=== PATIENT | male | born 1970 | race Caucasian/White ===

== ENCOUNTER 2019-12-05 11:40 | Inpatient (IN) | payer BC ==
--- NOTE | 2019-12-05 12:23 | ED ---
General Adult HPI - General Chief complaint: Shortness of Breath Stated complaint: SOB Time Seen by Provider: 12/05/19 11:45 Source: patient, RN notes reviewed, old records reviewed Mode of arrival: ambulatory Limitations: no limitations - History of Present Illness Initial comments: This is a 49-year-old male who presents emergency department stating that about 2 weeks ago had a cold and ever since then he started difficulty breathing or difficulty breathing is gotten progressively worse per patient states it particularly flat his made it worse. Sitting up he feels better. Patient states also noticed some edema to his legs over the last 3 days. Patient denies any fever chills per patient denies cough currently. Patient denies any chest pain or pressure. Patient denies any palpitations. Even though his heart rates over 100. Patient denies any headache patient denies numbness weakness. Patient denies any history of heart disease. Patient states he does have a family history of heart disease. Patient denies diabetes high blood pressure or high cholesterol. Patient denies any smoking history. - Related Data Home Medications Medication Instructions Recorded Confirmed Fexofenadine HCl [Dottie Allergy] 180 mg PO DAILY PRN 12/05/19 12/05/19 Allergies Allergy/AdvReac Type Severity Reaction Status Date / Time No Known Allergies Allergy Verified 12/05/19 14:05 Review of Systems ROS Statement: Those systems with pertinent positive or pertinent negative responses have been documented in the HPI. ROS Other: All systems not noted in ROS Statement are negative. Past Medical History Past Medical History: No Reported History History of Any Multi-Drug Resistant Organisms: None Reported Past Surgical History: No Surgical Hx Reported Past Psychological History: No Psychological Hx Reported Smoking Status: Never smoker Past Alcohol Use History: None Reported Past Drug Use History: None Reported - Past Family History Father Family Medical History: Coronary Artery Disease (CAD), Hyperlipidemia Additional Family Medical History / Comment(s): Father had CABG 25 yrs ago Mother Family Medical History: Neurologic Disorder Additional Family Medical History / Comment(s): Mother of progressive neuropalsy General Exam - General Exam Comments Initial Comments: GENERAL: Patient is well-developed and well-nourished. Patient is nontoxic and well- hydrated and is in mild distress. ENT: Neck is soft and supple. No significant lymphadenopathy is noted. Oropharynx is clear. Moist mucous membranes. Neck has full range of motion without eliciting any pain. EYES: The sclera were anicteric and conjunctiva were pink and moist. Extraocular movements were intact and pupils were equal round and reactive to light. Eyelids were unremarkable. PULMONARY: Unlabored respirations. Good breath sounds bilaterally. No audible rales rhonchi or wheezing was noted. CARDIOVASCULAR: Patient is tachycardic at 110 beats a minute ABDOMEN: Soft and nontender with normal bowel sounds. SKIN: Skin is clear with no lesions or rashes and otherwise unremarkable. NEUROLOGIC: Patient is alert and oriented x3. Cranial nerves II through XII are grossly intact. Motor and sensory are also intact. Normal speech, volume and content. Symmetrical smile. MUSCULOSKELETAL: Normal extremities with adequate strength and full range of motion. 1+ bilaterally LYMPHATICS: No significant lymphadenopathy is noted PSYCHIATRIC: Normal psychiatric evaluation. Limitations: no limitations Course Vital Signs 12/05/19 12/05/19 12/05/19 11:44 12:03 12:56 Temperature 98.7 F Pulse Rate 116 H 108 H Respiratory 18 20 18 Rate Blood Pressure 181/113 169/124 O2 Sat by Pulse 98 94 L Oximetry 12/05/19 14:00 Temperature Pulse Rate 92 Respiratory 18 Rate Blood Pressure 132/93 O2 Sat by Pulse 96 Oximetry Medical Decision Making - Medical Decision Making EKG shows sinus tachycardia 114 bpm FL interval is 214 QRS is under QT intervals 324 QTC is 446. Patient's EKG shows no ST segment elevation or depression. I spoke with Dr. Kern the care taker and he was in agreement with the current treatment that we are undergoing in the emergency department. I spoke with Dr. grimm and he agreed to admit the patient. I admitted the patient wrote admitting orders. Chest x-ray shows pulmonary edema. Echocardiogram was in the emergency department and there was some wall dysfunction as well as a low ejection fraction however in official report was not yet given. Patient also had no pericardial effusion The d-dimer was elevated so a CT of the chest was ordered. Patient was started on heparin patient was also given labetalol and hydralazine in the emergency department as well as aspirin and Nitropaste and a nitroglycerin drip. - Lab Data Result diagrams: 12/05/19 12:27 12/05/19 12:27 Lab Results 12/05/19 12/05/19 12/05/19 Range/Units 12:27 12:27 12:27 WBC 13.4 H (3.8-10.6) k/uL RBC 5.70 (4.30-5.90) m/uL Hgb 16.9 (13.0-17.5) gm/dL Hct 51.1 (39.0-53.0) % MCV 89.7 (80.0-100.0) fL MCH 29.6 (25.0-35.0) pg MCHC 33.0 (31.0-37.0) g/dL RDW 14.2 (11.5-15.5) % Plt Count 306 (150-450) k/uL Neutrophils % 87 % Lymphocytes % 8 % Monocytes % 4 % Eosinophils % 0 % Basophils % 1 % Neutrophils # 11.6 H (1.3-7.7) k/uL Lymphocytes # 1.0 (1.0-4.8) k/uL Monocytes # 0.5 (0-1.0) k/uL Eosinophils # 0.0 (0-0.7) k/uL Basophils # 0.1 (0-0.2) k/uL PT 10.3 (9.0-12.0) sec INR 1.0 (<1.2) APTT 24.8 (22.0-30.0) sec D-Dimer 0.72 H (<0.60) mg/L FEU Sodium 138 (137-145) mmol/L Potassium 4.2 (3.5-5.1) mmol/L Chloride 105 (98-107) mmol/L Carbon Dioxide 19 L (22-30) mmol/L Anion Gap 14 mmol/L BUN 7 L (9-20) mg/dL Creatinine 0.62 L (0.66-1.25) mg/dL Est GFR (CKD-EPI)AfAm >90 (>60 ml/min/1.73 sqM) Est GFR (CKD-EPI)NonAf >90 (>60 ml/min/1.73 sqM) Glucose 325 H (74-99) mg/dL Lactic Ac Sepsis Rflx Plasma Lactic Acid Boubacar (0.7-2.0) mmol/L Calcium 9.5 (8.4-10.2) mg/dL Magnesium 1.7 (1.6-2.3) mg/dL Total Bilirubin 1.0 (0.2-1.3) mg/dL AST 23 (17-59) U/L ALT 18 (4-49) U/L Alkaline Phosphatase 119 (38-126) U/L Troponin I (0.000-0.034) ng/mL NT-Pro-B Natriuret Pep pg/mL Total Protein 7.5 (6.3-8.2) g/dL Albumin 4.2 (3.5-5.0) g/dL 12/05/19 12/05/19 12/05/19 Range/Units 12:27 12:27 12:27 WBC (3.8-10.6) k/uL RBC (4.30-5.90) m/uL Hgb (13.0-17.5) gm/dL Hct (39.0-53.0) % MCV (80.0-100.0) fL MCH (25.0-35.0) pg MCHC (31.0-37.0) g/dL RDW (11.5-15.5) % Plt Count (150-450) k/uL Neutrophils % % Lymphocytes % % Monocytes % % Eosinophils % % Basophils % % Neutrophils # (1.3-7.7) k/uL Lymphocytes # (1.0-4.8) k/uL Monocytes # (0-1.0) k/uL Eosinophils # (0-0.7) k/uL Basophils # (0-0.2) k/uL PT (9.0-12.0) sec INR (<1.2) APTT (22.0-30.0) sec D-Dimer (<0.60) mg/L FEU Sodium (137-145) mmol/L Potassium (3.5-5.1) mmol/L Chloride (98-107) mmol/L Carbon Dioxide (22-30) mmol/L Anion Gap mmol/L BUN (9-20) mg/dL Creatinine (0.66-1.25) mg/dL Est GFR (CKD-EPI)AfAm (>60 ml/min/1.73 sqM) Est GFR (CKD-EPI)NonAf (>60 ml/min/1.73 sqM) Glucose (74-99) mg/dL Lactic Ac Sepsis Rflx Plasma Lactic Acid Boubacar 3.1 H* (0.7-2.0) mmol/L Calcium (8.4-10.2) mg/dL Magnesium (1.6-2.3) mg/dL Total Bilirubin (0.2-1.3) mg/dL AST (17-59) U/L ALT (4-49) U/L Alkaline Phosphatase (38-126) U/L Troponin I 0.777 H* (0.000-0.034) ng/mL NT-Pro-B Natriuret Pep 2290 pg/mL Total Protein (6.3-8.2) g/dL Albumin (3.5-5.0) g/dL 12/05/19 Range/Units 13:06 WBC (3.8-10.6) k/uL RBC (4.30-5.90) m/uL Hgb (13.0-17.5) gm/dL Hct (39.0-53.0) % MCV (80.0-100.0) fL MCH (25.0-35.0) pg MCHC (31.0-37.0) g/dL RDW (11.5-15.5) % Plt Count (150-450) k/uL Neutrophils % % Lymphocytes % % Monocytes % % Eosinophils % % Basophils % % Neutrophils # (1.3-7.7) k/uL Lymphocytes # (1.0-4.8) k/uL Monocytes # (0-1.0) k/uL Eosinophils # (0-0.7) k/uL Basophils # (0-0.2) k/uL PT (9.0-12.0) sec INR (<1.2) APTT (22.0-30.0) sec D-Dimer (<0.60) mg/L FEU Sodium (137-145) mmol/L Potassium (3.5-5.1) mmol/L Chloride (98-107) mmol/L Carbon Dioxide (22-30) mmol/L Anion Gap mmol/L BUN (9-20) mg/dL Creatinine (0.66-1.25) mg/dL Est GFR (CKD-EPI)AfAm (>60 ml/min/1.73 sqM) Est GFR (CKD-EPI)NonAf (>60 ml/min/1.73 sqM) Glucose (74-99) mg/dL Lactic Ac Sepsis Rflx Y Plasma Lactic Acid Boubacar (0.7-2.0) mmol/L Calcium (8.4-10.2) mg/dL Magnesium (1.6-2.3) mg/dL Total Bilirubin (0.2-1.3) mg/dL AST (17-59) U/L ALT (4-49) U/L Alkaline Phosphatase (38-126) U/L Troponin I (0.000-0.034) ng/mL NT-Pro-B Natriuret Pep pg/mL Total Protein (6.3-8.2) g/dL Albumin (3.5-5.0) g/dL Critical Care Time Critical Care Time: Yes Total Critical Care Time: 35 Disposition Clinical Impression: Non-STEMI (non-ST elevated myocardial infarction), Hypertensive urgency, Pulmonary edema, Hyperglycemia, Mass of soft tissue of abdomen Disposition: ADMITTED IP TO THIS [facility] Time of Disposition: 14:10
[2019-12-05 12:44] LABS: Basophils # (A) 0.1 k/uL (0-0.2); Basophils % (A) 1 %; Eosinophils % (A) 0 %; HCT 51.1 % (39.0-53.0); HGB 16.9 gm/dL (13.0-17.5); Lymphocytes % (A) 8 %; MCH 29.6 pg (25.0-35.0); MCV 89.7 fL (80.0-100.0); Mean Platelet Volume 9.2; Monocytes # (A) 0.5 k/uL (0-1.0); Monocytes % (A) 4 %; Neutrophils # (A) 11.6 k/uL (1.3-7.7); Neutrophils % (A) 87 %; Platelet Count 306 k/uL (150-450); RDW 14.2 % (11.5-15.5); WBC 13.4 k/uL (3.8-10.6)
--- NOTE | 2019-12-05 12:44 | XR ---
EXAMINATION TYPE: XR chest 2V DATE OF EXAM: 12/05/2019 COMPARISON: NONE HISTORY: Difficulty breathing TECHNIQUE: Frontal and lateral views of the chest are obtained. FINDINGS: Interstitium is increased. Patchy nodular perihilar airspace disease is present bilaterall y. No evident pneumothorax or sizable effusion. The heart is borderline enlarged. There are overlying cardiac leads. IMPRESSION: Correlate for congestive heart failure, follow-up is recommended to exclude underlying m ass. Ammonia not excluded.
[2019-12-05] MEDS ORDERED: FUROSEMIDE 10 MG/ML 4 ML VIAL IV STA (12:46)
[2019-12-05] MEDS ORDERED: LABETALOL 5 MG/ML VIAL MDV IVP STA (12:46)
[2019-12-05] MEDS ORDERED: NITROGLYCERIN OINT 1 INCH/GM PACKET TOPICAL STA (12:47)
[2019-12-05 12:53] LABS: ALT 18 U/L (4-49); AST 23 U/L (17-59); African American GFR (CKD) >90 (>60 ml/min/1.73 sqM); Albumin 4.2 g/dL (3.5-5.0); Alkaline Phosphatase 119 U/L (38-126); Anion Gap 14 mmol/L; Blood Urea Nitrogen 7 mg/dL (9-20); Calcium 9.5 mg/dL (8.4-10.2); Carbon Dioxide 19 mmol/L (22-30); Chloride 105 mmol/L (98-107); Glucose 325 mg/dL (74-99); Magnesium 1.7 mg/dL (1.6-2.3); Non-African American GFR(CKD) >90 (>60 ml/min/1.73 sqM); Potassium 4.2 mmol/L (3.5-5.1); Sodium 138 mmol/L (137-145); Total Protein 7.5 g/dL (6.3-8.2)
[2019-12-05 13:30] LABS: Partial Thromboplastin Time 24.8 sec (22.0-30.0); Prothrombin Time 10.3 sec (9.0-12.0)
[2019-12-05] MEDS ORDERED: HEPARIN SODIUM,PORCINE 5,000 UNIT/ML 1 ML VIAL IV ONE (13:35)
[2019-12-05] MEDS ORDERED: hydrALAZINE HCL 20 MG/ML 1 ML VIAL IVP STA (13:39)
[2019-12-05 13:56] LABS: D-Dimer 0.72 mg/L FEU (<0.60)
[2019-12-05] MEDS: HEPARIN SOD,PORK IN 0.45% NACL 25,000 UNIT in 0.45% NACL 1 250ML.BAG IV SCH (13:57)
[2019-12-05] MEDS ORDERED: NITROGLYCERIN-D5W PMX 50 MG in DEXTROSE/WATER 1 250ML.BAG IV ONE (14:07)
[2019-12-05] MEDS ORDERED: NITROGLYCERIN SL TABS 0.4 MG TAB SUBLINGUAL PRN (14:11)
[2019-12-05 14:44] LABS: Glucose,Whole Blood 312 mg/dL (75-99)
--- NOTE | 2019-12-05 14:46 | CT ---
EXAMINATION TYPE: CT chest angio for PE DATE OF EXAM: 12/05/2019 COMPARISON: None HISTORY: Shortness of breath. CT DLP: 665.4 mGycm CONTRAST: CT chest with contrast and 3D reconstruction with MIP imaging is performed with IV Contrast, patient injected with 100 mL of Isovue 300. Contrast-enhanced CT of the chest was performed through the course of the pulmonary arteries with miriam g and mediastinal window settings submitted. 3D reconstruction with MIP imaging was also performed. PULMONARY ARTERIES: The pulmonary arteries and their major tributaries are patent. I do not see carlos dence for sizable filling defect to suggest pulmonary embolic process. LUNGS: There is evidence of cardiomegaly with pulmonary venous congestion. Bilateral pleural effusion s noted right greater than left. Scattered areas of perihilar infiltrate noted. The findings may refl ect pulmonary edema with congestive failure. Infiltrates of other etiology not excluded. Correlate cl inically. MEDIASTINUM: Thoracic aorta is of normal caliber,however, evaluation is limited given timing of the contrast bolus. If there is concern for thoracic aortic pathology consider ROXIE. Correlate clinicall y . The heart is not enlarged. No evidence for mediastinal mass. No mediastinal lymph nodes greater than 1cm. HILAR STRUCTURES: No evidence for mass. No hilar lymph nodes greater than 1 cm. UPPER ABDOMEN: Suspect soft tissue mass left upper quadrant measuring 7.8 x 5.9 cm. Contrast-enhanced CT of the abdomen and pelvis is advised. Decreased attenuation within the spleen at its periphery co uld reflect an area of the infarct. Underlying lesion is not excluded. IMPRESSION: 1. No evidence for Pulmonary embolism at this time. 2. Findings which may reflect congestive failure with pulmonary edema. Underlying pneumonia is not ex cluded. Correlate clinically. 3. Suspect soft tissue mass left upper quadrant measuring 7.8 x 5.9 cm. Contrast-enhanced CT of the a bdomen and pelvis is advised. Decreased attenuation within the spleen at its periphery could reflect an area of the infarct. Underlying lesion is not excluded.
--- NOTE | 2019-12-05 16:57 | P.HPIM ---
History of Present Illness H&P Date: 12/05/19 49-year-old male with no significant past medical history, has never seen a PCP presents to the ED for shortness of breath. Patient reports 2 weeks ago having flulike symptoms characterized by rhinorrhea, nasal congestion, dry cough and myalgias. He was tested for coronavirus at that time and states he was negative. He reports shortness of breath that has been ongoing for the past 2 days. Shortness of breath is worsened with exertion. He also reports orthopnea over the last 2 days, sleeps on one pillow at night. He reports lower extremity swelling as well. These constellation of symptoms prompted patient to come to the ED. He denies any headache, nausea or vomiting, fever or chills, chest pain, palpitations, changes in urination or bowel habits. No changes in appetite or weight. He denies any dizziness, numbness/weakness/tingling of the extremities. In the ED, he was in hypertensive urgency with BP of 181/113 with pulse of 116. CBC showed WBC count of 13.4. D-dimer was elevated at 0.72. CMP showed bicarb of 19, BUN 7, creatinine 0.62, glucose 325. Lactic acid was eleva jessy at 3.1. Troponin was 0.777, 0.789, EKG showing sinus tachycardia with first-degree AV block and T-wave inversions. BNP was 2290, chest x-ray showing congestive heart failure. CTA chest showed no PE, congestive heart failure with pulmonary edema, soft tissue mass left upper quadrant 7.8 x 5.9 cm, recommending CT contrast-enhanced of the abdomen and pelvis. Patient is admitted for hypertensive urgency, non-ST elevation MD and CHF exacerbation with cardiology in consultation. Review of Systems Pertinent positives and negatives as discussed in HPI, a complete review of systems was performed and all other systems are negative. Past Medical History Past Medical History: No Reported History Additional Past Medical History / Comment(s): Sinus infections/allergies History of Any Multi-Drug Resistant Organisms: None Reported Past Surgical History: No Surgical Hx Reported Past Anesthesia/Blood Transfusion Reactions: Unable to Obtain Additional Past Anesthesia/Blood Transfusion Reaction / Comment(s): Pt has never had anesthesia Past Psychological History: No Psychological Hx Reported Smoking Status: Never smoker Past Alcohol Use History: None Reported Past Drug Use History: None Reported - Past Family History Father Family Medical History: Coronary Artery Disease (CAD), Hyperlipidemia Additional Family Medical History / Comment(s): Father had CABG 25 yrs ago Mother Family Medical History: Neurologic Disorder Additional Family Medical History / Comment(s): Mother of progressive neuropalsy Medications and Allergies Home Medications Medication Instructions Recorded Confirmed Type Fexofenadine HCl [Dottie Allergy] 180 mg PO DAILY PRN 12/05/19 12/05/19 History Allergies Allergy/AdvReac Type Severity Reaction Status Date / Time No Known Allergies Allergy Verified 12/05/19 14:05 Physical Exam Vitals: Vital Signs Temp Pulse Resp BP Pulse Ox 12/05/19 15:00 95 18 135/97 96 12/05/19 14:00 92 18 132/93 96 12/05/19 12:56 108 H 18 169/124 94 L 12/05/19 12:03 20 12/05/19 11:44 98.7 F 116 H 18 181/113 98 Intake and Output 12/05/19 12/05/19 12/05/19 06:59 14:59 22:59 Other: Weight 101.605 kg 101.605 kg General: [non toxic], [no distress], [appears at stated age] Derm: [warm], [dry] Head: [atraumatic], [normocephalic], [symmetric] Eyes: [EOMI], [no lid lag], [anicteric sclera] Mouth: [no lip lesion], [mucus membranes moist] Cardiovascular: [S1S2 reg], [tachycardic], [positive posterior tibial pulse bilateral], Lungs: [Decreased breath sounds bilateral], [no rhonchi, no rales] , [no accessory muscle use] Abdominal: [soft], [ nontender to palpation], [no guarding], [no appreciable organomegaly] Ext: [no gross muscle atrophy], [2+ pitting lower extremity bilateral edema], [no contractures] Neuro: [ CN II-XI grossly intact], [no focal neuro deficits] Psych: [Alert], [oriented], [appropriate affect] Results CBC & Chem 7: 12/05/19 12:27 12/05/19 12:27 Labs: Abnormal Lab Results - Last 24 Hours (Table) 12/05/19 12/05/19 12/05/19 Range/Units 12:27 12:27 12:27 WBC 13.4 H (3.8-10.6) k/uL Neutrophils # 11.6 H (1.3-7.7) k/uL D-Dimer 0.72 H (<0.60) mg/L FEU Carbon Dioxide 19 L (22-30) mmol/L BUN 7 L (9-20) mg/dL Creatinine 0.62 L (0.66-1.25) mg/dL Glucose 325 H (74-99) mg/dL POC Glucose (mg/dL) (75-99) mg/dL Plasma Lactic Acid Boubacar (0.7-2.0) mmol/L Troponin I (0.000-0.034) ng/mL 12/05/19 12/05/19 12/05/19 Range/Units 12:27 12:27 14:38 WBC (3.8-10.6) k/uL Neutrophils # (1.3-7.7) k/uL D-Dimer (<0.60) mg/L FEU Carbon Dioxide (22-30) mmol/L BUN (9-20) mg/dL Creatinine (0.66-1.25) mg/dL Glucose (74-99) mg/dL POC Glucose (mg/dL) 312 H (75-99) mg/dL Plasma Lactic Acid Boubacar 3.1 H* (0.7-2.0) mmol/L Troponin I 0.777 H* (0.000-0.034) ng/mL 12/05/19 Range/Units 15:31 WBC (3.8-10.6) k/uL Neutrophils # (1.3-7.7) k/uL D-Dimer (<0.60) mg/L FEU Carbon Dioxide (22-30) mmol/L BUN (9-20) mg/dL Creatinine (0.66-1.25) mg/dL Glucose (74-99) mg/dL POC Glucose (mg/dL) (75-99) mg/dL Plasma Lactic Acid Boubacar (0.7-2.0) mmol/L Troponin I 0.789 H* (0.000-0.034) ng/mL Thrombosis Risk Factor Assmnt - Choose All That Apply Any of the Below Risk Factors Present?: Yes Each Factor Represents 1 point: Age 41-60 years, Obesity (BMI >25) Each Risk Factor Represents 2 Points: Arthroscopic surgery Other congenital or acquired thrombophilia - If yes, enter type in comment: No Thrombosis Risk Factor Assessment Total Risk Factor Score: 4 Thrombosis Risk Factor Assessment Level: Moderate Risk Assessment and Plan Assessment: Non-ST elevation MD Hypertensive urgency Systolic CHF exacerbation Lactic acidosis Hyperglycemia Left upper quadrant mass Elevated d-dimer Patient is troponins elevated at 0.777, 0.789 with EKG showing sinus tachycardia with first-degree AV block and T-wave inversions. Elevated troponins possibly related to ACS versus viral cardiomyopathy. Plans: Trend troponin/EKG to rule out ACS. Started on heparin drip from the ED. Telemetry monitoring. Start aspirin, Lipitor and metoprolol. Follow-up echocardiogram. Follow-up cardiology consultation. BP 135/97, 181/113 on admission. Given hydralazine IV, labetalol IV and nitroglycerin drip in the ED. Plans: Start Coreg. Start lisinopril. Monitor vitals, adjust medications if necessary. CTA chest showing pulmonary edema. Prelim echo read shows depressed EF. Plans: Start Lasix 40 mg IV twice a day. Strict intake and output. Daily weights. Cardiac diet. Waiting on official echo read. Follow cardiology consultation. Lactic acid 3.1. Plans: Encourage hydration by mouth. Repeat until negative. Blood glucose 325. Plans: Insulin sliding scale. Regular Accu-Cheks. Hypoglycemic precautions. Follow A1c. As seen on CTA chest. Plans: Will need CT abdomen and pelvis with contrast. CT chest ruled out PE. Plans: Continue to monitor. DVT prophylaxis: [Heparin drip] Discussed with: [Patient and father] Anticipated discharge: [2-3 days] Anticipated discharge place: [Home] A total of [45] minutes was spent on the care of this complex patient more than 50% of the time was spent in counseling and care coordination. Patient has no PCP. He names his father decision maker if he cant make decisions for himself. Patient elected to be full code.
[2019-12-05 17:11] LABS: Glucose,Whole Blood 281 mg/dL (75-99)
[2019-12-05] MEDS: carvediloL 6.25 MG TAB PO SCH (19:03)
[2019-12-05] MEDS: INSULIN ASPART (NovoLOG) 100 UNIT/ML VIAL SQ SCH ×2 (19:04→21:10)
[2019-12-05 20:43] LABS: Glucose,Whole Blood 225 mg/dL (75-99)
[2019-12-05] MEDS ORDERED: FUROSEMIDE 10 MG/ML 2 ML VIAL IV SCH (21:00)
[2019-12-05] MEDS: ATORVASTATIN 40 MG TAB PO SCH (21:10)
[2019-12-05] MEDS: FUROSEMIDE 10 MG/ML 4 ML VIAL IV SCH (21:10)
[2019-12-06 02:06] LABS: Cholesterol 223 mg/dL (<200); HDL Cholesterol 32 mg/dL (40-60); LDL Cholesterol,Calculated 163 mg/dL (0-99); Triglycerides 138 mg/dL (<150)
[2019-12-06] MEDS ORDERED: HEPARIN SODIUM,PORCINE 5,000 UNIT/ML 1 ML VIAL IV PRN (02:36)
[2019-12-06 06:17] LABS: Glucose,Whole Blood 147 mg/dL (75-99)
[2019-12-06] MEDS: INSULIN ASPART (NovoLOG) 100 UNIT/ML VIAL SQ SCH ×4 (06:29→21:40)
[2019-12-06] MEDS: carvediloL 6.25 MG TAB PO SCH ×2 (06:29→17:46)
[2019-12-06] MEDS ORDERED: ASPIRIN 325 MG TAB PO SCH (09:00)
[2019-12-06] MEDS ORDERED: SODIUM CHLORIDE 0.9% 1,000 ML in EMPTY BAG 1 BAG IV ONE (09:49)
[2019-12-06] MEDS ORDERED: ALPRAZolam 0.25 MG TAB PO PRN (09:49)
[2019-12-06] MEDS ORDERED: NITROGLYCERIN SL TABS 0.4 MG TAB SUBLINGUAL PRN (09:49)
[2019-12-06] MEDS ORDERED: ALPRAZolam 0.5 MG TAB PO PRN (09:49)
[2019-12-06] MEDS: ASPIRIN 81 MG PO SCH ×2 (10:02→10:24)
[2019-12-06] MEDS: ATORVASTATIN 40 MG TAB PO SCH ×2 (10:03→21:40)
--- NOTE | 2019-12-06 10:15 | ECHOF ---
Referral Reason:new onset pulmunary edema MEASUREMENTS -------- HEIGHT: 172.7 cm WEIGHT: 101.6 kg BP: IVSd: 1.6 cm (0.6 - 1.1) LVIDd: 4.2 cm (3.9 - 5.3) LVPWd: 1.5 cm (0.6 - 1.1) IVSs: 2.0 cm LVIDs: 4.0 cm LVPWs: 1.8 cm LAESV Index (A-L): 16.82 ml/m Ao Diam: 3.3 cm (2.0 - 3.7) AV Cusp: 1.7 cm (1.5 - 2.6) LA Diam: 3.7 cm (2.7 - 3.8) MV EXCURSION: 15.965 mm (> 18.000) MV EF SLOPE: 99 mm/s (70 - 150) EPSS: 2.2 cm MV E Gonzales: 1.01 m/s MV DecT: 149 ms MV A Gonzales: 0.17 m/s MV E/A Ratio: 5.95 RAP: 5.00 mmHg RVSP: 10.17 mmHg FINDINGS -------- This was a technically difficult study with suboptimal views. The left ventricular size is normal. There is moderate concentric left ventricular hypertrophy. O verall left ventricular systolic function is moderate-severely impaired with, an EF between 30 - 35 % . Normal LAP Grade 1 Diastolic Dysfunction. Basal inferoseptal LV wall motion is hypokinetic. Mid to basal inferiorlateral is hypokinetic The right ventricle is normal in size. The left atrial size is normal. The right atrial size is normal. Lumason used The aortic valve is trileaflet and appears structurally normal. The mitral valve is normal. There is trace mitral regurgitation. The tricuspid valve appears structurally normal. Trace tricuspid regurgitation present. Right willi tricular systolic pressure is normal at < 35 mmHg. There is no pulmonic regurgitation present. The aortic root size is normal. Normal inferior vena cava with normal inspiratory collapse consistent with estimated right atrial pre ssure of 5 mmHg. There is no pericardial effusion. CONCLUSIONS -------- 1. The left ventricular size is normal. 2. There is moderate concentric left ventricular hypertrophy. 3. Overall left ventricular systolic function is moderate-severely impaired with, an EF between 30 - 35 %. 4. Normal LAP Grade 1 Diastolic Dysfunction. 5. Basal inferoseptal LV wall motion is hypokinetic. 6. Mid to basal inferiorlateral is hypokinetic 7. There is trace mitral regurgitation. 8. Trace tricuspid regurgitation present. 9. There is no pericardial effusion. ACCOUNT PLANNER: Antonieta Shook RDCS
[2019-12-06] MEDS: lisinopriL 10 MG TAB PO SCH (10:24)
[2019-12-06] MEDS: FUROSEMIDE 10 MG/ML 4 ML VIAL IV SCH ×2 (10:25→21:40)
[2019-12-06 10:33] LABS: African American GFR (CKD) >90 (>60 ml/min/1.73 sqM); Anion Gap 10 mmol/L; Blood Urea Nitrogen 9 mg/dL (9-20); Calcium 8.8 mg/dL (8.4-10.2); Carbon Dioxide 22 mmol/L (22-30); Chloride 107 mmol/L (98-107); Glucose 185 mg/dL (74-99); Non-African American GFR(CKD) >90 (>60 ml/min/1.73 sqM); Potassium 3.9 mmol/L (3.5-5.1); Sodium 139 mmol/L (137-145)
[2019-12-06 11:39] LABS: Glucose,Whole Blood 244 mg/dL (75-99)
--- NOTE | 2019-12-06 11:57 | P.CRDCN ---
History of Present Illness Consult date: 12/06/19 History of present illness: CHIEF COMPLAINT: elevated troponin HISTORY OF PRESENT ILLNESS: This is a 49-year old male with no known past medical history. 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 We have been asked to see the patient in consultation for NSTEMI. Patient examined this morning at the bedside. Patient states he was having flulike symptoms approximately 2 weeks ago. He was tested for coronavirus which was negative. He states over the past few days he began having shortness of breath. He reports the SOB is worse at night when he is laying flat. He denied chest pain or pressure. No fever or chills. No fever or chills. No nausea, vomiting, or diarrhea. Patient states he went to urgent care who took a chest xray and recommended the patient come to the ER for further evaluation. Patient states his father had a CABG x 2 in his 40s. Patient denies history of smoking. He reports social alcohol use. Patients blood pressure was elevated in the ER at 181/113. DIAGNOSTICS: EKG reveals sinus tachycardia. Chest xray correlate for congestive heart failure. Pneumonia not excluded. Chest CTA: no evidence of pulmonary nose and. Findings reflective of congestive heart failure with pulmonary edema. Underlying pneumonia was not excluded. Suspect soft tissue mass left upper quadrant measuring 7.8 x 5.9 cm. Laboratory data: WBC 13.4. Hemoglobin 16.9. Platelet count 306. d-dimer 0.72. sodium 138. Potassium 4.2. BUN 7. Creatinine 0.62. Glucose 325. Lactic acid 3.1. LDL 163. BNP 2290. Troponin 0.777. 0.789. 0.706. Current home cardiac medications include none REVIEW OF SYSTEMS: At the time of my exam: CONSTITUTIONAL: Denies fever or chills. HEENT: Denies blurred vision, vision changes, or eye pain. Denies hemoptysis CARDIOVASCULAR: Denies chest pain, orthopnea, PND or palpitations RESPIRATORY: No shortness of breath. GASTROINTESTINAL: Denies abdominal pain. Denies nausea or vomiting. HEMATOLOGIC: Denies bleeding disorders. GENITOURINARY: Denies any blood in urine. SKIN: Denies pruitis. Denies rash. PHYSICAL EXAM: VITAL SIGNS: Reviewed. GENERAL: Well-developed in no acute distress. HEENT: Head is normocephalic. Pupils are equal, round. Sclerae anicteric. Mucous membranes of the mouth are moist. Neck supple. No JVD or thyromegaly LUNGS: Respirations even and unlabored. Lungs diminished. HEART: Regular rate and rhythm. S1 and S2 heard. ABDOMEN: Soft. Nondistended. Nontender. EXTREMITIES: Normal range of motion. No clubbing or cyanosis. Peripheral pulses intact. Trace bilateral lower extremity edema NEUROLOGIC: Awake and alert. Oriented x 3. ASSESSMENT: NSTEMI Acute heart failure, type unknown, echo pending, BNP 2290 Hypertension Hyperlipidemia Hyperglycemia, possible diabetes mellitus, hemoglobin A1c pending Family history of premature coronary artery disease Obesity: BMI 34.1 PLAN: Continue aspirin, lipitor, coreg, and lisinopril Continue IV heparin Await hemoglobin A1C Await results of 2D echo Continue IV lasix. Daily weights. Accurate I&O. Patient to undergo cardiac cath tomorrow with Dr. Kern Nurse practitioner note has been reviewed by physician. Signing provider agrees with the documented findings, assessment, and plan of care. Past Medical History Past Medical History: No Reported History Additional Past Medical History / Comment(s): Sinus infections/allergies History of Any Multi-Drug Resistant Organisms: None Reported Past Surgical History: No Surgical Hx Reported Past Anesthesia/Blood Transfusion Reactions: Unable to Obtain Additional Past Anesthesia/Blood Transfusion Reaction / Comment(s): Pt has never had anesthesia Past Psychological History: No Psychological Hx Reported Smoking Status: Never smoker Past Alcohol Use History: None Reported Past Drug Use History: None Reported - Past Family History Father Family Medical History: Coronary Artery Disease (CAD), Hyperlipidemia Additional Family Medical History / Comment(s): Father had CABG 25 yrs ago Mother Family Medical History: Neurologic Disorder Additional Family Medical History / Comment(s): Mother of progressive neuropalsy Medications and Allergies Home Medications Medication Instructions Recorded Confirmed Type Fexofenadine HCl [Dottie Allergy] 180 mg PO DAILY PRN 12/05/19 12/05/19 History Allergies Allergy/AdvReac Type Severity Reaction Status Date / Time No Known Allergies Allergy Verified 12/05/19 14:05 Physical Exam Vitals: Vital Signs Temp Pulse Pulse Resp BP BP Pulse Ox 12/06/19 04:00 98.1 F 86 18 117/64 93 L 12/06/19 00:41 97.9 F 82 16 120/87 98 12/05/19 20:43 98.0 F 103 H 16 142/91 93 L 12/05/19 16:42 98.7 F 95 18 135/97 96 12/05/19 16:00 97.8 F 105 H 16 157/107 94 L 12/05/19 15:00 95 18 135/97 96 12/05/19 14:00 92 18 132/93 96 12/05/19 12:56 108 H 18 169/124 94 L 12/05/19 12:03 20 12/05/19 11:44 98.7 F 116 H 18 181/113 98 Intake and Output 12/05/19 12/06/19 12/06/19 22:59 06:59 14:59 Intake Total 360 129.333 Output Total 100 600 Balance 260 -470.667 Intake: Intake, IV Titration 129.333 Amount Heparin Sod,Pork in 0.45% 129.333 NaCl 25,000 unit In 0.45 % NaCl 1 250ml.bag @ 9. 842 UNITS/KG/HR 10 mls/hr IV .Q24H [facility] Rx#: [id number] Oral 360 Output: Urine 100 600 Other: # Voids 1 Weight 101.605 kg Results 12/05/19 12:27 12/06/19 08:06 Cardiac Enzymes 12/05/19 12/05/19 12/05/19 Range/Units 12:27 12:27 15:31 AST 23 (17-59) U/L Troponin I 0.777 H* 0.789 H* (0.000-0.034) ng/mL 12/05/19 Range/Units 17:47 AST (17-59) U/L Troponin I 0.706 H* (0.000-0.034) ng/mL Coagulation 12/05/19 12/06/19 12/06/19 Range/Units 12:27 00:22 08:06 PT 10.3 (9.0-12.0) sec APTT 24.8 28.6 27.5 (22.0-30.0) sec Lipids 12/06/19 Range/Units 00:22 Triglycerides 138 (<150) mg/dL Cholesterol 223 H (<200) mg/dL HDL Cholesterol 32 L (40-60) mg/dL CBC 12/05/19 Range/Units 12:27 WBC 13.4 H (3.8-10.6) k/uL RBC 5.70 (4.30-5.90) m/uL Hgb 16.9 (13.0-17.5) gm/dL Hct 51.1 (39.0-53.0) % Plt Count 306 (150-450) k/uL Comprehensive Metabolic Panel 12/05/19 Range/Units 12:27 Sodium 138 (137-145) mmol/L Potassium 4.2 (3.5-5.1) mmol/L Chloride 105 (98-107) mmol/L Carbon Dioxide 19 L (22-30) mmol/L BUN 7 L (9-20) mg/dL Creatinine 0.62 L (0.66-1.25) mg/dL Glucose 325 H (74-99) mg/dL Calcium 9.5 (8.4-10.2) mg/dL AST 23 (17-59) U/L ALT 18 (4-49) U/L Alkaline Phosphatase 119 (38-126) U/L Total Protein 7.5 (6.3-8.2) g/dL Albumin 4.2 (3.5-5.0) g/dL Current Medications Generic Name Dose Route Start Last Admin Trade Name Freq PRN Reason Stop Dose Admin Aspirin 81 mg 12/06/19 09:00 Aspirin 81 Mg PO DAILY HERNANDEZ Atorvastatin Calcium 40 mg 12/05/19 21:00 12/05/19 21:10 Atorvastatin 40 Mg Tab PO 40 mg HS HERNANDEZ Administration Carvedilol 6.25 mg 12/05/19 17:30 12/06/19 06:29 Carvedilol 6.25 Mg Tab PO 6.25 mg BID-W/MEALS HERNANDEZ Administration Furosemide 40 mg 12/05/19 21:00 12/05/19 21:10 Furosemide 10 Mg/Ml 4 Ml Vial IV 40 mg Q12HR HERNANDEZ Administration Heparin Sodium (Porcine) 0 unit 12/06/19 02:36 Heparin Sodium,Porcine 5,000 Unit/Ml 1 Ml Vial IV PER PROTOCOL PRN Low PTT Protocol Heparin Sodium/Sodium Chloride 250 mls @ 10 mls/hr 12/05/19 13:45 12/06/19 02:53 25,000 unit/ Sodium Chloride IV 12.79 units/kg/hr .Q24H HERNANDEZ 13 mls/hr Titration Protocol 9.842 UNITS/KG/HR Insulin Aspart 0 unit 12/05/19 17:30 12/06/19 06:29 Insulin Aspart (Novolog) 100 Unit/Ml Vial SQ 1 unit ACHS [facility] Administration Protocol Lisinopril 10 mg 12/06/19 09:00 Lisinopril 10 Mg Tab PO DAILY HERNANDEZ Nitroglycerin 0.4 mg 12/05/19 14:11 Nitroglycerin Sl Tabs 0.4 Mg Tab SUBLINGUAL Q5M PRN Chest Pain Intake and Output 12/05/19 12/06/19 12/06/19 22:59 06:59 14:59 Intake Total 360 129.333 Output Total 100 600 Balance 260 -470.667 Intake: Intake, IV Titration 129.333 Amount Heparin Sod,Pork in 0.45% 129.333 NaCl 25,000 unit In 0.45 % NaCl 1 250ml.bag @ 9. 842 UNITS/KG/HR 10 mls/hr IV .Q24H [facility] Rx#: [id number] Oral 360 Output: Urine 100 600 Other: # Voids 1 Weight 101.605 kg 12/05/19 12:27 12/05/19 12:27
--- NOTE | 2019-12-06 12:58 | P.GSCN ---
History of Present Illness Consult date: 12/06/19 Reason for Consult: Possible splenic infarct Requesting physician: Sammy Swenson History of present illness: 49-year-old male with no significant past medical history, has never seen a PCP presents to the ED for shortness of breath. Patient reports 2 weeks ago having flulike symptoms characterized by rhinorrhea, nasal congestion, dry cough and myalgias. He was tested for coronavirus at that time and states he was negative. He reports shortness of breath that has been ongoing for the past 2 days. Shortness of breath is worsened with exertion. He also reports orthopnea over the last 2 days, sleeps on one pillow at night. He reports lower extremity swelling as well. These constellation of symptoms prompted patient to come to the ED. He denies any headache, nausea or vomiting, fever or chills, chest pain, palpitations, changes in urination or bowel habits. No changes in appetite or weight. He denies any dizziness, numbness/weakness/tingling of the extremities. In the ED, he was in hypertensive urgency with BP of 181/113 with pulse of 116. CBC showed WBC count of 13.4. D-dimer was elevated at 0.72. CMP showed bicarb of 19, BUN 7, creatinine 0.62, glucose 325. Lactic acid was elevated at 3.1. Troponin was 0.777, 0.789, EKG showing sinus tachycardia with first-degree AV block and T-wave inversions. BNP was 2290, chest x-ray showing congestive heart failure. CTA chest showed no PE, congestive heart failure with pulmonary edema, soft tissue mass left upper quadrant 7.8 x 5.9 cm, with decreased attenuation within the spleen in its periphery artery could reflect an area of the infarct. Underlying lesion is not excluded recommending CT contrast-enhanced of the abdomen and pelvis. Patient is admitted for hypertensive urgency, non-ST elevation [place] and CHF exacerbation with cardiology in consultation. Echocardiogram showed an EF between 30-35%. The patient is scheduled for a cardiac catheterization tomorrow. He is currently on a heparin drip. R Review of Systems A 14 point review of systems was completed all pertinent positives and negatives as stated in the HPI. Past Medical History Past Medical History: No Reported History Additional Past Medical History / Comment(s): Sinus infections/allergies History of Any Multi-Drug Resistant Organisms: None Reported Past Surgical History: No Surgical Hx Reported Past Anesthesia/Blood Transfusion Reactions: Unable to Obtain Additional Past Anesthesia/Blood Transfusion Reaction / Comm: Pt has never had a nesthesia Past Psychological History: No Psychological Hx Reported Smoking Status: Never smoker Past Alcohol Use History: None Reported Past Drug Use History: None Reported - Past Family History Father Family Medical History: Coronary Artery Disease (CAD), Hyperlipidemia Additional Family Medical History / Comment(s): Father had CABG 25 yrs ago Mother Family Medical History: Neurologic Disorder Additional Family Medical History / Comment(s): Mother of progressive neuropalsy Medications and Allergies Home Medications Medication Instructions Recorded Confirmed Type Fexofenadine HCl [Dottie Allergy] 180 mg PO DAILY PRN 12/05/19 12/05/19 History Allergies Allergy/AdvReac Type Severity Reaction Status Date / Time No Known Allergies Allergy Verified 12/05/19 14:05 Surgical - Exam Vital Signs Temp Pulse Resp BP Pulse Ox 98.7 F 116 H 18 181/113 98 12/05/19 11:44 12/05/19 11:44 12/05/19 11:44 12/05/19 11:44 12/05/19 11:44 General appearance: The patient is alert, oriented, in no acute distress. HET: Head is normocephalic and atraumatic. Pupils are equal and reactive. Neck: Supple without lymphadenopathy. Trachea midline. No carotid bruit appreciated bilaterally. Heart: S1 S2. Regular rate and rhythm. Lungs: Diminished, even and unlabored. Abdomen: Soft, nontender, nondistended with bowel sounds. No palpable organomegaly Extremities: Normal skin color and turgor. Minimal bilateral lower extremity edema. Palpable +2 radial and DP pulses bilaterally. Neurological: No focal deficits. Strength and sensation are grossly intact. Results CTA chest showed no PE, congestive heart failure with pulmonary edema, soft tissue mass left upper quadrant 7.8 x 5.9 cm, with decreased attenuation within the spleen in its periphery artery could reflect an area of the infarct. Underlying lesion is not excluded recommending CT contrast-enhanced of the abdomen and pelvis. Chest x-ray correlate for congestive heart failure. Pneumonia not excluded. Echocardiogram showed there is left ventricular size is normal, there is moderate concentric left ventricular hypertrophy, overall left ventricular systolic function is moderate-severely impaired with an EF between 30-35%, normal LEEP grade 1 diastolic dysfunction, mitral regurgitation, trace tricuspid regurgitation present, no evidence of pericardial effusion. - Labs 12/05/19 12:27 12/06/19 08:06 Abnormal Lab Results - Last 24 Hours (Table) 12/05/19 12/05/19 12/05/19 Range/Units 12:27 12:27 12:27 WBC 13.4 H (3.8-10.6) k/uL Neutrophils # 11.6 H (1.3-7.7) k/uL D-Dimer 0.72 H (<0.60) mg/L FEU Carbon Dioxide 19 L (22-30) mmol/L BUN 7 L (9-20) mg/dL Creatinine 0.62 L (0.66-1.25) mg/dL Glucose 325 H (74-99) mg/dL POC Glucose (mg/dL) (75-99) mg/dL Plasma Lactic Acid [place] (0.7-2.0) mmol/L Troponin I (0.000-0.034) ng/mL Cholesterol (<200) mg/dL LDL Cholesterol, Calc (0-99) mg/dL HDL Cholesterol (40-60) mg/dL 12/05/19 12/05/19 12/05/19 Range/Units 12:27 12:27 14:38 WBC (3.8-10.6) k/uL Neutrophils # (1.3-7.7) k/uL D-Dimer (<0.60) mg/L FEU Carbon Dioxide (22-30) mmol/L BUN (9-20) mg/dL Creatinine (0.66-1.25) mg/dL Glucose (74-99) mg/dL POC Glucose (mg/dL) 312 H (75-99) mg/dL Plasma Lactic Acid [place] 3.1 H* (0.7-2.0) mmol/L Troponin I 0.777 H* (0.000-0.034) ng/mL Cholesterol (<200) mg/dL LDL Cholesterol, Calc (0-99) mg/dL HDL Cholesterol (40-60) mg/dL 12/05/19 12/05/19 12/05/19 Range/Units 15:31 17:10 17:47 WBC (3.8-10.6) k/uL Neutrophils # (1.3-7.7) k/uL D-Dimer (<0.60) mg/L FEU Carbon Dioxide (22-30) mmol/L BUN (9-20) mg/dL Creatinine (0.66-1.25) mg/dL Glucose (74-99) mg/dL POC Glucose (mg/dL) 281 H (75-99) mg/dL Plasma Lactic Acid [place] (0.7-2.0) mmol/L Troponin I 0.789 H* 0.706 H* (0.000-0.034) ng/mL Cholesterol (<200) mg/dL LDL Cholesterol, Calc (0-99) mg/dL HDL Cholesterol (40-60) mg/dL 12/05/19 12/06/19 12/06/19 Range/Units 20:42 00:22 06:16 WBC (3.8-10.6) k/uL Neutrophils # (1.3-7.7) k/uL D-Dimer (<0.60) mg/L FEU Carbon Dioxide (22-30) mmol/L BUN (9-20) mg/dL Creatinine (0.66-1.25) mg/dL Glucose (74-99) mg/dL POC Glucose (mg/dL) 225 H 147 H (75-99) mg/dL Plasma Lactic Acid [place] (0.7-2.0) mmol/L Troponin I (0.000-0.034) ng/mL Cholesterol 223 H (<200) mg/dL LDL Cholesterol, Calc 163 H (0-99) mg/dL HDL Cholesterol 32 L (40-60) mg/dL 12/06/19 12/06/19 Range/Units 08:06 11:37 WBC (3.8-10.6) k/uL Neutrophils # (1.3-7.7) k/uL D-Dimer (<0.60) mg/L FEU Carbon Dioxide (22-30) mmol/L BUN (9-20) mg/dL Creatinine 0.59 L (0.66-1.25) mg/dL Glucose 185 H (74-99) mg/dL POC Glucose (mg/dL) 244 H (75-99) mg/dL Plasma Lactic Acid [place] (0.7-2.0) mmol/L Troponin I (0.000-0.034) ng/mL Cholesterol (<200) mg/dL LDL Cholesterol, Calc (0-99) mg/dL HDL Cholesterol (40-60) mg/dL Diabetes panel 12/05/19 12/06/19 12/06/19 Range/Units 12:27 00:22 08:06 Sodium 138 139 (137-145) mmol/L Potassium 4.2 3.9 (3.5-5.1) mmol/L Chloride 105 107 (98-107) mmol/L Carbon Dioxide 19 L 22 (22-30) mmol/L BUN 7 L 9 (9-20) mg/dL Creatinine 0.62 L 0.59 L (0.66-1.25) mg/dL Glucose 325 H 185 H (74-99) mg/dL Calcium 9.5 8.8 (8.4-10.2) mg/dL AST 23 (17-59) U/L ALT 18 (4-49) U/L Alkaline Phosphatase 119 (38-126) U/L Total Protein 7.5 (6.3-8.2) g/dL Albumin 4.2 (3.5-5.0) g/dL Triglycerides 138 (<150) mg/dL HDL Cholesterol 32 L (40-60) mg/dL Calcium panel 12/05/19 12/06/19 Range/Units 12:27 08:06 Calcium 9.5 8.8 (8.4-10.2) mg/dL Albumin 4.2 (3.5-5.0) g/dL Pituitary panel 12/05/19 12/06/19 Range/Units 12:27 08:06 Sodium 138 139 (137-145) mmol/L Potassium 4.2 3.9 (3.5-5.1) mmol/L Chloride 105 107 (98-107) mmol/L Carbon Dioxide 19 L 22 (22-30) mmol/L BUN 7 L 9 (9-20) mg/dL Creatinine 0.62 L 0.59 L (0.66-1.25) mg/dL Glucose 325 H 185 H (74-99) mg/dL Calcium 9.5 8.8 (8.4-10.2) mg/dL Adrenal panel 12/05/19 12/06/19 Range/Units 12:27 08:06 Sodium 138 139 (137-145) mmol/L Potassium 4.2 3.9 (3.5-5.1) mmol/L Chloride 105 107 (98-107) mmol/L Carbon Dioxide 19 L 22 (22-30) mmol/L BUN 7 L 9 (9-20) mg/dL Creatinine 0.62 L 0.59 L (0.66-1.25) mg/dL Glucose 325 H 185 H (74-99) mg/dL Calcium 9.5 8.8 (8.4-10.2) mg/dL Total Bilirubin 1.0 (0.2-1.3) mg/dL AST 23 (17-59) U/L ALT 18 (4-49) U/L Alkaline Phosphatase 119 (38-126) U/L Total Protein 7.5 (6.3-8.2) g/dL Albumin 4.2 (3.5-5.0) g/dL Assessment and Plan Assessment: 1. Possible splenic infarct as seen on CT angiogram of chest 2. Non-ST elevation [place] 3. Hypertensive urgency 4. Systolic CHF exacerbation 5. Soft tissue mass left upper quadrant as seen on CT angiogram 6. Elevated d-dimer Plan: The patient and CT angiogram findings were discussed with Dr. Lopez. At this time would recommend cardiology to continue full workup. Agree with anticoag ulation. Can consider MRA of the abdomen and pelvis for further evaluation of the left upper quadrant mass. There is no indication for any acute vascular surgical intervention at this time. Will follow with you closely. Further recommendations to follow. Thank you for this kind referral and the opportunity to participate in the care of your patient. This consultation was discussed with Dr. Lopez. The impression and plan of care have been directed as dictated.
[2019-12-06 14:10] LABS: Hemoglobin A1C 10.8 % (4.0-6.0)
--- NOTE | 2019-12-06 14:29 | P.PN ---
Subjective Progress Note Date: 12/06/19 Patient was seen and examined. No acute events overnight. Patient reports improvement in his shortness of breath since admission. No more orthopnea. Lower extremity swelling improving. He denies any chest pain, shortness of breath or palpitations. No nausea or vomiting. No fever or chills. Objective - Vital Signs Vital signs: Vital Signs Temp 98.0 F 12/06/19 09:35 Pulse 87 12/06/19 09:35 Resp 18 12/06/19 09:35 BP 144/104 12/06/19 09:35 Pulse Ox 94 L 12/06/19 09:35 Intake & Output 12/05/19 12/06/19 12/06/19 18:59 06:59 18:59 Intake Total 360 129.333 98.8 Output Total 700 Balance 360 -570.667 98.8 Weight 101.605 kg Intake: Intake, IV Titration 129.333 98.8 Amount Heparin Sod,Pork in 0.45% 129.333 98.8 NaCl 25,000 unit In 0.45 % NaCl 1 250ml.bag @ 9. 842 UNITS/KG/HR 10 mls/hr IV .Q24H [facility] Rx#: [id number] Oral 360 Output: Urine 700 Other: # Voids 1 - Exam General: [non toxic], [no distress], [appears at stated age] Derm: [warm], [dry] Head: [atraumatic], [normocephalic], [symmetric] Eyes: [EOMI], [no lid lag], [anicteric sclera] Mouth: [no lip lesion], [mucus membranes moist] Cardiovascular: [S1S2 reg], [no murmur], [positive posterior tibial pulse bilateral], Lungs: [Decreased breath sounds bilateral], [no rhonchi, no rales] , [no accessory muscle use] Abdominal: [soft], [ nontender to palpation], [no guarding], [no appreciable organomegaly] Ext: [no gross muscle atrophy], [1+ pitting lower extremity bilateral edema], [no contractures] Neuro: [no focal neuro deficits] Psych: [Alert], [oriented], [appropriate affect] - Labs CBC & Chem 7: 12/05/19 12:27 12/06/19 08:06 Labs: Abnormal Lab Results - Last 24 Hours (Table) 12/05/19 12/05/19 12/05/19 Range/Units 14:38 15:31 17:10 Creatinine (0.66-1.25) mg/dL Glucose (74-99) mg/dL POC Glucose (mg/dL) 312 H 281 H (75-99) mg/dL Hemoglobin A1c (4.0-6.0) % Troponin I 0.789 H* (0.000-0.034) ng/mL Cholesterol (<200) mg/dL LDL Cholesterol, Calc (0-99) mg/dL HDL Cholesterol (40-60) mg/dL 12/05/19 12/05/19 12/06/19 Range/Units 17:47 20:42 00:22 Creatinine (0.66-1.25) mg/dL Glucose (74-99) mg/dL POC Glucose (mg/dL) 225 H (75-99) mg/dL Hemoglobin A1c 10.8 H (4.0-6.0) % Troponin I 0.706 H* (0.000-0.034) ng/mL Cholesterol (<200) mg/dL LDL Cholesterol, Calc (0-99) mg/dL HDL Cholesterol (40-60) mg/dL 12/06/19 12/06/19 12/06/19 Range/Units 00:22 06:16 08:06 Creatinine 0.59 L (0.66-1.25) mg/dL Glucose 185 H (74-99) mg/dL POC Glucose (mg/dL) 147 H (75-99) mg/dL Hemoglobin A1c (4.0-6.0) % Troponin I (0.000-0.034) ng/mL Cholesterol 223 H (<200) mg/dL LDL Cholesterol, Calc 163 H (0-99) mg/dL HDL Cholesterol 32 L (40-60) mg/dL 12/06/19 Range/Units 11:37 Creatinine (0.66-1.25) mg/dL Glucose (74-99) mg/dL POC Glucose (mg/dL) 244 H (75-99) mg/dL Hemoglobin A1c (4.0-6.0) % Troponin I (0.000-0.034) ng/mL Cholesterol (<200) mg/dL LDL Cholesterol, Calc (0-99) mg/dL HDL Cholesterol (40-60) mg/dL Assessment and Plan Assessment: Non-ST elevation [place] Hypertensive urgency, improving Systolic CHF exacerbation, improving Hyperglycemia with new diagnosis of DM Dyslipidemia Left upper quadrant mass Elevated d-dimer Patient is troponins elevated at 0.777, 0.789, 0.706 with EKG showing sinus tachycardia with first-degree AV block and T-wave inversions. Elevated troponins possibly related to ACS versus viral cardiomyopathy. Plans: Continue on heparin drip. Telemetry monitoring. Continue aspirin, Lipitor and metoprolol. Follow-up echocardiogram. Follow-up cardiology consultation, plans for cardiac cath tomorrow. BP 144/104, 181/113 on admission. Given hydralazine IV, labetalol IV and nitroglycerin drip in the ED. Plans: Continue Coreg. Continue lisinopril. Monitor vitals, adjust medications if necessary. CTA chest showing pulmonary edema. Prelim echo read shows depressed EF. Plans: Continue Lasix 40 mg IV twice a day. Strict intake and output. Daily weights. Cardiac diet. Waiting on official echo read. Follow cardiology consultation. Lactic acid 3.1. Plans: Encourage hydration by mouth. Repeat until negative. Blood glucose 244. A1c 10.8. Plans: Insulin sliding scale. Regular Accu-Cheks. Hypoglycemic precautions. Follow Dietitian and elementary educator. Lipid panel shows total cholesterol 223, LDL 163, HDL 32. Plans: Continue Lipitor. As seen on CTA chest. Plans: Obtain MRA abdomen with contrast. Follow Vascular surgery recommendations. CT chest ruled out PE. Plans: Continue to monitor. DVT prophylaxis: [Heparin drip] Discussed with: [Patient and father] Anticipated discharge: [2-3 days] Anticipated discharge place: [Home] A total of [45] minutes was spent on the care of this complex patient more than 50% of the time was spent in counseling and care coordination. Patient has no PCP. He names his father decision maker if he cant make decisions for himself. Patient elected to be full code.
[2019-12-06] MEDS: HEPARIN SOD,PORK IN 0.45% NACL 25,000 UNIT in 0.45% NACL 1 250ML.BAG IV SCH (15:16)
[2019-12-06 16:36] LABS: Glucose,Whole Blood 201 mg/dL (75-99)
[2019-12-06 20:17] LABS: Glucose,Whole Blood 145 mg/dL (75-99)
[2019-12-07] MEDS: ASPIRIN 325 MG TAB PO ONE ×2 (06:16→06:37)
[2019-12-07] MEDS: carvediloL 6.25 MG TAB PO SCH ×2 (06:16→17:11)
[2019-12-07] MEDS: ATORVASTATIN 80 MG TAB PO ONE ×2 (06:16→06:37)
[2019-12-07 06:20] LABS: Glucose,Whole Blood 187 mg/dL (75-99)
[2019-12-07] MEDS: HEPARIN SOD,PORK IN 0.45% NACL 25,000 UNIT in 0.45% NACL 1 250ML.BAG IV SCH (06:37)
[2019-12-07] MEDS: INSULIN ASPART (NovoLOG) 100 UNIT/ML VIAL SQ SCH ×4 (06:46→23:11)
[2019-12-07 07:45] LABS: Basophils # (A) 0.1 k/uL (0-0.2); Basophils % (A) 1 %; Eosinophils # (A) 0.3 k/uL (0-0.7); Eosinophils % (A) 3 %; HGB 14.4 gm/dL (13.0-17.5); Hypochromasia Slight; Lymphocytes # (A) 2.4 k/uL (1.0-4.8); Lymphocytes % (A) 26 %; MCH 29.7 pg (25.0-35.0); MCHC 32.1 g/dL (31.0-37.0); MCV 92.7 fL (80.0-100.0); Mean Platelet Volume 10.7; Monocytes # (A) 0.5 k/uL (0-1.0); Monocytes % (A) 5 %; Neutrophils % (A) 64 %; Platelet Count 252 k/uL (150-450); RBC 4.85 m/uL (4.30-5.90); RDW 14.8 % (11.5-15.5); WBC 9.4 k/uL (3.8-10.6)
[2019-12-07 07:46] LABS: African American GFR (CKD) >90 (>60 ml/min/1.73 sqM); Anion Gap 7 mmol/L; Blood Urea Nitrogen 14 mg/dL (9-20); Calcium 8.5 mg/dL (8.4-10.2); Carbon Dioxide 23 mmol/L (22-30); Chloride 108 mmol/L (98-107); Glucose 176 mg/dL (74-99); Non-African American GFR(CKD) >90 (>60 ml/min/1.73 sqM); Potassium 4.1 mmol/L (3.5-5.1); Sodium 138 mmol/L (137-145)
[2019-12-07] MEDS: lisinopriL 10 MG TAB PO SCH (09:00)
[2019-12-07] MEDS: FUROSEMIDE 10 MG/ML 4 ML VIAL IV SCH ×2 (09:00→21:15)
[2019-12-07] MEDS: ASPIRIN 81 MG PO SCH (09:00)
--- NOTE | 2019-12-07 11:12 | P.PN ---
Subjective Progress Note Date: 12/07/19 Principal diagnosis: Possible Splenic infarct 49-year-old male with no significant past medical history, has never seen a PCP presents to the ED for shortness of breath. Patient reports 2 weeks ago having flulike symptoms characterized by rhinorrhea, nasal congestion, dry cough and myalgias. He was tested for coronavirus at that time and states he was negative. He reports shortness of breath that has been ongoing for the past 2 days. Shortness of breath is worsened with exertion. He also reports orthopnea over the last 2 days, sleeps on one pillow at night. He reports lower extremity swelling as well. These constellation of symptoms prompted patient to come to the ED. He denies any headache, nausea or vomiting, fever or chills, chest pain, palpitations, changes in urination or bowel habits. No changes in appetite or weight. He denies any dizziness, numbness/weakness/tingling of the extremities. In the ED, he was in hypertensive urgency with BP of 181/113 with pulse of 116. Blood pressures have stabilized. The patient denies any current chest pain, shortness of breath, abdominal pain, or back pain. He had no acute changes through the night, afebrile through the night. He is scheduled for a cardiac cath today. Objective - Vital Signs Vital signs: Vital Signs Temp 98.1 F 12/07/19 04:00 Pulse 87 12/07/19 04:00 Resp 18 12/07/19 04:00 BP 120/66 12/07/19 04:00 Pulse Ox 94 L 12/07/19 04:00 Intake & Output 12/06/19 12/07/19 12/07/19 18:59 06:59 18:59 Intake Total 120.667 249.227 Output Total 400 Balance 120.667 -150.773 Weight 98.1 kg Intake: Intake, IV Titration 120.667 249.227 Amount Heparin Sod,Pork in 0.45% 120.667 249.227 NaCl 25,000 unit In 0.45 % NaCl 1 250ml.bag @ 9. 842 UNITS/KG/HR 10 mls/hr IV .Q24H HERNANDEZ Rx#: [id number] Output: Urine 400 Other: # Voids 1 1 - Exam General appearance: The patient is alert, oriented, in no acute distress. HET: Head is normocephalic and atraumatic. Pupils are equal and reactive. Oropharynx is clear without lesions. Neck: Supple without lymphadenopathy. Trachea midline. Heart: S1 S2. Regular rate and rhythm. Lungs: Diminished, even, unlabored. Abdomen: Soft, nontender, nondistended with bowel sounds. No peritoneal signs. No palpable organomegaly or masses. Extremities: Normal skin color and turgor. No cyanosis, rash, ulceration, clubbing, or edema. Radial and pedal pulses are 2/4 bilaterally. Neurological: No focal deficits. Strength and sensation are grossly intact. - Labs CBC & Chem 7: 12/07/19 03:45 12/07/19 03:45 Labs: Abnormal Lab Results - Last 24 Hours (Table) 12/06/19 12/06/19 12/06/19 Range/Units 00:22 08:06 11:37 APTT (22.0-30.0) sec Chloride (98-107) mmol/L Creatinine 0.59 L (0.66-1.25) mg/dL Glucose 185 H (74-99) mg/dL POC Glucose (mg/dL) 244 H (75-99) mg/dL Hemoglobin A1c 10.8 H (4.0-6.0) % 12/06/19 12/06/19 12/06/19 Range/Units 16:34 18:16 20:16 APTT 35.9 H (22.0-30.0) sec Chloride (98-107) mmol/L Creatinine (0.66-1.25) mg/dL Glucose (74-99) mg/dL POC Glucose (mg/dL) 201 H 145 H (75-99) mg/dL Hemoglobin A1c (4.0-6.0) % 12/07/19 12/07/19 12/07/19 Range/Units 03:45 03:45 06:19 APTT 38.1 H (22.0-30.0) sec Chloride 108 H (98-107) mmol/L Creatinine (0.66-1.25) mg/dL Glucose 176 H (74-99) mg/dL POC Glucose (mg/dL) 187 H (75-99) mg/dL Hemoglobin A1c (4.0-6.0) % Assessment and Plan Assessment: 1. Possible splenic infarct as seen on CT angiogram of chest 2. Non-ST elevation [place] 3. Hypertensive urgency 4. Systolic CHF exacerbation 5. Soft tissue mass left upper quadrant as seen on CT angiogram 6. Elevated d-dimer Plan: Dr. Johnston reviewed the CT angiogram. At this time would recommend cardiology to continue full workup. Agree with anticoagulation. MRI and MRA of the abdomen and pelvis ordered. There is no indication for any acute vascular surgical intervention at this time. Will follow with you closely. Further saman mmendations to follow. The impression and plan of care has been dictated as directed. Dr. Johnston I performed a history and examination of this patient, discussed the same with the dictator. I agree with the dictator's note ,documented as a scribe. Any additional findings or plans will be noted.
[2019-12-07 11:47] LABS: Glucose,Whole Blood 169 mg/dL (75-99)
[2019-12-07] MEDS ORDERED: LIDOCAINE 1% INJ 10MG/ML (20 ML MDV) ONE (14:13)
[2019-12-07] MEDS ORDERED: VERAPAMIL 2.5 MG/ML 2 ML AMP ONE (14:13)
[2019-12-07] MEDS ORDERED: IV FLUID CONTINUATION 1,000 ML IV ONE (14:15)
[2019-12-07] MEDS ORDERED: fentaNYL (PF) 50 MCG/ML 2 ML AMP ONE (14:39)
[2019-12-07] MEDS ORDERED: fentaNYL (PF) 50 MCG/ML 2 ML AMP IV ONE (14:44)
[2019-12-07] MEDS ORDERED: MIDAZOLAM 2 MG/2 ML VIAL IV ONE (14:44)
[2019-12-07] MEDS ORDERED: LIDOCAINE 1% INJ 10MG/ML (20 ML MDV) SQ ONE (14:44)
[2019-12-07] MEDS ORDERED: HEPARIN SODIUM 1,000 UN/ML (10ML VL) ONE (14:46)
[2019-12-07] MEDS: VERAPAMIL SYRINGE (5 MG/10 ML) INTRAARTER ONE ×2 (14:48→15:20)
[2019-12-07] MEDS: HEPARIN SODIUM 1,000 UN/ML (10ML VL) IV ONE ×2 (14:50→15:07)
[2019-12-07] MEDS ORDERED: IOPAMIDOL-370 125ML BTL INJ ONE (15:15)
[2019-12-07] MEDS ORDERED: IOPAMIDOL-370 100ML BTL INJ ONE (15:20)
[2019-12-07] MEDS ORDERED: RX INFO: IV CONTRAST WAS GIVEN 1 EACH MISC MISCELLANE PRN (15:27)
--- NOTE | 2019-12-07 15:28 | MR ---
MRI abdomen without and with contrast HISTORY: Left upper quadrant mass Multiplanar multisequence and postcontrast images obtained through the abdomen following [address] IV Correlation to CT 12/05/2019 There is artifact which may limit the exam. Bilateral pleural effusions and associated compressive atelectasis present. Low dense focus seen with in the spleen on CT shows some T2 bright signal and T1 bright signal on MRI. Lesion measures approxim ately 4.2 cm in AP dimension. There is some suggestion of progressive stippled enhancement. Small sof t tissue foci immediately anterior to the spleen may represent splenosis. The previous identified soft tissue mass in the left upper quadrant likely represented bowel loops, t he lesion does not persist on MRI. Adrenal glands, kidneys, pancreas, liver, gallbladder are within normal limits. There is no ascites o r retroperitoneal adenopathy. IMPRESSION: Bilateral pleural effusions and associated atelectasis. No evident mass present in the le ft upper quadrant correlate with CT findings. There is evidence of splenosis. Abnormality within the spleen could be related to hemangioma, nuclear medicine tagged red blood cell study would be confirma tory. Consider remote trauma.
--- NOTE | 2019-12-07 16:02 | P.CARDCATH ---
Date of Procedure: 12/07/19 Description of Procedure: PROCEDURES PERFORMED: Left heart catheterization bilateral coronary angiography INDICATION: Non-STEMI HISTORY: Patient is a pleasant 49-year-old male with history of hyperlipidemia who presents with shortness breath. Patient admits to new onset of lower extremity edema and dyspnea on exertion over the last preceding few days. He was found to have new onset diabetes mellitus and on non-STEMI with mildly elevated troponins at approximately 0.7. Additionally he was found to have cardiomyopathy with ejection fraction 30-35% with inferior and inferolateral hypokinesis. He denies any chest pain or pressure and his only symptoms have been dyspnea on exertion. He was therefore scheduled for heart catheterization. CONSENT:I have discussed the risks, benefits and alternative therapies for the above-mentioned procedure and for both sedation/analgesia as well as necessary b lood product administration, if indicated, as they pertain to this patient. The patient has indicated understanding and acceptance of the risks and procedures discussed. PROCEDURE: After the risks, benefits and alternatives of the above mentioned procedure explained in detail with the patient, informed consent was obtained. Patient was taken to the catheterization lab and prepped and draped in usual fashion. 1% lidocaine was used to anesthetize the right radial artery. A 6- Uzbek sheath was placed in the right radial artery using modified Seldinger technique. Left coronary angiography was performed with a 5-Uzbek JL 3.5 catheter and right coronary angiography was performed with a 5-Uzbek JR5 catheter in various views. The 5-Uzbek JR 5 catheter was inserted into the left ventricle and pressure measurements were obtained. The proximal LAD was intermediate and therefore the decision was made to perform iFR to further assess. Heparin was given. A CLS 3.5 guide was used to engage the left main. A 0.014 iFR pressure guidewire was introduced in the left main and normalized. The guidewire was then advanced 1-2 cm distal to the proximal LAD lesion and iFR reading was obtained at 0.85. The decision was made to then end the procedure. The right radial sheath was removed and a TR band was placed with hemostasis achieved. The patient tolerated the procedure well. Patient was transported back to the post catheterization holding area in stable condition. Conscious Sedation: Patient was monitored under the direct supervision of vision of myself for conscious sedation using 2 mg Versed and 50 mcg fentanyl for a total duration of 40 minutes HEMODYNAMICS: Aortic: 112/72 Left ventricle: 108/8, LVEDP 25mmHg SELECTIVE CORONARY ARTERIOGRAPHY: LEFT MAIN: The left main is a large caliber vessel which trifurcates into the LAD, a moderate caliber ramus and circumflex. There is no significant stenosis. LEFT ANTERIOR DESCENDING CORONARY ARTERY: LAD is a large caliber vessel which wraps around to the apex. There is tortuosity of the proximal LAD with a 50-60% tubular stenosis. iFR of the proximal LAD was 0.85. There is mild to moderate disease of the mid and distal LAD up to 30-40%. There are [id number] collaterals to the PLV and distal PDA. RAMUS INTERMEDIUS: There is a moderate caliber ramus, almost appearing to be a high diagonal 1 branch which has a mid 70% stenosis. LEFT CIRCUMFLEX CORONARY ARTERY: Left circumflex is a moderate caliber vessel with subtotal 100% occlusion in THAIS 2 flow. RIGHT CORONARY ARTERY: The right coronary artery is a large caliber vessel which gives off a PDA and PLV branch and is the dominant vessel. There is a mid RCA 90% stenosis. The PLV appears to have a 100% stenosis at its origin with a small tapered nub. The origin PDA has a 90% stenosis followed by tandem 70% and 80% stenosis with THAIS 1 flow. FINAL IMPRESSION: 1. Multi vessel coronary artery disease as described above including 50-60% proximal LAD (iFR 0.85), 70% mid ramus, 100% circumflex, 90% RCA, 100% PLV and tandem 90 and 80% PDA stenoses. 2. Ischemic cardiomyopathy ejection fraction 30-35% by echo 3. Elevated left-sided pressures 4. Non-STEMI PLAN: 1. Aggressive risk factor modification per most recent ACC/AHA guidelines. 2. Given patient is a diabetic with multivessel coronary artery disease and iFR of LAD being positive, we will have cardiothoracic surgery evaluate patient for possible bypass. If patient is not a good bypass candidate, we'll consider multivessel PCI.
[2019-12-07 16:33] LABS: Glucose,Whole Blood 143 mg/dL (75-99)
--- NOTE | 2019-12-07 16:41 | P.PN ---
Subjective Progress Note Date: 12/07/19 Patient was seen and examined. No acute events overnight. Patient was seen after cardiac cath. Multivessel disease requiring cardiothoracic evaluation. Patient states that he feels overwhelmed. Lower extremity swelling has improved. He denies any chest pain, shortness of breath or palpitations. No nausea or vomiting. No fever or chills. Objective - Vital Signs Vital signs: Vital Signs Temp 98.1 F 12/07/19 12:00 Pulse 83 12/07/19 12:00 Resp 17 12/07/19 12:00 BP 134/101 12/07/19 12:00 Pulse Ox 97 12/07/19 12:00 Intake & Output 12/06/19 12/07/19 12/07/19 18:59 06:59 18:59 Intake Total 120.667 249.227 Output Total 400 Balance 120.667 -150.773 Weight 98.1 kg Intake: Intake, IV Titration 120.667 249.227 Amount Heparin Sod,Pork in 0.45% 120.667 249.227 NaCl 25,000 unit In 0.45 % NaCl 1 250ml.bag @ 9. 842 UNITS/KG/HR 10 mls/hr IV .Q24H HERNANDEZ Rx#: [id number] Output: Urine 400 Other: # Voids 1 1 - Exam General: [non toxic], [no distress], [appears at stated age] Derm: [warm], [dry] Head: [atraumatic], [normocephalic], [symmetric] Eyes: [EOMI], [no lid lag], [anicteric sclera] Mouth: [no lip lesion], [mucus membranes moist] Cardiovascular: [S1S2 reg], [no murmur], [positive posterior tibial pulse bilateral], Lungs: [Decreased breath sounds bilateral], [no rhonchi, no rales] , [no accessory muscle use] Abdominal: [soft], [ nontender to palpation], [no guarding], [no appreciable organomegaly] Ext: [no gross muscle atrophy], [no edema], [no contractures] Neuro: [no focal neuro deficits] Psych: [Alert], [oriented], [appropriate affect] - Labs CBC & Chem 7: 12/07/19 03:45 10/07/20 03:45 Labs: Abnormal Lab Results - Last 24 Hours (Table) 12/06/19 12/06/19 12/06/19 Range/Units 00:22 16:34 18:16 APTT 35.9 H (22.0-30.0) sec Chloride (98-107) mmol/L Glucose (74-99) mg/dL POC Glucose (mg/dL) 201 H (75-99) mg/dL Hemoglobin A1c 10.8 H (4.0-6.0) % 12/06/19 12/07/19 12/07/19 Range/Units 20:16 03:45 03:45 APTT 38.1 H (22.0-30.0) sec Chloride 108 H (98-107) mmol/L Glucose 176 H (74-99) mg/dL POC Glucose (mg/dL) 145 H (75-99) mg/dL Hemoglobin A1c (4.0-6.0) % 12/07/19 12/07/19 Range/Units 06:19 11:45 APTT (22.0-30.0) sec Chloride (98-107) mmol/L Glucose (74-99) mg/dL POC Glucose (mg/dL) 187 H 169 H (75-99) mg/dL Hemoglobin A1c (4.0-6.0) % Assessment and Plan Assessment: Non-ST elevation [place] Hypertensive urgency, improving Systolic CHF exacerbation, improving Hyperglycemia with new diagnosis of DM Dyslipidemia Left upper quadrant mass Elevated d-dimer Patient is troponins elevated at 0.777, 0.789, 0.706 with EKG showing sinus tachycardia with first-degree AV block and T-wave inversions. Elevated troponins possibly related to ACS versus viral cardiomyopathy. Echocardiogram shows EF 30-35% grade 1 diastolic dysfunction with hypokinetic wall motion. Cardiac cath shows multivessel disease. Plans: Continue on heparin drip. Telemetry monitoring. Continue aspirin, Lipitor and metoprolol. Follow-up cardiology consultation. Follow CT surgery consult. BP 134/101, 181/113 on admission. Given hydralazine IV, labetalol IV and nitroglycerin drip in the ED. Plans: Continue Coreg. Continue lisinopril. Monitor vitals, adjust medications if necessary. CTA chest showing pulmonary edema. Prelim echo read shows depressed EF. Echocardiogram as above. Plans: Continue Lasix 40 mg IV twice a day. Strict intake and output. Daily weights. Cardiac diet. Continue HIRA inhibitor. Continue beta david. Follow cardiology consultation. Blood glucose 169. A1c 10.8. Plans: Insulin sliding scale. Regular Accu-Cheks. Hypoglycemic precautions. Follow Dietitian and pantry goods maker. Lipid panel shows total cholesterol 223, LDL 163, HDL 32. Plans: Continue Lipitor. As seen on CTA chest. Plans: Obtain MRI and MRA abdomen with contrast. Follow Vascular surgery recommendations. CT chest ruled out PE. Plans: Continue to monitor. DVT prophylaxis: [Heparin drip] Discussed with: [Patient and father] Anticipated discharge: [2-3 days] Anticipated discharge place: [Home] A total of [45] minutes was spent on the care of this complex patient more than 50% of the time was spent in counseling and care coordination. Patient has no PCP. He names his father decision maker if he cant make decisions for himself. Patient elected to be full code.
[2019-12-07 18:27] LABS: INR 1.1 (<1.2); Partial Thromboplastin Time 50.9 sec (22.0-30.0); Prothrombin Time 11.2 sec (9.0-12.0)
[2019-12-07 18:39] LABS: ALT 15 U/L (4-49); AST 24 U/L (17-59); African American GFR (CKD) >90 (>60 ml/min/1.73 sqM); Albumin 3.6 g/dL (3.5-5.0); Alkaline Phosphatase 91 U/L (38-126); Anion Gap 8 mmol/L; Blood Urea Nitrogen 11 mg/dL (9-20); Calcium 8.9 mg/dL (8.4-10.2); Carbon Dioxide 22 mmol/L (22-30); Chloride 110 mmol/L (98-107); Glucose 191 mg/dL (74-99); Magnesium 1.7 mg/dL (1.6-2.3); Non-African American GFR(CKD) >90 (>60 ml/min/1.73 sqM); Potassium 3.8 mmol/L (3.5-5.1); Sodium 140 mmol/L (137-145); Total Protein 6.6 g/dL (6.3-8.2)
[2019-12-07 20:24] LABS: Glucose,Whole Blood 245 mg/dL (75-99)
[2019-12-07 21:14] LABS: Appearance,Urine Clear (Clear); Bilirubin,Urine Negative (Negative); Blood,Urine Negative (Negative); Color,Urine Yellow; Glucose,Urine (UA) Trace (Negative); Ketones,Urine 2+ (Negative); Leukocyte Esterase,Urine Negative (Negative); Mucus,Urine Rare /hpf; Nitrite,Urine Negative (Negative); PH, Urine 6.5 (5.0-8.0); Protein,Urine 1+ (Negative); RBC,Urine 2 /hpf (0-5); WBC,Urine 1 /hpf (0-5)
[2019-12-07 21:15] LABS: Specific Gravity,Urine >1.050 (1.001-1.035)
[2019-12-07 23:03] LABS: Glucose,Whole Blood 222 mg/dL (75-99)
[2019-12-07] MEDS: MUPIROCIN 2% OINT 22 GM TUBE NASAL SCH (23:13)
--- NOTE | 2019-12-08 02:24 | US ---
EXAMINATION TYPE: US carotid duplex BILAT DATE OF EXAM: 12/08/2019 COMPARISON: NONE CLINICAL HISTORY: Pre-Op Cardiac Surgery. Pre op cardiac surgery. Hypertension, hyperlipidemia, diabe clara. EXAM MEASUREMENTS: RIGHT: Peak Systolic Velocity (PSV) cm/sec ----- Right CCA: 71.0 ----- Right ICA: 77.6 ----- Right ECA: 68.3 ICA/CCA ratio: 1.1 RIGHT: End Diastole cm/sec ----- Right CCA: 20.4 ----- Right ICA: 16.0 ----- Right ECA: 13.3 LEFT: Peak Systolic Velocity (PSV) cm/sec ----- Left CCA: 70.1 ----- Left ICA: 69.9 ----- Left ECA: 79.8 ICA/CCA ratio: 1.0 LEFT: End Diastole cm/sec ----- Left CCA: 17.2 ----- Left ICA: 16.0 ----- Left ECA: 11.7 VERTEBRALS (direction of flow): Right Vertebral: Antegrade Left Vertebral: Antegrade Rhythm: Normal Intimal thickening bilaterally. Minimal plaque seen right carotid bifurcation. No elevated velocities at this time. IMPRESSION: There is antegrade flow in the vertebral arteries. The images and measurements suggest less than 20% stenosis in both internal carotid arteries. Criteria for Assigning % of Stenosis / Diameter reduction (Estimation based on the indirect measurements of the internal carotid artery velocities (ICA PSV). 1. Normal (no stenosis)=ICA PSV < 125 cm/s: ratio < 2.0: ICA EDV<40 cm/s. 2. Less than 50% stenosis=ICA PSV < 125 cm/s: ratio < 2.0: ICA EDV<40 cm/s. 3. 50 to 69% stenosis=ICA PSV of 125 to 230 cm/s: ration 2.0 ? 4.0: ICA EDV 40-100 cm/s. 4. Greater than 70% stenosis to near occlusion= ICA PSV > 230 cm/s: ratio > 4.0: ICA EDV > 100 cm/s. 5. Near occlusion= ICA PSV velocities may be low or undetectable: variable ratio and ICA EDV. 6. Total occlusion=unable to detect flow.
[2019-12-08 05:24] LABS: Hepatitis A Antibody IgM Non-Reactive (Non-Reactive); Hepatitis B Core IgM Non-Reactive (Non-Reactive); Hepatitis B Surface Antigen Non-Reactive (Non-Reactive); Hepatitis C IgG Antibody Non-Reactive (Non-Reactive)
[2019-12-08 06:16] LABS: Glucose,Whole Blood 172 mg/dL (75-99)
--- NOTE | 2019-12-08 06:44 | MR ---
EXAMINATION TYPE: MR angio abdomen wo/w con DATE OF EXAM: 12/07/2019 COMPARISON: Same day MR abdomen images HISTORY: LUQ mass, evaluate splenic vasculature CONTRAST: Standard multiplanar, multisequence MRI departmental protocol utilizing 10 mL intravenous Gadavist ga dolinium contrast. 2-D and 3-D reconstructed images created on a independent workstation and reviewe d. FINDINGS: Aorta: The aorta is visualized through the bifurcation shows patent celiac artery, SMA, and bilateral single renal arteries without significant stenosis. Smaller branch vessels including splenic artery not well identified on this study as MRA imaging has Limited [id number]. There appears to be tortu liang but nonenlarged splenic artery originating from the celiac trunk. No obvious stenosis. Patent dr bowers splenic vein noted. Other:Tiny bilateral pleural effusions. There is overall geographic heterogeneity in the spleen corre sponding to areas of diminished perfusion. No suspicious bowel dilatation. Visualized osseous structu res are intact. The liver, gallbladder, both adrenal glands, both kidneys, and pancreas are felt with in normal limits. IMPRESSION: As above.
[2019-12-08] MEDS: INSULIN ASPART (NovoLOG) 100 UNIT/ML VIAL SQ SCH ×3 (07:04→17:54)
[2019-12-08] MEDS: carvediloL 6.25 MG TAB PO SCH (07:04)
[2019-12-08] MEDS: ASPIRIN 81 MG PO SCH (09:24)
[2019-12-08] MEDS: lisinopriL 10 MG TAB PO SCH (09:24)
[2019-12-08] MEDS: FUROSEMIDE 10 MG/ML 4 ML VIAL IV SCH (09:24)
[2019-12-08] MEDS: MUPIROCIN 2% OINT 22 GM TUBE NASAL SCH (09:27)
[2019-12-08 09:31] VITALS: RESP 17
--- NOTE | 2019-12-08 11:02 | P.GSCN ---
History of Present Illness Consult date: 12/08/19 Reason for Consult: Multivessel coronary artery disease Requesting physician: Flaco Kern History of present illness: This is a 49-year-old active gentleman who does not follow on an outpatient basis with any primary care physicians. Prior to his admission here he had no significant previous medical history, surgical history, social history, and was on no medications although he does have a family history of premature coronary artery disease with his father having had CABG in his 40s. He presented to [facility] emergency room with complaints of shortness of breath over the previous 2 weeks. Apparently he had what he described as a cold or possible flu a couple of weeks ago, there was concern for Covid, however his Covid test was negative. His shortness of breath continued to get progressively worse and he was unable to lie flat. He also noticed lower extremity edema. He denies any chest pain, fevers, chills, cough, or palpitations. He presented to urgent care where chest x-ray was completed and he was recommended to report to the emergency room. Chest x-ray in the emergency room demonstrated heart failure. EKG demonstrated sinus tach with heart rate 114. CTA of the chest was completed without evidence of pulmonary embolism, findings of congestive heart failure, as well as a soft tissue mass in the left upper quadrant measuring 7.8 x 5.9 cm. WBC 13.4, creatinine 0.2, lactic acid 3.1, BNP 2290, troponin 0.777. He was afebrile and oxygenating well on room air, however he was noted to be hypertensive with blood pressure 181/113 with a mean pressure 135. Transthoracic echocardiogram was completed demonstrating moderate to severely impaired left ventricular systolic function with ejection fraction 30-35%, grade 1 diastolic dysfunction, hypokinetic LV wall motion, trace mitral regurgitation and trace tricuspid regurgitation without pulmonary hypertension. He was adm itted for evaluation and treatment with consultation placed for cardiology. Of note, due to the suspected soft tissue mass found on CTA vascular surgery was consulted, abdominal MRI was completed reporting no mass present in the left upper quadrant, evidence of splenosis, abnormality within the spleen which could be related to hemangioma. Abdominal MRA was also completed demonstrating tiny bilateral pleural effusions, overall geographic heterogeneity in the spleen corresponding to areas of diminished perfusion. Per vascular report there is no indication for acute vascular surgical intervention. The patient was seen by cardiology and was recommended to undergo heart catheterization which was completed yesterday and which demonstrated proximal LAD stenosis 50-60%, iFR 0.85, mid ramus stenosis 70%, circumflex stenosis 100%, RCA stenosis 90%, PLV 100% stenosis, and 2 lesions in the PDA, one 90% and one 80%. Due to these findings consultation is placed to Dr. Hylton from cardiothoracic surgery for surgical revascularization recommendations. Review of Systems Review of systems was completed and was negative except as noted - Cardiovascular Reports as per HPI, Reports orthopnea - Respiratory Reports as per HPI, Reports dyspnea Past Medical History Past Medical History: Coronary Artery Disease (CAD), Heart Failure, Diabetes Mellitus, Hyperlipidemia, Hypertension, Myocardial Infarction ([place]) Additional Past Medical History / Comment(s): Sinus infections/allergies History of Any Multi-Drug Resistant Organisms: None Reported Past Surgical History: Heart Catheterization Past Anesthesia/Blood Transfusion Reactions: Unable to Obtain Additional Past Anesthesia/Blood Transfusion Reaction / Comm: Pt has never had anesthesia Past Psychological History: No Psychological Hx Reported Smoking Status: Never smoker Past Alcohol Use History: None Reported Past Drug Use History: None Reported - Past Family History Father Family Medical History: Coronary Artery Disease (CAD), Hyperlipidemia Additional Family Medical History / Comment(s): Father had CABG in his 40s Mother Family Medical History: Neurologic Disorder Additional Family Medical History / Comment(s): Mother of progressive neuropalsy Medications and Allergies Home Medications Medication Instructions Recorded Confirmed Type Fexofenadine HCl [Dottie Allergy] 180 mg PO DAILY PRN 12/05/19 12/05/19 History Allergies Allergy/AdvReac Type Severity Reaction Status Date / Time No Known Allergies Allergy Verified 12/05/19 14:05 Surgical - Exam Vital Signs Temp Pulse Resp BP Pulse Ox 98.7 F 116 H 18 181/113 98 12/05/19 11:44 12/05/19 11:44 12/05/19 11:44 12/05/19 11:44 12/05/19 11:44 - General well developed, well nourished, no distress, no pain, obese - Eyes PERRL, normal ocular movement - ENT normal pinna, normal nares, normal mucosa, no hearing loss - Neck no masses, no bruits, trachea midline - Respiratory Lungs sounds diminished bilaterally in the bases. Respirations even, nonlabored. Currently on room air with oxygen saturation 93%. No chest wall deformities. No clubbing or cyanosis present. - Cardiovascular S1, S2 present. Regular rate and rhythm, sinus rhythm on telemetry. Palpable peripheral pulses bilaterally. 1-2+ bilateral lower extremity edema present. No calf pain or tenderness noted. - Abdomen Abdomen: soft, non tender, bowel sounds - Genitourinary Deferred - Rectum Deferred - Integumentary no rash, no growths, no abnormal pigmentation - Neurologic normal coordination, normal sensation - Musculoskeletal normal gait, normal posture - Psychiatric oriented to time, oriented to person, oriented to place, speech is normal, memory intact Results - Labs 12/07/19 03:45 12/07/19 17:58 Abnormal Lab Results - Last 24 Hours (Table) 12/07/19 12/07/19 12/07/19 Range/Units 11:45 16:33 17:58 APTT 50.9 H (22.0-30.0) sec Chloride (98-107) mmol/L Creatinine (0.66-1.25) mg/dL Glucose (74-99) mg/dL POC Glucose (mg/dL) 169 H 143 H (75-99) mg/dL Ur Specific [place] (1.001-1.035) Urine Protein (Negative) Urine Glucose (UA) (Negative) Urine Ketones (Negative) Urine Mucus (None) /hpf 12/07/19 12/07/19 12/07/19 Range/Units 17:58 19:46 20:23 APTT (22.0-30.0) sec Chloride 110 H (98-107) mmol/L Creatinine 0.55 L (0.66-1.25) mg/dL Glucose 191 H (74-99) mg/dL POC Glucose (mg/dL) 245 H (75-99) mg/dL Ur Specific [place] >1.050 H (1.001-1.035) Urine Protein 1+ H (Negative) Urine Glucose (UA) Trace H (Negative) Urine Ketones 2+ H (Negative) Urine Mucus Rare H (None) /hpf 12/07/19 12/07/19 12/08/19 Range/Units 22:21 23:02 06:14 APTT 46.6 H (22.0-30.0) sec Chloride (98-107) mmol/L Creatinine (0.66-1.25) mg/dL Glucose (74-99) mg/dL POC Glucose (mg/dL) 222 H 172 H (75-99) mg/dL Ur Specific [place] (1.001-1.035) Urine Protein (Negative) Urine Glucose (UA) (Negative) Urine Ketones (Negative) Urine Mucus (None) /hpf Microbiology - Last 24 Hours (Table) 12/07/19 17:50 Nasal Screen MRSA/MSSA - Preliminary Nasal Swab Diabetes panel 12/07/19 Range/Units 17:58 Sodium 140 (137-145) mmol/L Potassium 3.8 (3.5-5.1) mmol/L Chloride 110 H (98-107) mmol/L Carbon Dioxide 22 (22-30) mmol/L BUN 11 (9-20) mg/dL Creatinine 0.55 L (0.66-1.25) mg/dL Glucose 191 H (74-99) mg/dL Calcium 8.9 (8.4-10.2) mg/dL AST 24 (17-59) U/L ALT 15 (4-49) U/L Alkaline Phosphatase 91 (38-126) U/L Total Protein 6.6 (6.3-8.2) g/dL Albumin 3.6 (3.5-5.0) g/dL Thyroid panel 12/07/19 Range/Units 17:58 TSH 1.620 (0.465-4.680) mIU/L Calcium panel 12/07/19 Range/Units 17:58 Calcium 8.9 (8.4-10.2) mg/dL Albumin 3.6 (3.5-5.0) g/dL Pituitary panel 12/07/19 Range/Units 17:58 Sodium 140 (137-145) mmol/L Potassium 3.8 (3.5-5.1) mmol/L Chloride 110 H (98-107) mmol/L Carbon Dioxide 22 (22-30) mmol/L BUN 11 (9-20) mg/dL Creatinine 0.55 L (0.66-1.25) mg/dL Glucose 191 H (74-99) mg/dL Calcium 8.9 (8.4-10.2) mg/dL TSH 1.620 (0.465-4.680) mIU/L Adrenal panel 12/07/19 Range/Units 17:58 Sodium 140 (137-145) mmol/L Potassium 3.8 (3.5-5.1) mmol/L Chloride 110 H (98-107) mmol/L Carbon Dioxide 22 (22-30) mmol/L BUN 11 (9-20) mg/dL Creatinine 0.55 L (0.66-1.25) mg/dL Glucose 191 H (74-99) mg/dL Calcium 8.9 (8.4-10.2) mg/dL Total Bilirubin 1.0 (0.2-1.3) mg/dL AST 24 (17-59) U/L ALT 15 (4-49) U/L Alkaline Phosphatase 91 (38-126) U/L Total Protein 6.6 (6.3-8.2) g/dL Albumin 3.6 (3.5-5.0) g/dL - Imaging Chest x-ray: report reviewed, image reviewed CT scan - chest: report reviewed, image reviewed EKG: image reviewed Additional studies: Heart catheterization films were reviewed with Dr. Hylton Assessment and Plan Assessment: 1. Multivessel coronary artery disease, non-STEMI this admission 2. Acute systolic heart failure, EF 30-35% 3. Hypertension 4. Hyperlipidemia, cholesterol 223, LDL 163 5. Type 2 diabetes mellitus, hemoglobin A1c 10.8% 6. Morbid obesity 7. Severe restrictive lung disease with preoperative FEV1 45% of predicted 8. Family history of premature coronary artery disease Plan: The patient was seen and examined at the bedside. Chart/diagnostics were reviewed with Dr. Hylton who will see the patient in consultation today. The usual perioperative course of coronary artery bypass surgery was discussed in detail with the patient, all risks and benefits were reviewed, calculated STS risk score was discussed with the patient, and all questions were answered. Preoperative testing has been completed. We'll complete 5 m walk test. Recommend maximizing medical therapy with continued aspirin, statin, beta david, heart failure management. Increase activity, ambulate as tolerated. Medical management of other comorbidities per primary care service. More recommendations to follow once Dr. Hylton has seen the patient. Thank you Dr. Kern for this consult, we look forward to working with you in the care of your patient Time with Patient: Greater than 30
[2019-12-08 11:05] VITALS: BMI 32.5
[2019-12-08 11:41] VITALS: PULSE 76
[2019-12-08 12:07] LABS: Glucose,Whole Blood 247 mg/dL (75-99)
--- NOTE | 2019-12-08 12:26 | P.PN ---
Subjective Progress Note Date: 12/08/19 Principal diagnosis: Possible Splenic infarct The patient was seen and examined at the bedside. He denies any current chest pain or shortness of breath. He denies any abdominal pain or back pain. He underwent an MRI of the abdomen with and without contrast which showed bilateral pleural effusions and associated atelectasis. No evident mass present in the left upper quadrant correlate with CT findings. There is evidence of splenosis. Abnormality within the spleen could be related to hemangioma, nuclear medicine tag red blood cell study would be confirmatory. Consider remote trauma. There was also an MR angiogram of the abdomen completed which showed torturous but non-enlarged splenic artery originating from the celiac trunk. No obvious stenosis. Patent draining splenic vein noted. there was an overall geographic heterogeneity in the spleen corresponding to areas of diminished perfusion. No suspicious bowel dilation. Visualized osseous structures are intact. The liver gallbladder both adrenal glands both kidneys and pancreas are felt within normal limits. The patient denies any current chest pain, shortness of breath, abdominal pain, or back pain. He had no acute changes through the night, afebrile through the night. The patient was seen by cardiology and was recommended to undergo heart catheterization which was completed yesterday and which demonstrated proximal LAD stenosis 50-60%, iFR 0.85, mid ramus stenosis 70%, circumflex stenosis 100%, RCA stenosis 90%, PLV 100% stenosis, and 2 lesions in the PDA, one 90% and one 80%. Due to these findings consultation is placed to Dr. Hylton from cardiothoracic surgery for surgical revascularization recommendations. Objective - Vital Signs Vital signs: Vital Signs Temp 98.1 F 12/08/19 04:00 Pulse 78 12/08/19 04:00 Resp 18 12/08/19 04:00 BP 117/70 12/08/19 04:00 Pulse Ox 93 L 12/08/19 04:00 Intake & Output 12/07/19 12/08/19 12/08/19 18:59 06:59 18:59 Intake Total 490.401 Balance 490.401 Weight 98.1 kg 97.2 kg Intake: IV 100 Intake, IV Titration 168.401 Amount Heparin Sod,Pork in 0.45% 168.401 NaCl 25,000 unit In 0.45 % NaCl 1 250ml.bag @ 9. 842 UNITS/KG/HR 10 mls/hr IV .Q24H [facility] Rx#: [id number] Oral 222 Other: # Voids 3 - Exam General appearance: The patient is alert, oriented, in no acute distress. HET: Head is normocephalic and atraumatic. Pupils are equal and reactive. Oropharynx is clear without lesions. Neck: Supple without lymphadenopathy. Trachea midline. Heart: S1 S2. Regular rate and rhythm. Lungs: Diminished, even, unlabored. Abdomen: Soft, nontender, nondistended with bowel sounds. No peritoneal signs. No palpable organomegaly or masses. Extremities: Normal skin color and turgor. No cyanosis, rash, ulceration, clubbing, or edema. Radial and pedal pulses are 2/4 bilaterally. Neurological: No focal deficits. Strength and sensation are grossly intact. - Labs CBC & Chem 7: 12/07/19 03:45 12/07/19 17:58 Labs: Abnormal Lab Results - Last 24 Hours (Table) 12/07/19 12/07/19 12/07/19 Range/Units 11:45 16:33 17:58 APTT 50.9 H (22.0-30.0) sec Chloride (98-107) mmol/L Creatinine (0.66-1.25) mg/dL Glucose (74-99) mg/dL POC Glucose (mg/dL) 169 H 143 H (75-99) mg/dL Ur Specific [place] (1.001-1.035) Urine Protein (Negative) Urine Glucose (UA) (Negative) Urine Ketones (Negative) Urine Mucus (None) /hpf 12/07/19 12/07/19 12/07/19 Range/Units 17:58 19:46 20:23 APTT (22.0-30.0) sec Chloride 110 H (98-107) mmol/L Creatinine 0.55 L (0.66-1.25) mg/dL Glucose 191 H (74-99) mg/dL POC Glucose (mg/dL) 245 H (75-99) mg/dL Ur Specific [place] >1.050 H (1.001-1.035) Urine Protein 1+ H (Negative) Urine Glucose (UA) Trace H (Negative) Urine Ketones 2+ H (Negative) Urine Mucus Rare H (None) /hpf 12/07/19 12/07/19 12/08/19 Range/Units 22:21 23:02 06:14 APTT 46.6 H (22.0-30.0) sec Chloride (98-107) mmol/L Creatinine (0.66-1.25) mg/dL Glucose (74-99) mg/dL POC Glucose (mg/dL) 222 H 172 H (75-99) mg/dL Ur Specific [place] (1.001-1.035) Urine Protein (Negative) Urine Glucose (UA) (Negative) Urine Ketones (Negative) Urine Mucus (None) /hpf Microbiology - Last 24 Hours (Table) 12/07/19 17:50 Nasal Screen MRSA/MSSA - Preliminary Nasal Swab Assessment and Plan Assessment: 1. Possible splenic infarct as seen on CT angiogram of chest, MRI/MRA of abdomen completed showing possible remote trauma or hemangioma 2. Non-ST elevation VT, multivessel coronary artery disease 3. Hypertensive urgency 4. Systolic CHF exacerbation 5. Soft tissue mass left upper quadrant as seen on CT angiogram not seen on MRI of abdomen 6. Severe restrictive lung disease Plan: Dr. Johnston reviewed MRI/MRA of abdomen and discussed with the patient. There is no indication for any vascular surgical intervention at this time. Continue with recommendations from cardiology and cardiothoracic surgery. We will sign off at this time. Patient does not need outpatient follow up with our service. The impression and plan of care has been dictated as directed. Dr. Johnston I performed a history and examination of this patient, discussed the same with the dictator. I agree with the dictator's note ,documented as a scribe. Any additional findings or plans will be noted.
--- NOTE | 2019-12-08 14:51 | P.PN ---
<Danita Lino Liam - Last Filed: 12/08/19 14:47> Subjective Progress Note Date: 12/08/19 CHIEF COMPLAINT: elevated troponin HISTORY OF PRESENT ILLNESS: Patient underwent cardiac catheterization yesterday revealing multivessel coronary artery disease including 50-60% proximal LAD (iFR 0.85), 70% mid ramus, 100% circumflex, 90% RCA, 100% PLV and tandem 90 and 80% PDA stenoses. Patient examined this morning at the bedside. He denies chest pain. Shortness of breath is improving. Vital signs are stable. Echocardiogram revealed ejection fraction 30-35%. PHYSICAL EXAM: VITAL SIGNS: Reviewed. GENERAL: Well-developed in no acute distress. HEENT: Head is normocephalic. Pupils are equal, round. Sclerae anicteric. Mucous membranes of the mouth are moist. Neck supple. No JVD or thyromegaly LUNGS: Respirations even and unlabored. Lungs diminished. HEART: Regular rate and rhythm. S1 and S2 heard. ABDOMEN: Soft. Nondistended. Nontender. EXTREMITIES: Normal range of motion. No clubbing or cyanosis. Peripheral pulses intact. Trace bilateral lower extremity edema NEUROLOGIC: Awake and alert. Oriented x 3. ASSESSMENT: NSTEMI Triple vessel coronary artery disease Ischemic cardiomyopathy, EF 30-35% Acute heart failure, systolic, BNP 2290 Hypertension Hyperlipidemia Diabetes mellitus, type II, Hemoglobin A1c 10.8% Family history of premature coronary artery disease Obesity: BMI 34.1 PLAN: Continue current cardiac medications Await evaluation by cardiothoracic surgery for possible bypass Nurse practitioner note has been reviewed by physician. Signing provider agrees with the documented findings, assessment, and plan of care. Objective - Vital Signs Vital signs: Vital Signs Temp 98.3 F 12/08/19 11:36 Pulse 76 12/08/19 11:36 Resp 17 12/08/19 11:41 BP 132/97 12/08/19 11:36 Pulse Ox 96 12/08/19 11:36 Intake & Output 12/07/19 12/08/19 12/08/19 18:59 06:59 18:59 Intake Total 490.401 461 Balance 490.401 461 Weight 98.1 kg 97.2 kg 97.2 kg Intake: IV 100 Intake, IV Titration 168.401 Amount Heparin Sod,Pork in 0.45% 168.401 NaCl 25,000 unit In 0.45 % NaCl 1 250ml.bag @ 9. 842 UNITS/KG/HR 10 mls/hr IV .Q24H [facility] Rx#: [id number] Oral 222 461 Other: # Voids 3 1 - Labs CBC & Chem 7: 12/07/19 03:45 12/07/19 17:58 Labs: Abnormal Lab Results - Last 24 Hours (Table) 12/07/19 12/07/19 12/07/19 Range/Units 16:33 17:58 17:58 APTT 50.9 H (22.0-30.0) sec Chloride 110 H (98-107) mmol/L Creatinine 0.55 L (0.66-1.25) mg/dL Glucose 191 H (74-99) mg/dL POC Glucose (mg/dL) 143 H (75-99) mg/dL Ur Specific [place] (1.001-1.035) Urine Protein (Negative) Urine Glucose (UA) (Negative) Urine Ketones (Negative) Urine Mucus (None) /hpf 12/07/19 12/07/19 12/07/19 Range/Units 19:46 20:23 22:21 APTT 46.6 H (22.0-30.0) sec Chloride (98-107) mmol/L Creatinine (0.66-1.25) mg/dL Glucose (74-99) mg/dL POC Glucose (mg/dL) 245 H (75-99) mg/dL Ur Specific [place] >1.050 H (1.001-1.035) Urine Protein 1+ H (Negative) Urine Glucose (UA) Trace H (Negative) Urine Ketones 2+ H (Negative) Urine Mucus Rare H (None) /hpf 12/07/19 12/08/19 12/08/19 Range/Units 23:02 06:14 12:04 APTT (22.0-30.0) sec Chloride (98-107) mmol/L Creatinine (0.66-1.25) mg/dL Glucose (74-99) mg/dL POC Glucose (mg/dL) 222 H 172 H 247 H (75-99) mg/dL Ur Specific [place] (1.001-1.035) Urine Protein (Negative) Urine Glucose (UA) (Negative) Urine Ketones (Negative) Urine Mucus (None) /hpf Microbiology - Last 24 Hours (Table) 12/07/19 17:50 Nasal Screen MRSA/MSSA - Preliminary Nasal Swab <Flaco Kern - Last Filed: 12/08/19 16:13> Objective - Vital Signs Vital signs: Vital Signs Temp 97.8 F 12/08/19 16:00 Pulse 76 12/08/19 16:00 Resp 17 12/08/19 16:00 BP 136/93 12/08/19 16:00 Pulse Ox 98 12/08/19 16:00 Intake & Output 12/07/19 12/08/19 12/08/19 18:59 06:59 18:59 Intake Total 490.401 461 Balance 490.401 461 Weight 98.1 kg 97.2 kg 97.2 kg Intake: IV 100 Intake, IV Titration 168.401 Amount Heparin Sod,Pork in 0.45% 168.401 NaCl 25,000 unit In 0.45 % NaCl 1 250ml.bag @ 9. 842 UNITS/KG/HR 10 mls/hr IV .Q24H [facility] Rx#: [id number] Oral 222 [id number] Other: # Voids 3 1 - Labs CBC & Chem 7: 12/07/19 03:45 12/07/19 17:58 Labs: Abnormal Lab Results - Last 24 Hours (Table) 12/07/19 12/07/19 12/07/19 Range/Units 16:33 17:58 17:58 APTT 50.9 H (22.0-30.0) sec Chloride 110 H (98-107) mmol/L Creatinine 0.55 L (0.66-1.25) mg/dL Glucose 191 H (74-99) mg/dL POC Glucose (mg/dL) 143 H (75-99) mg/dL Ur Specific [place] (1.001-1.035) Urine Protein (Negative) Urine Glucose (UA) (Negative) Urine Ketones (Negative) Urine Mucus (None) /hpf 12/07/19 12/07/19 12/07/19 Range/Units 19:46 20:23 22:21 APTT 46.6 H (22.0-30.0) sec Chloride (98-107) mmol/L Creatinine (0.66-1.25) mg/dL Glucose (74-99) mg/dL POC Glucose (mg/dL) 245 H (75-99) mg/dL Ur Specific [place] >1.050 H (1.001-1.035) Urine Protein 1+ H (Negative) Urine Glucose (UA) Trace H (Negative) Urine Ketones 2+ H (Negative) Urine Mucus Rare H (None) /hpf 12/07/19 12/08/19 12/08/19 Range/Units 23:02 06:14 12:04 APTT (22.0-30.0) sec Chloride (98-107) mmol/L Creatinine (0.66-1.25) mg/dL Glucose (74-99) mg/dL POC Glucose (mg/dL) 222 H 172 H 247 H (75-99) mg/dL Ur Specific [place] (1.001-1.035) Urine Protein (Negative) Urine Glucose (UA) (Negative) Urine Ketones (Negative) Urine Mucus (None) /hpf Microbiology - Last 24 Hours (Table) 12/07/19 17:50 Nasal Screen MRSA/MSSA - Preliminary Nasal Swab
[2019-12-08 16:11] VITALS: BP 136/93; TEMP 97.8
[2019-12-08] MEDS: HEPARIN SOD,PORK IN 0.45% NACL 25,000 UNIT in 0.45% NACL 1 250ML.BAG IV SCH (16:21)
--- NOTE | 2019-12-08 16:48 | P.DS ---
Providers Date of admission: 12/05/19 14:11 Expected date of discharge: 12/08/19 Attending physician: Sammy Swenson MD Consults: 12/05/19 14:11 Consult Physician Urgent Consulting Provider: [facility] Consult Reason/Comments: N STEMI Do you want consulting provider notified?: Already Contacted 12/06/19 10:12 Consult Physician Stat Consulting Provider: Cecilia Johnston Consult Reason/Comments: possible splenic infarct Do you want consulting provider notified?: Yes 12/07/19 15:26 Consult Physician Routine Consulting Provider: Ad Hwang Consult Reason/Comments: re: CABG Do you want consulting provider notified?: Already Contacted Primary care physician: Stated None Hospital Course: 49-year-old male with no significant past medical history, has never seen a PCP presents to the ED for shortness of breath. Patient reports 2 weeks ago having flulike symptoms characterized by rhinorrhea, nasal congestion, dry cough and myalgias. He was tested for coronavirus at that time and states he was negative. He reports shortness of breath that has been ongoing for the past 2 days. Shortness of breath is worsened with exertion. He also reports orthopnea over the last 2 days, sleeps on one pillow at night. He reports lower extremity swelling as well. These constellation of symptoms prompted patient to come to the ED. He denies any headache, nausea or vomiting, fever or chills, chest pain, palpitations, changes in urination or bowel habits. No changes in appetite or weight. He denies any dizziness, numbness/weakness/tingling of the extremities. In the ED, he was in hypertensive urgency with BP of 181/113 with pulse of 116. CBC showed WBC count of 13.4. D-dimer was elevated at 0.72. CMP showed bicarb of 19, BUN 7, creatinine 0.62, glucose 325. Lactic acid was elevated at 3.1. Troponin was 0.777, 0.789, EKG showing sinus tachycardia with first-degree AV block and T-wave inversions. BNP was 2290, chest x-ray showing congestive heart failure. CTA chest showed no PE, congestive heart failure with pulmonary edema, soft tissue mass left upper quadrant 7.8 x 5.9 cm, recommending CT contrast-enhanced of the abdomen and pelvis. Patient is admitted for hypertensive urgency, non-ST elevation NM and CHF exacerbation with cardiology in consultation. Troponins were elevated at 0.777, 0.789, 0.706 with EKG showing sinus ta chycardia with first-degree AV block and T-wave inversions. He was started on ASA, Lipitor and Plavix. Echocardiogram shows EF 30-35% grade 1 diastolic dysfunction with hypokinetic wall motion. Cardiology was consulted and recommended cardiac cath. Cardiac cath showed 50-60% proximal LAD (iFR 0.85), 70% mid ramus, 100% circumflex, 90% RCA, 100% PLV and tandem 90 and 80% PDA stenoses. Cardiothoracic surgery was consulted and recommended optimization of his blood sugars prior to CABG which could be arranged in the outpatient setting. Patient was started on Coreg and lisinopril for better management of his blood pressure. He was also diuresed with Lasix IV for pulmonary edema that was seen on CTA chest. His breathing and lower extremity swelling considerably improved during his hospitalization. Patient had an A1c of 10.8 which is managed with insulin sliding scale in house. He was discharged on Levemir and NovoLog for better optimization of his blood sugars (Levemir 10 units QHS and Novolog 3 units TID with meals). Lipid panel that showed total cholesterol 223, LDL 163 and HDL of 32 for which she was started on Lipitor. There was question of left upper quadrant mass seen on CTA of the chest. Vascular surgery was consulted and recommended MRI and MRA of the abdomen with contrast. MRI showed no evident mass present in the left upper quadrant, splenosis. Patient was seen and examined. No acute events overnight. Patient denies any chest pain, shortness breath or palpitations. No nausea or vomiting. No fever or chills. General: [non toxic], [no distress], [appears at stated age] Derm: [warm], [dry] Head: [atraumatic], [normocephalic], [symmetric] Eyes: [EOMI], [no lid lag], [anicteric sclera] Mouth: [no lip lesion], [mucus membranes moist] Cardiovascular: [S1S2 reg], [no murmur], [positive posterior tibial pulse bilateral], Lungs: [Decreased breath sounds bilateral], [no rhonchi, no rales] , [no accessory muscle use] Abdominal: [soft], [ nontender to palpation], [no guarding], [no appreciable organomegaly] Ext: [no gross muscle atrophy], [1+ pitting lower extremity edema], [no contractures] Neuro: [no focal neuro deficits] Psych: [Alert], [oriented], [appropriate affect] Non-ST elevation NM Hypertensive urgency, improving Systolic CHF exacerbation, improving Hyperglycemia with new diagnosis of DM Dyslipidemia Left upper quadrant mass Elevated d-dimer Patient is troponins elevated at 0.777, 0.789, 0.706 with EKG showing sinus tachycardia with first-degree AV block and T-wave inversions. Elevated troponins possibly related to ACS versus viral cardiomyopathy. Echocardiogram shows EF 30-35% grade 1 diastolic dysfunction with hypokinetic wall motion. Cardiac cath shows multivessel disease. Plans: Continue aspirin, Lipitor, Plavix and metoprolol. FU CT Sx on 12/15 and Cardiology within 1 week. PCP appointment on 12/08. BP 136/93, 181/113 on admission. Given hydralazine IV, labetalol IV and nitroglycerin drip in the ED. Plans: Continue Coreg. Continue lisinopril. Monitor vitals, adjust medications if necessary. CTA chest showing pulmonary edema. Prelim echo read shows depressed EF. Echocardiogram as above. Plans: Continue Lasix 40 mg PO BID. Strict intake and output. Daily weights. Cardiac diet. Continue HIRA inhibitor. Continue beta david. Follow cardiology consultation. Blood glucose 169. A1c 10.8. Plans: Levemir 10 units QHS and Novolog 3 units TID with meals until follow up with PCP. Regular Accu-Cheks. Hypoglycemic precautions. Follow Dietitian and ict educator. Lipid panel shows total cholesterol 223, LDL 163, HDL 32. Plans: Continue Lipitor. As seen on CTA chest. MRI and MRA does show splenosis with no obvious mass. Plans: Follow PCP for further workup. CT chest ruled out PE. Plans: Continue to monitor. DVT prophylaxis: [Heparin drip] Discussed with: [Patient and father] Anticipated discharge: [2-3 days] Anticipated discharge place: [Home] A total of [45] minutes was spent on the care of this complex patient more than 50% of the time was spent in counseling and care coordination. Patient has no PCP. He names his father decision maker if he cant make decisions for himself. Patient elected to be full code. This complex DC took about 45 minutes to complete. Pertinent Studies: chest x-ray, chest CTA, MRI abdomen, MRA abdomen, echocardiogram Procedures: cardiac cath Patient Condition at Discharge: Stable Plan - Discharge Summary Discharge Rx Participant: No New Discharge Prescriptions: New Alcohol Antiseptic Pads [Alcohol Swabs] 1 each TP AC-TID #120 med..pad Aspirin 81 mg PO DAILY #30 chew [place], Insulin Disposable [Bd Ultra-Fine Pen Needle 4mm 32g] 1 needle SQ DIRECTED #120 needle carvediloL [Coreg] 6.25 mg PO BID-W/MEALS #60 tab Lancets 1 each MC AC-TID #120 each Furosemide [Lasix] 40 mg PO BID #60 tablet Insulin Detemir [Levemir Flextouch] 10 units SQ HS #3 pen Atorvastatin [Lipitor] 40 mg PO HS #30 tab Nitroglycerin Sl Tabs [Nitrostat] 0.4 mg SUBLINGUAL Q5M PRN #30 tab PRN Reason: Chest Pain Insulin Aspart [NovoLOG Flexpen] 3 units SQ AC-TID #3 pen Blood Sugar Diagnostic [Test Strips] 1 each MC AC-TID #120 strip lisinopriL [Zestril] 10 mg PO DAILY #30 tab Clopidogrel [Plavix] 75 mg PO DAILY #30 tablet Discontinued Fexofenadine HCl [Dottie Allergy] 180 mg PO DAILY PRN PRN Reason: seasonal allergies Discharge Medication List Alcohol Antiseptic Pads [Alcohol Swabs] 1 each TP AC-TID #120 med..pad 12/08/19 [Rx] Aspirin 81 mg PO DAILY #30 chew 12/08/19 [Rx] Atorvastatin [Lipitor] 40 mg PO HS #30 tab 12/08/19 [Rx] Blood Sugar Diagnostic [Test Strips] 1 each MC AC-TID #120 strip 12/08/19 [Rx] Clopidogrel [Plavix] 75 mg PO DAILY #30 tablet 12/08/19 [Rx] Furosemide [Lasix] 40 mg PO BID #60 tablet 12/08/19 [Rx] Insulin Aspart [NovoLOG Flexpen] 3 units SQ AC-TID #3 pen 12/08/19 [Rx] Insulin Detemir [Levemir Flextouch] 10 units SQ HS #3 pen 12/08/19 [Rx] Lancets 1 each MC AC-TID #120 each 12/08/19 [Rx] [place], Insulin Disposable [Bd Ultra-Fine Pen Needle 4mm 32g] 1 needle SQ DIRECTED #120 needle 12/08/19 [Rx] Nitroglycerin Sl Tabs [Nitrostat] 0.4 mg SUBLINGUAL Q5M PRN #30 tab 12/08/19 [Rx] carvediloL [Coreg] 6.25 mg PO BID-W/MEALS #60 tab 12/08/19 [Rx] lisinopriL [Zestril] 10 mg PO DAILY #30 tab 12/08/19 [Rx] Follow up Appointment(s)/Referral(s): Brandon Hylton MD [STAFF PHYSICIAN] - 12/16/19 10:00 am Flaco Kern DO [STAFF PHYSICIAN] - 1 Week (Office will call you with an appointment. ) [facility], [NON-STAFF] - Samir Ryan MD [STAFF PHYSICIAN] - 12/09/19 2:30 pm (Please bring insurance card and photo ID with to appointment. ) Activity/Diet/Wound Care/Special Instructions: diet: Diabetic, cardiac Follow-up PCP within 2 days of discharge. Follow-up with cardiology within 1 week of discharge. Follow-up with cardiothoracic surgery within 1 week of discharge. take Medications as advised. Please do not exert your self. call ED or call 911 for worsening chest pain, shortness breath, palpitations or dizziness. Discharge Disposition: HOME SELF-CARE
[2019-12-08] MEDS ORDERED: INSULIN ASPART (NovoLOG) 100 UNIT/ML VIAL SQ SCH ×2 (17:30)
[2019-12-08] MEDS ORDERED: INSULIN DETEMIR (LEVEMIR) 100 UNIT/ML SYR SQ SCH ×2 (21:00)
== END 2019-12-08 19:08 | disposition home or self-care (01) | DRG 280 ==
LOC: EC 11:40 → 3SCARD 14:11
PROVIDERS: ADMIT Family Medicine; ATTEND Family Medicine
PROC: B2111ZZ Fluoroscopy of Multiple Coronary Arteries using Low Osmolar Contrast (ICD-10-PCS; principal; 2019-12-07 13:30)
PROC: 4A023N7 Measurement of Cardiac Sampling and Pressure, Left Heart, Percutaneous Approach (ICD-10-PCS; principal; 2019-12-07 13:30)
DX: I21.4 Non-ST elevation (NSTEMI) myocardial infarction (principal); I50.23 Acute on chronic systolic (congestive) heart failure; E87.2 Acidosis; J98.11 Atelectasis; I25.5 Ischemic cardiomyopathy; I16.0 Hypertensive urgency; I11.0 Hypertensive heart disease with heart failure; I25.10 Atherosclerotic heart disease of native coronary artery without angina pectoris; I44.0 Atrioventricular block, first degree; R19.02 Left upper quadrant abdominal swelling, mass and lump; Z20.828 Contact with and (suspected) exposure to other viral communicable diseases; E78.5 Hyperlipidemia, unspecified; E66.01 Morbid (severe) obesity due to excess calories; E11.65 Type 2 diabetes mellitus with hyperglycemia; Z82.49 Family history of ischemic heart disease and other diseases of the circulatory system; Z83.438 Family history of other disorder of lipoprotein metabolism and other lipidemia; Z81.8 Family history of other mental and behavioral disorders; Z68.34 Body mass index [BMI] 34.0-34.9, adult; Z79.4 Long term (current) use of insulin; Z79.899 Other long term (current) drug therapy
CPT/HCPCS: 36415; 71046; 71275; 74183; 74185; 80048; 80053; 80061; 80074; 81001; 83036; 83605; 83735; 83880; 84443; 84484; 85025; 85379; 85610; 85730; 87070; 92978; 93005; 93306; 93458; 93880; 93922; 93970; 94150; 96365; 96366; 96375; 99291

== ENCOUNTER → 2019-12-29 | Outpatient (CLI) | payer BC ==
[2019-12-29 12:55] LABS: HCT 48.4 % (39.0-53.0); MCH 30.3 pg (25.0-35.0); MCV 91.9 fL (80.0-100.0); Mean Platelet Volume 10.2; Platelet Count 231 k/uL (150-450); RBC 5.27 m/uL (4.30-5.90); RDW 13.5 % (11.5-15.5); WBC 9.6 k/uL (3.8-10.6)
[2019-12-29 12:59] LABS: INR 1.1 (<1.2); Partial Thromboplastin Time 25.8 sec (22.0-30.0); Prothrombin Time 10.9 sec (9.0-12.0)
[2019-12-29 13:00] LABS: ALT 26 U/L (4-49); AST 27 U/L (17-59); African American GFR (CKD) >90 (>60 ml/min/1.73 sqM); Albumin 4.4 g/dL (3.5-5.0); Alkaline Phosphatase 84 U/L (38-126); Anion Gap 10 mmol/L; Blood Urea Nitrogen 15 mg/dL (9-20); Calcium 9.7 mg/dL (8.4-10.2); Carbon Dioxide 26 mmol/L (22-30); Chloride 105 mmol/L (98-107); Glucose 157 mg/dL (74-99); Non-African American GFR(CKD) >90 (>60 ml/min/1.73 sqM); Potassium 4.3 mmol/L (3.5-5.1); Sodium 141 mmol/L (137-145); Total Bilirubin 0.9 mg/dL (0.2-1.3); Total Protein 7.6 g/dL (6.3-8.2)
--- NOTE | 2020-01-04 13:23 | P.ARTDOP ---
Arterial Doppler Bilateral radial artery studies: Date of study: 12/29/2019 Reasons for study: Preop CABG Doppler assessment shows no right to left or segmental pressure gradient. Digital plethysmography with radial artery compression shows no significant pressure change. Imaging reveals the right radial to be 2.4 x 2.5 proximally, 2.8 x 2.5 mm mid, and 2.7 x 2.6 mm distally. The left is 2.9 x 2.6 mm proximally, 2.5 x 2.3 mm mid, and 2.7 x 2.4 mm distally. Usable bilateral radial arteries by criterion.
== END | disposition home or self-care (01) ==
LOC: LABPAT 09:02
PROVIDERS: ATTEND Surgery
DX: I25.10 Atherosclerotic heart disease of native coronary artery without angina pectoris (principal); Z79.01 Long term (current) use of anticoagulants; Z79.899 Other long term (current) drug therapy
CPT/HCPCS: 80053; 85027; 85610; 85730; 93930; 93922; 36415; U0003; C9803

== ENCOUNTER 2020-01-04 05:49 | Inpatient (IN) | payer BC ==
[~2020-01-04 05:49] MED LIST: ALBUMIN HUMAN 25% 50 ML IV ONE; ALBUMIN HUMAN 5% 500 ML IVPB ONE; ASPIRIN 325 MG TAB PO ONE; CALCIUM CHLORIDE 100 MG/ML 10 ML SYRINGE IV ONE; CHLORHEXIDINE GLUCONATE 15 ML CUP MUCOUS MEM ONE; CLEVIDIPINE BUTYRATE 25 MG in EMPTY BAG 1 BAG IV ONE; DEXTROSE 5% IN WATER 1,000 ML with POTASSIUM CHLORIDE 110 MEQ, MAGNESIUM SULFATE 16 MEQ... IV ONE; DEXTROSE 5% IN WATER 1,000 ML with POTASSIUM CHLORIDE 25 MEQ, SODIUM CHLORIDE 2.5MEQ/ML... IRRIGATION ONE; DILTIAZEM 125 MG in SODIUM CHLORIDE 0.9% 100 ML IV ONE; HEPARIN SODIUM 1,000 UN/ML (10ML VL) IV ONE; HEPARIN SODIUM,PORCINE 5,000 UNIT in SODIUM CHLORIDE 0.9% 500 ML 500 ML IV ONE; INSULIN REGULAR 100 UNIT in SODIUM CHLORIDE 0.9% 100 ML IV ONE; MAGNESIUM SULFATE MG 500 MG/ML IV ONE; MANNITOL 25% 12.5 GM/50 ML VIAL IV ONE; NITROGLYCERIN-D5W PMX 25 MG/250 ML BTL IV ONE; NITROGLYCERIN-D5W PMX 50 MG in DEXTROSE/WATER 1 250ML.BAG IV ONE; NOREPINEPHRINE 4 MG in SODIUM CHLORIDE 0.9% 250 ML IV ONE; PAPAVERINE 360 MG in SODIUM CHLORIDE 0.9% 90 ML IV ONE; PHENYLEPHRINE 10 MG/ML VIAL IV ONE; PHENYLEPHRINE 40 MG in SODIUM CHLORIDE 0.9% 250 ML IV ONE; PROTAMINE SULFATE 10 MG/ML 25 ML VIAL IV ONE; PROTAMINE SULFATE 250 MG in EMPTY BAG 1 BAG IV ONE; SODIUM BICARB 8.4% 50 ML SYR (1 MEQ/ML) IV ONE; SODIUM CHLORIDE 0.9% 1,000 ML IV ONE; TRANEXAMIC ACID 2,000 MG in SODIUM CHLORIDE 0.9% 80 ML IV ONE; ceFAZolin 1,000 MG in SODIUM CHLORIDE 0.9% IRRIGATIO 1,000 ML IRRIGATION ONE; ceFAZolin 2,000 MG in SODIUM CHLORIDE 0.9% 30 ML IVPB ONE; propofoL 1,000 MG/100 ML VIAL IV ONE
[2020-01-04] MEDS: ATORVASTATIN 10 MG TAB PO ONE ×2 (06:25→16:40)
[2020-01-04] MEDS: METOPROLOL TARTRATE 12.5 MG TAB PO ONE ×2 (06:25→16:40)
[2020-01-04] MEDS: LACTATED RINGERS 1,000 ML IV ONE ×2 (06:38→07:00)
[2020-01-04 06:42] LABS: Glucose,Whole Blood 140 mg/dL (75-99)
[2020-01-04] MEDS ORDERED: MEROPENEM 1 GM VIAL IVPB ONE (07:40)
[2020-01-04] MEDS ORDERED: VANCOMYCIN IV PER PHARMACY 1 EACH MISC MISCELLANE STA (08:09)
[2020-01-04] MEDS ORDERED: VANCOMYCIN 1,500 MG in SODIUM CHLORIDE 0.9% 250 ML IVPB STA (08:14)
[2020-01-04 09:04] LABS: ABG Glucose Whole Blood 168 mg/dL (75-99); ABG HCO3 22 mmol/L (21-25); ABG Ionized Calcium 4.8 mg/dL (4.5-5.3); ABG Lactic Acid Whole Blood 0.7 mmol/L (0.5-1.6); ABG PCO2 34 mmHg (35-45); ABG PH 7.42 (7.35-7.45); ABG PO2 116 mmHg (83-108); ABG Potassium Whole Blood 3.5 mmol/L (3.4-4.5); ABG Sodium Whole Blood 143 mmol/L (135-146); ABG TCO2 23 mmol/L (19-24); Allen Test Performed? Yes
[2020-01-04 09:06] LABS: ABG Base Excess -1.6 mmol/L; ABG Glucose Whole Blood 165 mg/dL (75-99); ABG HCO3 22 mmol/L (21-25); ABG Hematocrit 42 % (34.0-46.0); ABG Ionized Calcium 4.7 mg/dL (4.5-5.3); ABG Lactic Acid Whole Blood 0.8 mmol/L (0.5-1.6); ABG PCO2 34 mmHg (35-45); ABG PH 7.42 (7.35-7.45); ABG PO2 122 mmHg (83-108); ABG Potassium Whole Blood 3.5 mmol/L (3.4-4.5); ABG Sodium Whole Blood 142 mmol/L (135-146); ABG TCO2 23 mmol/L (19-24)
[2020-01-04 11:14] LABS: ABG Base Excess -2.7 mmol/L; ABG Glucose Whole Blood 180 mg/dL (75-99); ABG HCO3 22 mmol/L (21-25); ABG Hematocrit 40 % (34.0-46.0); ABG Ionized Calcium 4.7 mg/dL (4.5-5.3); ABG Lactic Acid Whole Blood 0.8 mmol/L (0.5-1.6); ABG PCO2 35 mmHg (35-45); ABG PO2 262 mmHg (83-108); ABG Potassium Whole Blood 3.7 mmol/L (3.4-4.5); ABG Sodium Whole Blood 142 mmol/L (135-146); ABG TCO2 23 mmol/L (19-24)
[2020-01-04 11:55] LABS: ABG Base Excess -2.9 mmol/L; ABG Glucose Whole Blood 172 mg/dL (75-99); ABG HCO3 22 mmol/L (21-25); ABG Hematocrit 39 % (34.0-46.0); ABG Ionized Calcium 4.6 mg/dL (4.5-5.3); ABG Lactic Acid Whole Blood 0.8 mmol/L (0.5-1.6); ABG Oxygen Saturation 99.6 % (94-97); ABG PCO2 36 mmHg (35-45); ABG PH 7.39 (7.35-7.45); ABG PO2 178 mmHg (83-108); ABG Potassium Whole Blood 3.6 mmol/L (3.4-4.5); ABG Sodium Whole Blood 142 mmol/L (135-146); ABG TCO2 23 mmol/L (19-24)
[2020-01-04 12:15] LABS: ABG Base Excess -0.3 mmol/L; ABG Glucose Whole Blood 153 mg/dL (75-99); ABG HCO3 24 mmol/L (21-25); ABG Hematocrit 32 % (34.0-46.0); ABG Ionized Calcium 4.1 mg/dL (4.5-5.3); ABG Lactic Acid Whole Blood 0.8 mmol/L (0.5-1.6); ABG PCO2 39 mmHg (35-45); ABG PH 7.41 (7.35-7.45); ABG PO2 337 mmHg (83-108); ABG Potassium Whole Blood 3.4 mmol/L (3.4-4.5); ABG Sodium Whole Blood 140 mmol/L (135-146); ABG TCO2 26 mmol/L (19-24)
[2020-01-04] MEDS ORDERED: fentaNYL (PF) 50 MCG/ML 50 ML VIAL ONE (12:22)
[2020-01-04] MEDS ORDERED: NITROGLYCERIN-D5W PMX 50 MG/250 ML BOTTLE IV ONE (12:22)
[2020-01-04] MEDS ORDERED: HEPARIN SODIUM,PORCINE 10,000 UNIT/ML 1 ML VIAL ONE (12:22)
[2020-01-04] MEDS ORDERED: fentaNYL (PF) 50 MCG/ML 2 ML AMP ONE (12:22)
[2020-01-04] MEDS ORDERED: SODIUM CHLORIDE 0.9% 250 ML BAG ONE (12:22)
[2020-01-04] MEDS ORDERED: MAGNESIUM SULFATE 4 MEQ/ML 10ML VIAL ONE (12:22)
[2020-01-04] MEDS ORDERED: SODIUM CHLORIDE 0.9% IRRIG 1,000 ML BTL IRRIGATION ONE (12:22)
[2020-01-04] MEDS ORDERED: LIDOCAINE 1% INJ 10MG/ML (20 ML MDV) ONE (12:22)
[2020-01-04] MEDS ORDERED: PROPOFOL 10 MG/ML 20 ML VIAL IV ONE (12:22)
[2020-01-04] MEDS ORDERED: ALBUMIN HUMAN 5% (25gm) 500 ML VIAL IVPB ONE (12:22)
[2020-01-04] MEDS ORDERED: TRANEXAMIC ACID 1,000 MG/10 ML VIAL ONE (12:22)
[2020-01-04] MEDS ORDERED: MIDAZOLAM 2 MG/2 ML VIAL ONE (12:22)
[2020-01-04] MEDS ORDERED: ELECTROLYTE-R (PH 7.4) 1,000 ML IV.SOLN IV ONE (12:22)
[2020-01-04] MEDS ORDERED: VECURONIUM 10 MG VIAL IV ONE (12:22)
[2020-01-04 12:54] LABS: ABG Base Excess -0.5 mmol/L; ABG Glucose Whole Blood 241 mg/dL (75-99); ABG HCO3 25 mmol/L (21-25); ABG Hematocrit 31 % (34.0-46.0); ABG Ionized Calcium 4.3 mg/dL (4.5-5.3); ABG Lactic Acid Whole Blood 0.8 mmol/L (0.5-1.6); ABG PCO2 43 mmHg (35-45); ABG PH 7.38 (7.35-7.45); ABG PO2 397 mmHg (83-108); ABG Potassium Whole Blood 4.4 mmol/L (3.4-4.5); ABG Sodium Whole Blood 139 mmol/L (135-146); ABG TCO2 26 mmol/L (19-24)
[2020-01-04 13:27] LABS: ABG Base Excess -0.8 mmol/L; ABG Glucose Whole Blood 245 mg/dL (75-99); ABG HCO3 25 mmol/L (21-25); ABG Hematocrit 31 % (34.0-46.0); ABG Ionized Calcium 4.4 mg/dL (4.5-5.3); ABG Lactic Acid Whole Blood 0.9 mmol/L (0.5-1.6); ABG PCO2 43 mmHg (35-45); ABG PH 7.37 (7.35-7.45); ABG PO2 406 mmHg (83-108); ABG Potassium Whole Blood 4.2 mmol/L (3.4-4.5); ABG Sodium Whole Blood 139 mmol/L (135-146); ABG TCO2 26 mmol/L (19-24)
[2020-01-04 13:59] LABS: ABG Glucose Whole Blood 231 mg/dL (75-99); ABG HCO3 25 mmol/L (21-25); ABG Hematocrit 31 % (34.0-46.0); ABG Ionized Calcium 4.5 mg/dL (4.5-5.3); ABG Lactic Acid Whole Blood 1.2 mmol/L (0.5-1.6); ABG Oxygen Saturation 99.9 % (94-97); ABG PCO2 45 mmHg (35-45); ABG PH 7.35 (7.35-7.45); ABG PO2 315 mmHg (83-108); ABG Potassium Whole Blood 4.1 mmol/L (3.4-4.5); ABG Sodium Whole Blood 140 mmol/L (135-146); ABG TCO2 26 mmol/L (19-24)
[2020-01-04 14:16] LABS: ABG Base Excess -1.8 mmol/L; ABG Hematocrit 42 % (34.0-46.0); ABG Oxygen Saturation 99.9 % (94-97)
[2020-01-04 14:23] LABS: ABG Base Excess -1.9 mmol/L; ABG Glucose Whole Blood 214 mg/dL (75-99); ABG HCO3 24 mmol/L (21-25); ABG Hematocrit 30 % (34.0-46.0); ABG Ionized Calcium 4.5 mg/dL (4.5-5.3); ABG Lactic Acid Whole Blood 1.6 mmol/L (0.5-1.6); ABG Oxygen Saturation 99.9 % (94-97); ABG PCO2 47 mmHg (35-45); ABG PH 7.32 (7.35-7.45); ABG PO2 347 mmHg (83-108); ABG Potassium Whole Blood 4.1 mmol/L (3.4-4.5); ABG Sodium Whole Blood 141 mmol/L (135-146); ABG TCO2 26 mmol/L (19-24)
[2020-01-04 15:07] LABS: ABG Base Excess -2.6 mmol/L; ABG Glucose Whole Blood 170 mg/dL (75-99); ABG HCO3 24 mmol/L (21-25); ABG Hematocrit 32 % (34.0-46.0); ABG Oxygen Saturation 94.7 % (94-97); ABG PCO2 47 mmHg (35-45); ABG PH 7.31 (7.35-7.45); ABG PO2 76 mmHg (83-108); ABG Potassium Whole Blood 3.4 mmol/L (3.4-4.5); ABG Sodium Whole Blood 142 mmol/L (135-146); ABG TCO2 25 mmol/L (19-24)
[2020-01-04 15:13] LABS: ABG Lactic Acid Whole Blood 2.1 mmol/L (0.5-1.6)
[2020-01-04] MEDS ORDERED: ALBUMIN HUMAN 5% 250 ML IVPB ONE (15:49)
[2020-01-04] MEDS ORDERED: IPRATROPIUM-ALBUTEROL 3 ML NEB INHALATION PRN (15:51)
[2020-01-04] MEDS ORDERED: DEXTROSE 5% IN WATER 100 ML with AMIODARONE 150 MG IV PRN (15:51)
[2020-01-04] MEDS ORDERED: hydrALAZINE HCL 20 MG/ML 1 ML VIAL IVP PRN (15:51)
[2020-01-04] MEDS ORDERED: Magnesium Replacement Protocol 1 EACH MISC MISCELLANE PRN (15:51)
[2020-01-04] MEDS ORDERED: Potassium Replacement Protocol 1 EACH MISC MISCELLANE PRN (15:51)
[2020-01-04] MEDS ORDERED: KETOROLAC 15 MG/ML 1 ML VIAL IVP PRN (15:51)
[2020-01-04] MEDS ORDERED: AMIODARONE 360 MG in DEXTROSE 5% IN WATER 200 ML IV PRN ×2 (15:51)
[2020-01-04] MEDS ORDERED: AMIODARONE 300 MG in DEXTROSE 5% IN WATER 250 ML IV PRN ×2 (15:51)
[2020-01-04] MEDS ORDERED: BENZOCAINE/MENTHOL LOZENG 1 EACH LOZENGE MUCOUS MEM PRN (15:51)
[2020-01-04] MEDS ORDERED: Phosphorus Replacement Protoco 1 EACH MISC MISCELLANE PRN (15:51)
[2020-01-04] MEDS ORDERED: MILRINONE-D5W PMX 20 MG in DEXTROSE/WATER 1 100ML.BAG IV SCH ×2 (16:00→21:30)
[2020-01-04] MEDS ORDERED: NOREPINEPHRINE 4 MG in SODIUM CHLORIDE 0.9% 250 ML IV SCH (16:00)
[2020-01-04] MEDS: CLEVIDIPINE BUTYRATE 25 MG in EMPTY BAG 1 BAG IV SCH ×2 (16:00→18:19)
[2020-01-04 16:17] LABS: Glucose,Whole Blood 126 mg/dL (75-99)
[2020-01-04] MEDS: MORPHINE SULFATE 2 MG/ML SYRINGE IVP PRN ×2 (16:21→17:40)
--- NOTE | 2020-01-04 16:23 | OP ---
OPERATIVE REPORT DATE OF THE SURGERY: 01/04/2020 SURGEON: Dr. Brandon Hylton. ACCOUNTS PAYABLE COORDINATOR: Anoop Mi and Maurisio Infante. PREOPERATIVE DIAGNOSIS: Triple-vessel coronary artery disease with a totally occluded obtuse marginal artery and right coronary artery with evidence of an old posterolateral myocardial infarction, moderate left ventricular dysfunction with ejection fraction estimated at 30%, poorly controlled diabetes, hypertension, strong family history of coronary artery disease. POSTOPERATIVE DIAGNOSIS: Triple-vessel coronary artery disease with a totally occluded obtuse marginal artery and right coronary artery with evidence of an old posterolateral myocardial infarction, moderate left ventricular dysfunction with ejection fraction estimated at 30%, poorly controlled diabetes, hypertension, strong family history of coronary artery disease. PROCEDURE: 1. Triple coronary artery bypass grafting using the left internal mammary artery to the left anterior descending artery, left radial artery from the aorta to the ramus intermedius artery, reverse saphenous vein graft from the aorta to the posterior descending artery. 2. Exclusion of the left atrial appendage using a 35 mm AtriClip. 3. Intraoperative transesophageal echocardiogram and epiaortic scanning. 4. Endoscopic harvesting of the left radial artery. 5. Endoscopic harvesting of left greater saphenous vein. 6. Intraoperative graft flow measurements using the Medi-Stim system. INDICATION FOR SURGERY: Patient is a 49-year-old gentleman with the above comorbidities, was admitted several weeks ago with a non STEMI and found to have diffuse severe coronary artery disease. Ejection fraction was estimated at 30%. He was diagnosed at that point with diabetes, which was unknown, untreated and poorly controlled. We elected to temporize around 3 weeks and at this point, brought him back for elective coronary artery bypass grafting with plans to bypass his LAD and lateral branch of his ramus intermedius artery and to look at the totally occluded obtuse marginal artery and right coronary artery system, hoping to find targets at that level. The increased STS risk was discussed with him. He understood it and agreed to proceed. DESCRIPTION OF THE PROCEDURE: Patient in supine position, the right internal jugular [place]-Mik catheter and a right radial arterial line were placed. Cardiac index was 3 and P pressure was 50/25. Subsequently, he was brought to the operating room where general endotracheal anesthesia was induced uneventfully. That brought his PA pressure down. Johnston catheter was inserted. The chest, abdomen and both lower extremity as well as the left upper extremity were prepped and draped using ChloraPrep. Ioban was used to cover the skin. The patient received 2 g of cefazolin intravenously. He also received an additional 1 g of vancomycin intravenously in view of positive nasal culture for MSSA and the fact that he has a poorly controlled insulin-dependent diabetic. Transesophageal echocardiogram confirmed the preoperative finding of moderate left ventricular dysfunction and no significant mitral valve regurgitation. Midline sternotomy was performed and bone seal was used. The left hemisternum was elevated and the left internal mammary artery was harvested in a somewhat skeletonized fashion. The left pleura was intentionally opened in this process and was drained with a 19-[place]izen [place] Gee drain. The right pleura remained grossly intact. The patient was given 5000 units of heparin. The mammary was clipped distally and transected had an excellent pulsatile flow in it and was around 2 mm in diameter. In the same setting, the left radial artery was harvested endoscopically after initially exposing it at the wrist and performing a clamping trial that revealed preserved signal in the left index O2 plethysmography probe. The forearm incision was closed over a drain. The radial artery was prepared by incising the fascia all along its volar aspect and clipping its branches. It had around 3 mm in diameter and of good quality. Also in the same setting, the left greater saphenous vein was harvested endoscopically from groin to above ankle levels. The branches were tied. The leg incisions were closed in layers. The vein was prepared and appeared to be of reasonable quality around 4 mm in diameter. Mediastinal fat was transected between 2 ties and epiaortic scanning revealed some concentric intimal thickening but no protruding atheroma in the ascending aorta. Pericardium was opened in an inverted T-fashion and a pericardial cradle was created. Findings included short soft aorta, diffuse calcific coronary artery disease and above the lateral wall, thin-walled with old fibrotic myocardial infarction changes. After systemic heparinization, after placement of respective pledgeted pursestring, aortic cannulation with a 21-[place] soft flow cannula and venous cannulation with a 3- stage 29-[place] cannula via the right atrial appendage was performed. Antegrade as well as retrograde cardioplegia catheter were placed. Cardiopulmonary bypass was initiated with the heart empty and beating we looked at the target. The LAD was diffusely diseased. It was intramyocardial in its mid aspect. We uncovered it in its mid aspect and again picked an area where it had a soft anterior wall. Looking at the ramus or high diagonal artery lateral branching, which was the site for bypass were identified in 1 spot as it was also intra myocardial. Looking at the lateral wall, it was fibrotic and that obtuse marginal artery that is totally occluded was essentially non visible and not worse by bypassing a respective. Looking at the inferior wall, the posterior descending artery was a diffusely diseased vessel. However, we picked one area that had a blue soft anterior wall spot for potential bypass. Aorta was clamped and during aortic clamping, myocardial protection was achieved. An initial dose of 800 mL of antegrade cold blood cardioplegia followed by 500 mL of retrograde cold blood cardioplegia. All subsequent doses were given retrograde as well as some antegrade after having reconstructed the proximal anastomosis of the posterior descending artery vein graft to the aortic root. The first distal anastomosis was between a segment of vein and a 1.5 mm diffusely diseased posterior descending artery in its mid aspect. I was able to pass a probe distally but not proximally after the arteriotomy. The anastomosis was completed using Prolene 7-0 in continuous fashion. The second distal anastomosis was between the left radial artery and the lateral branching of the ramus intermedius artery which was around 1 point cm in diameter, intra myocardial using Prolene 7-0 in continuous fashion. The third and last distal anastomosis were to the left internal mammary artery and the mid aspect of the left anterior descending artery which was opened was around 1.75 mm in diameter with a posterior plaque using Prolene 7-0 in continuous fashion. We made a deep groove in the left pleura pericardial fat to accommodate the mammary artery medial to the lung and away from the posterior sternal table. Satisfied with the distal anastomosis, rewarming was started as we punched out two buttons of the proximal aorta and performed the 2 proximal anastomosis of the vein graft and radial artery separately using running Prolene. The patient was given lidocaine and magnesium and de-airing maneuvers were followed before unclamping the aorta. He regained a sinus bradycardic rhythm. For that, two monopolar atrial pacing wires were affixed to the respective pursing of the right atrium and one bipolar ventricular pacing wire was driven via the inferior aspect of the right ventricle. For around 10 minutes, atrial pacing at 70 was started. Looking at the ROXIE, there was quite a bit of air in the ventricle and used an 18-gauge in the apex to decompress the air from the apex. That was not bleeding and it did not require any stitch. Preliminary graft flow measurements revealed patent grafts. With that, and after a period of reperfusion, we were able to wean off cardioplegia bypass initially with no inotropic support, then we decided to initiate a low-dose Primacor for better contractility. Cardiac index was 3. ROXIE showed improved left ventricular contraction. Graft flow measurements at this point with a 4 mm approach showed a flow of 18 mL/minute and the vein graft to the posterior descending artery with a pulsatility index of 4.1, diastolic filling of 59%, showing a good functioning graft. The flow into the radial artery to the ramus was 41 mL/minute, pulsatility index of 3, diastolic filling of 50%, showing a well-functioning graft. The flow into the BELTRAN to the LAD was 46 mL/minute, pulsatility index of 2.4, diastolic filling of 51% showing a good patent graft. With that, all pump suckers were stopped and a full dose protamine was given. Decannulation followed. Pericardial fat was approximated over the heart and the graft and the right ventricle. After ensuring adequate hemostasis, hemodynamic and after correct sponge, instrument, and needle count, the sternum was closed using 5 [id number] pineal cable after interposing fibular between the sternal edges. Thorough irrigation of cefazolin followed. The rest of the closure proceeded in layers. Skin glue was applied. Patient did not receive any blood bank product but received 570 mL of Cell Saver blood. He was transferred to the ICU in stable condition with excellent hemodynamics on low- dose Primacor and Levophed and normal EKG, atrial paced at 80. MMODL / IJN: [id number] /
--- NOTE | 2020-01-04 16:27 | XR ---
EXAMINATION TYPE: XR chest 1V portable DATE OF EXAM: 01/04/2020 COMPARISON: Prior chest x-ray dated 12/05/2019 HISTORY: Postop cardiac surgery TECHNIQUE: Single frontal view of the chest is obtained. FINDINGS: Patient is post median sternotomy and atrial appendage clipping placement. Right jugular c entral venous catheter is showing the distal tip coiled within the left pulmonary artery. Endotrachea l tube and NG tube are overlying appropriate positions, the side port of the NG tube however is withi n the distal thoracic esophagus. Left-sided chest tube is in place, there is subcutaneous emphysema. No sizable pneumothorax. No sizable effusion. Perihilar increased density, patchy basilar density is noted. Heart size is prominent. Median sternal drains are present. Patient is rotated. IMPRESSION: Pulmonary artery catheter as described. NG tube side-port within the thoracic esophagus. There may be a component of volume overload, basilar atelectasis.
[2020-01-04] MEDS ORDERED: DEXMEDETOMIDINE/0.9% NACL(PMX) 400 MCG in EMPTY BAG 1 BAG IV SCH (16:30)
[2020-01-04 16:41] LABS: ABG Base Excess -1.9 mmol/L; ABG HCO3 24 mmol/L (21-25); ABG PCO2 47 mmHg (35-45); ABG PH 7.32 (7.35-7.45); ABG PO2 178 mmHg (83-108); ABG TCO2 26 mmol/L (19-24)
--- NOTE | 2020-01-04 16:41 | XR ---
EXAMINATION TYPE: XR chest 1V portable DATE OF EXAM: 01/04/2020 COMPARISON: Prior chest x-ray 01/04/2020 and earlier time HISTORY: Status post [place]-Mik catheter repositioning TECHNIQUE: Single frontal view of the chest is obtained. FINDINGS: There is been interval repositioning of the [place]-Mik catheter which is now showing the di stal tip coursing in a caudal direction. No other significant interval change. IMPRESSION: Interval [place]-Mik catheter repositioning
[2020-01-04 16:43] LABS: Allen Test Performed? no
[2020-01-04 16:43] LABS: Basophils # (A) 0.1 k/uL (0-0.2); Basophils % (A) 1 %; Eosinophils # (A) 0.1 k/uL (0-0.7); Eosinophils % (A) 1 %; HCT 31.3 % (39.0-53.0); Lymphocytes # (A) 1.4 k/uL (1.0-4.8); Lymphocytes % (A) 12 %; MCHC 33.5 g/dL (31.0-37.0); MCV 92.3 fL (80.0-100.0); Mean Platelet Volume 10.3; Monocytes # (A) 0.2 k/uL (0-1.0); Monocytes % (A) 2 %; Neutrophils # (A) 9.6 k/uL (1.3-7.7); Neutrophils % (A) 84 %; Platelet Count 120 k/uL (150-450); RBC 3.39 m/uL (4.30-5.90); RDW 13.9 % (11.5-15.5); WBC 11.4 k/uL (3.8-10.6)
[2020-01-04 16:46] LABS: Glucose,Whole Blood 116 mg/dL (75-99)
[2020-01-04] MEDS: INSULIN REGULAR 100 UNIT in SODIUM CHLORIDE 0.9% 100 ML IV SCH (16:46)
[2020-01-04] MEDS: SODIUM CHLORIDE 0.9% 1,000 ML IV SCH (16:48)
[2020-01-04 16:52] LABS: INR 1.2 (<1.2); Prothrombin Time 11.9 sec (9.0-12.0)
[2020-01-04 16:56] LABS: Ionized Calcium 5.2 mg/dL (4.5-5.3)
[2020-01-04] MEDS ORDERED: NITROGLYCERIN-D5W PMX 50 MG in DEXTROSE/WATER 1 250ML.BAG IV SCH (17:00)
[2020-01-04 17:04] LABS: ALT 13 U/L (4-49); AST 55 U/L (17-59); African American GFR (CKD) >90 (>60 ml/min/1.73 sqM); Albumin 2.7 g/dL (3.5-5.0); Alkaline Phosphatase 48 U/L (38-126); Anion Gap 5 mmol/L; Blood Urea Nitrogen 15 mg/dL (9-20); Calcium 8.2 mg/dL (8.4-10.2); Carbon Dioxide 23 mmol/L (22-30); Chloride 112 mmol/L (98-107); Glucose 120 mg/dL (74-99); Magnesium 2.5 mg/dL (1.6-2.3); Non-African American GFR(CKD) >90 (>60 ml/min/1.73 sqM); Potassium 3.5 mmol/L (3.5-5.1); Sodium 140 mmol/L (137-145); Total Bilirubin 0.8 mg/dL (0.2-1.3); Total Protein 4.7 g/dL (6.3-8.2)
--- NOTE | 2020-01-04 17:20 | P.CNPUL ---
History of Present Illness Consult date: 01/04/20 Requesting physician: Brandon Hylton (Hematocrit) Reason for consult: other Chief complaint: Status post CABG. Patient has triple-vessel coronary artery disease. History of present illness: This is a 49-year-old white male recently diagnosed with triple-vessel coronary artery disease, patient underwent today elective triple coronary bypass grafting using BELTRAN to LAD, left radial artery to the ramus intermedius artery and reversed saphenous vein graft from the aorta to the posterior descending artery. Postoperatively, patient was on mechanical ventilation, and I was asked to see him on consultation. Ventilator settings were noted, patient was switched from IMV mode to assist control mode, rate was increased to 14 instead of 12, his tidal volume remains the same, PEEP remained the same at 8. Follow-up ABG is pending. Chest x-ray was reviewed and there was evidence of in proper placement of the [place]-Mik catheter, and this was pulled out and follow-up chest x-ray showed adequate placement in the left proximal pulmonary artery. Waveform was appropriate. And the [place]-Mik was wedging fine after adjustment. Review of Systems ROS unobtainable: due to endotracheal tube Past Medical History Past Medical History: Coronary Artery Disease (CAD), Heart Failure, Diabetes Mellitus, Hyperlipidemia, Hypertension, Myocardial Infarction ([place]) Additional Past Medical History / Comment(s): Sinus infections/allergies, recent admission for SOB which is now resolved Last Myocardial Infarction Date:: unknown History of Any Multi-Drug Resistant Organisms: None Reported Past Surgical History: Heart Catheterization Past Anesthesia/Blood Transfusion Reactions: Unable to Obtain Additional Past Anesthesia/Blood Transfusion Reaction / Comment(s): Pt has never had anesthesia, no family problems w/anesthesia Smoking Status: Never smoker - Past Family History Father Family Medical History: Coronary Artery Disease (CAD), Hyperlipidemia Additional Family Medical History / Comment(s): Father had CABG in his 40s Mother Family Medical History: Neurologic Disorder Additional Family Medical History / Comment(s): Mother of progressive neuropalsy Medications and Allergies Home Medications Medication Instructions Recorded Confirmed Type Atorvastatin [Lipitor] 40 mg PO HS #30 tab 12/08/19 01/04/20 Rx Clopidogrel [Plavix] 75 mg PO DAILY #30 tablet 12/08/19 01/04/20 Rx Furosemide [Lasix] 40 mg PO BID #60 tablet 12/08/19 01/04/20 Rx Nitroglycerin Sl Tabs [Nitrostat] 0.4 mg SUBLINGUAL Q5M PRN #30 tab 12/08/19 01/04/20 Rx Insulin Detemir [Levemir Flextouch] 20 units SQ HS 12/29/19 01/04/20 History Losartan [Cozaar] 25 mg PO DAILY 12/29/19 01/04/20 History Mupirocin 2% Oint [Bactroban 2% 1 applic NASAL BID #1 tube 12/29/19 01/04/20 Rx Oint] carvediloL [Coreg] 12.5 mg PO BID-W/MEALS 12/29/19 01/04/20 History Aspirin 324 mg PO DAILY 01/04/20 01/04/20 History Allergies Allergy/AdvReac Type Severity Reaction Status Date / Time No Known Allergies Allergy Verified 01/04/20 06:17 Physical Exam Vitals: Vital Signs Temp Pulse Resp BP BP Pulse Ox 01/04/20 06:29 97.8 F 82 18 146/79 151/109 100 Intake and Output 01/04/20 01/04/20 01/04/20 06:59 14:59 22:59 Intake Total 254 Output Total 2030 Balance 254 -2030 Intake: IV 254 Output: Urine 530 Estimated Blood Loss 1500 Other: Weight 93 kg Physical Exam: Revealed a 49-year-old obese white male in no distress sedated, just came up from the operating room. Head: Atraumatic normocephalic. Endotracheal tube and orogastric tube is noted. HEENT:[Neck is supple.] [No neck masses.] [No thyromegaly.] [No JVD.] Right IJ Cordis is noted, [place]-Mik catheter was also noted. Chest: [Symmetrical chest expansion, crackles at the bases, no rhonchi and no wheezes. Cardiac Exam: [Normal S1 and S2, no S3 gallop, no murmur.] Positive pericardial rub. Abdomen: [Obese, Soft, nontender, no megaly, no rebound, no guarding, normal bowel sounds.] Extremities: [No clubbing, no edema, no cyanosis.] Both lower extremities are wrapped with Dominic wrappings. Neurological Exam: Could not be assessed, patient is sedated. Psychiatric: Could not be assessed. Musculoskeletal: No deformities. Skin: No rashes. Results - Laboratory Findings CBC and BMP: 01/04/20 16:10 ABG ABG pH 7.32 (7.35-7.45) L 01/04/20 15:51 ABG pCO2 47 mmHg (35-45) H 01/04/20 15:51 ABG pO2 178 mmHg (83-108) H 01/04/20 15:51 ABG O2 Saturation 100.0 % (94-97) H 01/04/20 15:51 PT/INR, D-dimer PT 11.9 sec (9.0-12.0) 01/04/20 16:10 INR 1.2 (<1.2) H 01/04/20 16:10 Abnormal lab findings: Abnormal Labs 12/29/19 01/04/20 01/04/20 12:13 06:35 10:10 INR ABG pH ABG pCO2 34 L ABG pO2 116 H ABG Total CO2 ABG O2 Saturation 99.9 H ABG Hematocrit ABG Ionized Calcium ABG Glucose 168 H ABG Lactic Acid Hemoglobin Chloride Creatinine Glucose POC Glucose (mg/dL) 140 H Calcium Magnesium Total Protein Albumin Arterial Blood Glucose 168 H Crossmatch See Detail 01/04/20 01/04/20 01/04/20 10:12 12:19 13:00 INR ABG pH ABG pCO2 34 L ABG pO2 122 H 262 H 178 H ABG Total CO2 ABG O2 Saturation 99.0 H 100.0 H 99.6 H ABG Hematocrit ABG Ionized Calcium ABG Glucose 165 H 180 H 172 H ABG Lactic Acid Hemoglobin 12.7 L Chloride Creatinine Glucose POC Glucose (mg/dL) Calcium Magnesium Total Protein Albumin Arterial Blood Glucose 165 H 180 H 172 H Crossmatch 01/04/20 01/04/20 01/04/20 13:20 13:20 13:40 INR ABG pH ABG pCO2 ABG pO2 337 H 315 H 406 H ABG Total CO2 26 H 26 H 26 H ABG O2 Saturation 100.0 H 99.9 H 100.0 H ABG Hematocrit 32 L 31 L 31 L ABG Ionized Calcium 4.1 L 4.4 L ABG Glucose 153 H 231 H 245 H ABG Lactic Acid Hemoglobin 10.5 L 9.9 L 10.1 L Chloride Creatinine Glucose POC Glucose (mg/dL) Calcium Magnesium Total Protein Albumin Arterial Blood Glucose 153 H 231 H 245 H Crossmatch 01/04/20 01/04/20 01/04/20 13:59 14:25 15:06 INR ABG pH 7.32 L 7.31 L ABG pCO2 47 H 47 H ABG pO2 397 H 347 H 76 L ABG Total CO2 26 H 26 H 25 H ABG O2 Saturation 100.0 H 99.9 H ABG Hematocrit 31 L 30 L 32 L ABG Ionized Calcium 4.3 L ABG Glucose 241 H 214 H 170 H ABG Lactic Acid 2.1 H Hemoglobin 10.0 L 9.6 L 10.3 L Chloride Creatinine Glucose POC Glucose (mg/dL) Calcium Magnesium Total Protein Albumin Arterial Blood Glucose 241 H 214 H 170 H Crossmatch 01/04/20 01/04/20 01/04/20 15:51 16:10 16:10 INR 1.2 H ABG pH 7.32 L ABG pCO2 47 H ABG pO2 178 H ABG Total CO2 26 H ABG O2 Saturation 100.0 H ABG Hematocrit ABG Ionized Calcium ABG Glucose ABG Lactic Acid Hemoglobin Chloride 112 H Creatinine 0.50 L Glucose 120 H POC Glucose (mg/dL) Calcium 8.2 L Magnesium 2.5 H Total Protein 4.7 L Albumin 2.7 L Arterial Blood Glucose Crossmatch 01/04/20 01/04/20 16:15 16:39 INR ABG pH ABG pCO2 ABG pO2 ABG Total CO2 ABG O2 Saturation ABG Hematocrit ABG Ionized Calcium ABG Glucose ABG Lactic Acid Hemoglobin Chloride Creatinine Glucose POC Glucose (mg/dL) 126 H 116 H Calcium Magnesium Total Protein Albumin Arterial Blood Glucose Crossmatch - Diagnostic Findings Chest x-ray: image reviewed (Chest x-ray was reviewed, as noted in HPI.) Assessment and Plan Assessment: Impression: Status post CABG for triple vessel coronary artery disease, postoperative day #0. Malpositioning of the PA catheter, this was adjusted. And documented placement with a follow-up chest x-ray. Severe LV dysfunction/ischemic cardiomyopathy. History of previous myocardial infarction. History of type 2 diabetes. History of dyslipidemia. Benign essential hypertension. Morbid obesity. Restrictive lung disease secondary to obesity. Family history of premature coronary artery disease. Recommendation: Continue ventilatory support. Continue hemodynamic support. GI and DVT prophylaxis. Resume cardiac meds. adjusted PA catheter position at bedside. Ventilatory settings were adjusted accordingly, and another ABG is pending. Consider weaning and extubation in the next few hours. We'll continue to follow. Time with Patient: Greater than 30
[2020-01-04 17:28] LABS: Glucose,Whole Blood 104 mg/dL (75-99)
[2020-01-04 17:31] LABS: HGB 10.5 gm/dL (13.0-17.5)
--- NOTE | 2020-01-04 17:42 | XR ---
EXAMINATION TYPE: XR chest 1V portable DATE OF EXAM: 01/04/2020 COMPARISON: 01/04/2020 INDICATION: Repositioning [place]-Mik catheter TECHNIQUE: Single frontal view of the chest is obtained. FINDINGS: The heart size is enlarged. The pulmonary vasculature is prominent. Mild diffuse increased lung markings are present greater on the left. Subcutaneous emphysema is on th e left. Mediastinal tubes are present. Nasogastric tube transverses the thorax with the tip in the very proxi mal left upper quadrant abdomen. [place]-Mik catheter is been adjusted, tip appears to be in the main pulmonary artery region. Correlate with the waveforms. The recurrent tip is no longer evident. IMPRESSION: 1. [place]-Mik catheter tip adjusted, tip appears to be in the region of the main pulmonary artery. Cor relate with the waveforms. 2. Multiple lines and catheters discussed above. 3. Cardiomegaly and prominent pulmonary vascular markings.
[2020-01-04] MEDS: ACETAMINOPHEN IV (For NPO) 1,000 MG in EMPTY BAG 1 BAG IVPB SCH ×2 (18:01→23:20)
[2020-01-04] MEDS: KETOROLAC 15 MG/ML 1 ML VIAL IVP SCH (18:06)
[2020-01-04] MEDS: POTASSIUM CHLORIDE 20 MEQ in WATER FOR INJECTION 1 100ML.BAG IVPB SCH ×2 (18:07→21:28)
[2020-01-04 18:19] LABS: Glucose,Whole Blood 138 mg/dL (75-99)
[2020-01-04 18:48] LABS: ABG Base Excess -3.8 mmol/L; ABG HCO3 22 mmol/L (21-25); ABG Oxygen Saturation 93.6 % (94-97); ABG PCO2 39 mmHg (35-45); ABG PH 7.35 (7.35-7.45); ABG PO2 64 mmHg (83-108); ABG TCO2 23 mmol/L (19-24)
[2020-01-04 18:49] LABS: Allen Test Performed? no
[2020-01-04 19:01] LABS: Glucose,Whole Blood 158 mg/dL (75-99)
[2020-01-04] MEDS: IPRATROPIUM-ALBUTEROL 3 ML NEB INHALATION SCH ×2 (19:11)
[2020-01-04] MEDS: ONDANSETRON 4 MG/2 ML VIAL IVP PRN (19:12)
[2020-01-04] MEDS: METOCLOPRAMIDE 5 MG/ML 2 ML VIAL IVP PRN (19:28)
[2020-01-04 19:51] LABS: Basophils # (A) 0.1 k/uL (0-0.2); Basophils % (A) 0 %; Eosinophils % (A) 0 %; HGB 10.9 gm/dL (13.0-17.5); Lymphocytes # (A) 0.8 k/uL (1.0-4.8); Lymphocytes % (A) 6 %; MCH 30.3 pg (25.0-35.0); MCV 91.9 fL (80.0-100.0); Mean Platelet Volume 11.5; Monocytes # (A) 0.7 k/uL (0-1.0); Monocytes % (A) 5 %; Neutrophils # (A) 12.8 k/uL (1.3-7.7); Neutrophils % (A) 89 %; Platelet Count 133 k/uL (150-450); RDW 14.1 % (11.5-15.5); WBC 14.5 k/uL (3.8-10.6)
[2020-01-04 20:00] LABS: Glucose,Whole Blood 160 mg/dL (75-99)
[2020-01-04] MEDS ORDERED: MUPIROCIN 2% OINT 22 GM TUBE NASAL ONE (20:45)
[2020-01-04 21:31] LABS: Glucose,Whole Blood 150 mg/dL (75-99)
[2020-01-04 22:14] LABS: Glucose,Whole Blood 141 mg/dL (75-99)
[2020-01-04] MEDS: MUPIROCIN 2% OINT 22 GM TUBE NASAL SCH (22:32)
[2020-01-04] MEDS: METOPROLOL TARTRATE 12.5 MG TAB PO SCH (22:32)
[2020-01-04] MEDS ORDERED: METOPROLOL TARTRATE 12.5 MG TAB PO STA (22:45)
[2020-01-04 23:10] LABS: Glucose,Whole Blood 141 mg/dL (75-99)
[2020-01-04] MEDS: MECLIZINE 25 MG TAB PO PRN (23:18)
[2020-01-05 00:10] LABS: Glucose,Whole Blood 123 mg/dL (75-99)
[2020-01-05] MEDS: KETOROLAC 15 MG/ML 1 ML VIAL IVP SCH ×4 (00:38→18:43)
[2020-01-05] MEDS: HEPARIN SODIUM,PORCINE 5,000 UNIT/ML 1 ML VIAL SQ SCH ×3 (00:38→16:19)
[2020-01-05] MEDS: ALBUMIN HUMAN 5% 250 ML in EMPTY BAG 1 BAG IVPB PRN ×3 (00:42→21:35)
[2020-01-05 02:14] LABS: Glucose,Whole Blood 108 mg/dL (75-99)
[2020-01-05 03:07] LABS: Glucose,Whole Blood 112 mg/dL (75-99)
[2020-01-05] MEDS: HYDROcodone/APAP 5-325MG 1 EACH TAB PO PRN ×5 (03:51→20:37)
[2020-01-05 04:07] LABS: Glucose,Whole Blood 117 mg/dL (75-99)
[2020-01-05 04:12] LABS: Basophils % (A) 0 %; Eosinophils % (A) 0 %; HGB 9.9 gm/dL (13.0-17.5); Lymphocytes # (A) 0.7 k/uL (1.0-4.8); Lymphocytes % (A) 7 %; MCH 30.6 pg (25.0-35.0); MCHC 33.2 g/dL (31.0-37.0); MCV 92.2 fL (80.0-100.0); Mean Platelet Volume 12.8; Monocytes # (A) 0.5 k/uL (0-1.0); Monocytes % (A) 5 %; Neutrophils # (A) 8.7 k/uL (1.3-7.7); Neutrophils % (A) 87 %; Platelet Count 107 k/uL (150-450); RBC 3.25 m/uL (4.30-5.90); RDW 13.8 % (11.5-15.5)
[2020-01-05 04:36] LABS: ALT 14 U/L (4-49); AST 40 U/L (17-59); African American GFR (CKD) >90 (>60 ml/min/1.73 sqM); Albumin 3.2 g/dL (3.5-5.0); Alkaline Phosphatase 46 U/L (38-126); Anion Gap 8 mmol/L; Blood Urea Nitrogen 15 mg/dL (9-20); Calcium 8.4 mg/dL (8.4-10.2); Carbon Dioxide 20 mmol/L (22-30); Chloride 112 mmol/L (98-107); Glucose 118 mg/dL (74-99); Non-African American GFR(CKD) >90 (>60 ml/min/1.73 sqM); Potassium 4.6 mmol/L (3.5-5.1); Sodium 140 mmol/L (137-145); Total Protein 5.2 g/dL (6.3-8.2)
[2020-01-05 05:49] LABS: Glucose,Whole Blood 124 mg/dL (75-99)
[2020-01-05] MEDS: METOCLOPRAMIDE 5 MG/ML 2 ML VIAL IVP PRN ×3 (05:58→20:21)
[2020-01-05 06:59] LABS: Glucose,Whole Blood 128 mg/dL (75-99)
--- NOTE | 2020-01-05 08:43 | P.PN ---
Subjective Progress Note Date: 01/05/20 Principal diagnosis: Triple-vessel coronary artery disease with totally occluded obtuse marginal artery and right coronary artery with evidence of old posterolateral myocardial infarction, moderate left ventricular dysfunction with EF estimated at 30%. Previous medical history of recent non-STEMI, recent admission for acute systolic heart failure, hypertension, hyperlipidemia, uncontrolled type 2 diabetes mellitus with hyperglycemia and preoperative hemoglobin A1c 10.8%, obe sity, vertigo, and family history of premature coronary artery disease with father having had CABG in his 40s. POD #1 triple coronary artery bypass grafting using the left internal mammary artery to the left anterior descending artery, left radial artery from the aorta to the ramus intermedius artery, reverse saphenous vein graft from the aorta to the posterior descending artery, exclusion of the left atrial appendage using a 35 mm AtriClip, intraoperative transesophageal echocardiogram and epi-aortic scanning, endoscopic harvesting of the left radial artery, endoscopic harvesting of the left greater saphenous vein from the groin to above the ankle level, intraoperative graft flow measurements using the [employer] system. Postoperative acute blood loss anemia and thrombocytopenia, expected, dilutional The patient's currently sitting up in a recliner in no acute distress in the ICU. He was successfully extubated last night at 19:05. He states pain is controlled on current medication regimen, denies shortness of breath although he does state it is a bit painful to take a deep breath. He did state he had a couple episodes of dizziness with head movement, although he does have a pr evious history of vertigo. Remains in normal sinus rhythm and hemodynamically stable on 0.1 mcg/kg/m of milrinone. Right internal jugular Rathdrum/Cordis, right radial arterial line, mediastinal and left pleural chest tubes all present. No new concerns. Objective - Vital Signs Vital signs: Vital Signs Temp 99.1 F 01/05/20 06:09 Pulse 86 01/05/20 06:56 Resp 20 01/05/20 06:56 BP 102/74 01/05/20 06:56 Pulse Ox 96 01/05/20 06:56 Intake & Output 01/04/20 01/05/20 01/05/20 18:59 06:59 18:59 Intake Total 1524.653 8202.623 79 Output Total 2890 969 40 Balance -1781.367 215.623 39 Weight 101 kg Intake: IV 254 1091.74 79 ACETAMINOPHEN IV (For NPO 0 ) 1,000 mg In Empty Bag 1 bag @ 400 mls/hr IVPB Q6HR HERNANDEZ Rx#:[id number] Albumin Human 5% 250 ml 250 In Empty Bag 1 bag @ 250 mls/hr IVPB Q1HR PRN Rx#: [id number] CO/CI 130 20 Milrinone-D5w Pmx 20 mg 16.74 In Dextrose/Water 1 100ml .bag @ 0.1 MCG/KG/MIN 2. 79 mls/hr IV .Q24H HERNANDEZ Rx #:[id number] Nitroglycerin-D5w Pmx 50 9.0 mg In Dextrose/Water 1 250ml.bag @ 5 MCG/MIN 1.5 mls/hr IV .Q24H HERNANDEZ Rx#: [id number] Potassium Chloride 20 meq 100 In Water For Injection 1 100ml.bag @ 50 mls/hr IVPB Q2H HERNANDEZ Rx#: [id number] Sodium Chloride 0.9% 1, 500 50 000 ml @ 50 mls/hr IV . Q20H [facility]NANDEZ Rx#:[id number] ceFAZolin 2 gm In Sodium 50 Chloride 0.9% 50 ml @ 100 mls/hr IVPB Q8HR HERNANDEZ Rx# :[id number] pressure bag 36 9 Intake, IV Titration 854.633 92.883 Amount Albumin Human 5% 250 ml 500 In Empty Bag 1 bag @ 250 mls/hr IVPB Q1HR PRN Rx#: [id number] Clevidipine Butyrate 25 4.633 14.067 mg In Empty Bag 1 bag @ 1 MG/HR 2 mls/hr IV .Q24H HERNANDEZ Rx#:[id number] Insulin Regular 100 unit 28.816 In Sodium Chloride 0.9% 100 ml @ Per Protocol IV .Q0M HERNANDEZ Rx#:[id number] Potassium Chloride 20 meq 100 In Water For Injection 1 100ml.bag @ 50 mls/hr IVPB Q2H [facility]NANDEZ Rx#: [id number] Sodium Chloride 0.9% 1, 150 50 000 ml @ 50 mls/hr IV . Q20H [facility]NANDEZ Rx#:[id number] ceFAZolin 2 gm In Sodium 100 Chloride 0.9% 50 ml @ 100 mls/hr IVPB Q8HR HERNANDEZ Rx# :[id number] Output: Chest Tube Drainage 696 484 20 Left Pleural 550 145 Mediastinal 146 339 20 Drainage 20 Left Wrist 20 Urine 694 465 20 Estimated Blood Loss 1500 Other: Voiding Method Indwelling Catheter Indwelling Catheter ABP, PAP, CO, CI - Last Documented Arterial Blood Pressure 113/66 Pulmonary Artery Pressure 22/11 Cardiac Output 7.3 Cardiac Index 3.5 - Constitutional General appearance: Present: cooperative, no acute distress, obese - Respiratory Details: Lungs sounds diminished bilaterally. Respirations even, nonlabored. Currently on 2 L nasal cannula with oxygen saturation 97%. Able to achieve 750-1000 mL on his incentive spirometry. Strong cough. Mediastinal chest tube present to continuous wall suction, 195 mL serosanguineous drainage overnight, 500 mL since surgery, no air leak present. Left pleural chest tube present to continuous wall suction, 120 mL serosanguineous drainage overnight, 700 mL since surgery, no air leak present. - Cardiovascular Details: S1, S2 present. Regular rate and rhythm, sinus rhythm on telemetry. Sternum stable. Palpable peripheral pulses bilaterally. No edema present. No calf pain or tenderness noted. Heart hugger in place with patient demonstrating appropriate use. Antiembolism stockings, SCDs present. Right internal jugular Rathdrum/Cordis, right radial arterial line present. Last CO/CI 7.3/3.5 with CVP 4 and PA pressures 27/12 on 0.1 mcg/kg/m of Primacor. - Gastrointestinal Gastrointestinal Comment(s): Abdomen soft, nontender, nondistended. Hypoactive bowel sounds present 4 quadrants. Tolerating clear liquids. Negative flatus. - Genitourinary Genitourinary Comment(s): Johnston present draining clear, yellow urine. Output 30-40 mL/h overnight. - Integumentary Integumentary Comment(s): Skin is warm and dry with evidence of good perfusion. Anterior chest incision well approximated and covered with dry intact dressing. Left radial artery harvest site well approximated, Dominic wrap in place, PHANI drain present draining minimal thin drainage. Patient denies numbness or tingling to his hand, able to wiggle all fingers and alarm investigator appropriately, good cap refill. Left lower extremity EVH site well approximated without redness or drainage. - Neurologic Neurologic: Present: CNII-XII intact - Musculoskeletal Musculoskeletal: Present: strength equal bilaterally - Psychiatric Psychiatric: Present: A&O x's 3, appropriate affect, intact judgment & insight - Allied health notes Allied health notes reviewed: nursing - Labs CBC & Chem 7: 01/05/20 04:00 01/05/20 04:00 Labs: Abnormal Lab Results - Last 24 Hours (Table) 12/29/19 01/04/20 01/04/20 Range/Units 12:13 10:10 10:12 WBC (3.8-10.6) k/uL RBC (4.30-5.90) m/uL Hgb (13.0-17.5) gm/dL Hct (39.0-53.0) % Plt Count (150-450) k/uL Neutrophils # (1.3-7.7) k/uL Lymphocytes # (1.0-4.8) k/uL INR (<1.2) ABG pH (7.35-7.45) ABG pCO2 34 L 34 L (35-45) mmHg ABG pO2 116 H 122 H (83-108) mmHg ABG Total CO2 (19-24) mmol/L ABG O2 Saturation 99.9 H 99.0 H (94-97) % ABG Hematocrit (34.0-46.0) % ABG Ionized Calcium (4.5-5.3) mg/dL ABG Glucose 168 H 165 H (75-99) mg/dL ABG Lactic Acid (0.5-1.6) mmol/L Hemoglobin (13.0-17.5) gm/dL Chloride (98-107) mmol/L Carbon Dioxide (22-30) mmol/L Creatinine (0.66-1.25) mg/dL Glucose (74-99) mg/dL POC Glucose (mg/dL) (75-99) mg/dL Calcium (8.4-10.2) mg/dL Magnesium (1.6-2.3) mg/dL Total Protein (6.3-8.2) g/dL Albumin (3.5-5.0) g/dL Arterial Blood Glucose 168 H 165 H (75-99) mg/dL Crossmatch See Detail 01/04/20 01/04/20 01/04/20 Range/Units 12:19 13:00 13:20 WBC (3.8-10.6) k/uL RBC (4.30-5.90) m/uL Hgb (13.0-17.5) gm/dL Hct (39.0-53.0) % Plt Count (150-450) k/uL Neutrophils # (1.3-7.7) k/uL Lymphocytes # (1.0-4.8) k/uL INR (<1.2) ABG pH (7.35-7.45) ABG pCO2 (35-45) mmHg ABG pO2 262 H 178 H 337 H (83-108) mmHg ABG Total CO2 26 H (19-24) mmol/L ABG O2 Saturation 100.0 H 99.6 H 100.0 H (94-97) % ABG Hematocrit 32 L (34.0-46.0) % ABG Ionized Calcium 4.1 L (4.5-5.3) mg/dL ABG Glucose 180 H 172 H 153 H (75-99) mg/dL ABG Lactic Acid (0.5-1.6) mmol/L Hemoglobin 12.7 L 10.5 L (13.0-17.5) gm/dL Chloride (98-107) mmol/L Carbon Dioxide (22-30) mmol/L Creatinine (0.66-1.25) mg/dL Glucose (74-99) mg/dL POC Glucose (mg/dL) (75-99) mg/dL Calcium (8.4-10.2) mg/dL Magnesium (1.6-2.3) mg/dL Total Protein (6.3-8.2) g/dL Albumin (3.5-5.0) g/dL Arterial Blood Glucose 180 H 172 H 153 H (75-99) mg/dL Crossmatch 01/04/20 01/04/20 01/04/20 Range/Units 13:20 13:40 13:59 WBC (3.8-10.6) k/uL RBC (4.30-5.90) m/uL Hgb (13.0-17.5) gm/dL Hct (39.0-53.0) % Plt Count (150-450) k/uL Neutrophils # (1.3-7.7) k/uL Lymphocytes # (1.0-4.8) k/uL INR (<1.2) ABG pH (7.35-7.45) ABG pCO2 (35-45) mmHg ABG pO2 315 H 406 H 397 H (83-108) mmHg ABG Total CO2 26 H 26 H 26 H (19-24) mmol/L ABG O2 Saturation 99.9 H 100.0 H 100.0 H (94-97) % ABG Hematocrit 31 L 31 L 31 L (34.0-46.0) % ABG Ionized Calcium 4.4 L 4.3 L (4.5-5.3) mg/dL ABG Glucose 231 H 245 H 241 H (75-99) mg/dL ABG Lactic Acid (0.5-1.6) mmol/L Hemoglobin 9.9 L 10.1 L 10.0 L (13.0-17.5) gm/dL Chloride (98-107) mmol/L Carbon Dioxide (22-30) mmol/L Creatinine (0.66-1.25) mg/dL Glucose (74-99) mg/dL POC Glucose (mg/dL) (75-99) mg/dL Calcium (8.4-10.2) mg/dL Magnesium (1.6-2.3) mg/dL Total Protein (6.3-8.2) g/dL Albumin (3.5-5.0) g/dL Arterial Blood Glucose 231 H 245 H 241 H (75-99) mg/dL Crossmatch 01/04/20 01/04/20 01/04/20 Range/Units 14:25 15:06 15:51 WBC (3.8-10.6) k/uL RBC (4.30-5.90) m/uL Hgb (13.0-17.5) gm/dL Hct (39.0-53.0) % Plt Count (150-450) k/uL Neutrophils # (1.3-7.7) k/uL Lymphocytes # (1.0-4.8) k/uL INR (<1.2) ABG pH 7.32 L 7.31 L 7.32 L (7.35-7.45) ABG pCO2 47 H 47 H 47 H (35-45) mmHg ABG pO2 347 H 76 L 178 H (83-108) mmHg ABG Total CO2 26 H 25 H 26 H (19-24) mmol/L ABG O2 Saturation 99.9 H 100.0 H (94-97) % ABG Hematocrit 30 L 32 L (34.0-46.0) % ABG Ionized Calcium (4.5-5.3) mg/dL ABG Glucose 214 H 170 H (75-99) mg/dL ABG Lactic Acid 2.1 H (0.5-1.6) mmol/L Hemoglobin 9.6 L 10.3 L (13.0-17.5) gm/dL Chloride (98-107) mmol/L Carbon Dioxide (22-30) mmol/L Creatinine (0.66-1.25) mg/dL Glucose (74-99) mg/dL POC Glucose (mg/dL) (75-99) mg/dL Calcium (8.4-10.2) mg/dL Magnesium (1.6-2.3) mg/dL Total Protein (6.3-8.2) g/dL Albumin (3.5-5.0) g/dL Arterial Blood Glucose 214 H 170 H (75-99) mg/dL Crossmatch 01/04/20 01/04/20 01/04/20 Range/Units 16:10 16:10 16:10 WBC 11.4 H (3.8-10.6) k/uL RBC 3.39 L (4.30-5.90) m/uL Hgb 10.5 L D (13.0-17.5) gm/dL Hct 31.3 L (39.0-53.0) % Plt Count 120 L (150-450) k/uL Neutrophils # 9.6 H (1.3-7.7) k/uL Lymphocytes # (1.0-4.8) k/uL INR 1.2 H (<1.2) ABG pH (7.35-7.45) ABG pCO2 (35-45) mmHg ABG pO2 (83-108) mmHg ABG Total CO2 (19-24) mmol/L ABG O2 Saturation (94-97) % ABG Hematocrit (34.0-46.0) % ABG Ionized Calcium (4.5-5.3) mg/dL ABG Glucose (75-99) mg/dL ABG Lactic Acid (0.5-1.6) mmol/L Hemoglobin (13.0-17.5) gm/dL Chloride 112 H (98-107) mmol/L Carbon Dioxide (22-30) mmol/L Creatinine 0.50 L (0.66-1.25) mg/dL Glucose 120 H (74-99) mg/dL POC Glucose (mg/dL) (75-99) mg/dL Calcium 8.2 L (8.4-10.2) mg/dL Magnesium 2.5 H (1.6-2.3) mg/dL Total Protein 4.7 L (6.3-8.2) g/dL Albumin 2.7 L (3.5-5.0) g/dL Arterial Blood Glucose (75-99) mg/dL Crossmatch 01/04/20 01/04/20 01/04/20 Range/Units 16:15 16:39 17:09 WBC (3.8-10.6) k/uL RBC (4.30-5.90) m/uL Hgb (13.0-17.5) gm/dL Hct (39.0-53.0) % Plt Count (150-450) k/uL Neutrophils # (1.3-7.7) k/uL Lymphocytes # (1.0-4.8) k/uL INR (<1.2) ABG pH (7.35-7.45) ABG pCO2 (35-45) mmHg ABG pO2 (83-108) mmHg ABG Total CO2 (19-24) mmol/L ABG O2 Saturation (94-97) % ABG Hematocrit (34.0-46.0) % ABG Ionized Calcium (4.5-5.3) mg/dL ABG Glucose (75-99) mg/dL ABG Lactic Acid (0.5-1.6) mmol/L Hemoglobin (13.0-17.5) gm/dL Chloride (98-107) mmol/L Carbon Dioxide (22-30) mmol/L Creatinine (0.66-1.25) mg/dL Glucose (74-99) mg/dL POC Glucose (mg/dL) 126 H 116 H 104 H (75-99) mg/dL Calcium (8.4-10.2) mg/dL Magnesium (1.6-2.3) mg/dL Total Protein (6.3-8.2) g/dL Albumin (3.5-5.0) g/dL Arterial Blood Glucose (75-99) mg/dL Crossmatch 01/04/20 01/04/20 01/04/20 Range/Units 18:09 18:44 18:59 WBC (3.8-10.6) k/uL RBC (4.30-5.90) m/uL Hgb (13.0-17.5) gm/dL Hct (39.0-53.0) % Plt Count (150-450) k/uL Neutrophils # (1.3-7.7) k/uL Lymphocytes # (1.0-4.8) k/uL INR (<1.2) ABG pH (7.35-7.45) ABG pCO2 (35-45) mmHg ABG pO2 64 L (83-108) mmHg ABG Total CO2 (19-24) mmol/L ABG O2 Saturation 93.6 L (94-97) % ABG Hematocrit (34.0-46.0) % ABG Ionized Calcium (4.5-5.3) mg/dL ABG Glucose (75-99) mg/dL ABG Lactic Acid (0.5-1.6) mmol/L Hemoglobin (13.0-17.5) gm/dL Chloride (98-107) mmol/L Carbon Dioxide (22-30) mmol/L Creatinine (0.66-1.25) mg/dL Glucose (74-99) mg/dL POC Glucose (mg/dL) 138 H 158 H (75-99) mg/dL Calcium (8.4-10.2) mg/dL Magnesium (1.6-2.3) mg/dL Total Protein (6.3-8.2) g/dL Albumin (3.5-5.0) g/dL Arterial Blood Glucose (75-99) mg/dL Crossmatch 01/04/20 01/04/20 01/04/20 Range/Units 19:35 19:59 21:12 WBC 14.5 H (3.8-10.6) k/uL RBC 3.60 L (4.30-5.90) m/uL Hgb 10.9 L (13.0-17.5) gm/dL Hct 33.0 L (39.0-53.0) % Plt Count 133 L (150-450) k/uL Neutrophils # 12.8 H (1.3-7.7) k/uL Lymphocytes # 0.8 L (1.0-4.8) k/uL INR (<1.2) ABG pH (7.35-7.45) ABG pCO2 (35-45) mmHg ABG pO2 (83-108) mmHg ABG Total CO2 (19-24) mmol/L ABG O2 Saturation (94-97) % ABG Hematocrit (34.0-46.0) % ABG Ionized Calcium (4.5-5.3) mg/dL ABG Glucose (75-99) mg/dL ABG Lactic Acid (0.5-1.6) mmol/L Hemoglobin (13.0-17.5) gm/dL Chloride (98-107) mmol/L Carbon Dioxide (22-30) mmol/L Creatinine (0.66-1.25) mg/dL Glucose (74-99) mg/dL POC Glucose (mg/dL) 160 H 150 H (75-99) mg/dL Calcium (8.4-10.2) mg/dL Magnesium (1.6-2.3) mg/dL Total Protein (6.3-8.2) g/dL Albumin (3.5-5.0) g/dL Arterial Blood Glucose (75-99) mg/dL Crossmatch 01/04/20 01/04/20 01/05/20 Range/Units 22:12 23:08 00:08 WBC (3.8-10.6) k/uL RBC (4.30-5.90) m/uL Hgb (13.0-17.5) gm/dL Hct (39.0-53.0) % Plt Count (150-450) k/uL Neutrophils # (1.3-7.7) k/uL Lymphocytes # (1.0-4.8) k/uL INR (<1.2) ABG pH (7.35-7.45) ABG pCO2 (35-45) mmHg ABG pO2 (83-108) mmHg ABG Total CO2 (19-24) mmol/L ABG O2 Saturation (94-97) % ABG Hematocrit (34.0-46.0) % ABG Ionized Calcium (4.5-5.3) mg/dL ABG Glucose (75-99) mg/dL ABG Lactic Acid (0.5-1.6) mmol/L Hemoglobin (13.0-17.5) gm/dL Chloride (98-107) mmol/L Carbon Dioxide (22-30) mmol/L Creatinine (0.66-1.25) mg/dL Glucose (74-99) mg/dL POC Glucose (mg/dL) 141 H 141 H 123 H (75-99) mg/dL Calcium (8.4-10.2) mg/dL Magnesium (1.6-2.3) mg/dL Total Protein (6.3-8.2) g/dL Albumin (3.5-5.0) g/dL Arterial Blood Glucose (75-99) mg/dL Crossmatch 01/05/20 01/05/20 01/05/20 Range/Units 02:12 03:05 04:00 WBC (3.8-10.6) k/uL RBC 3.25 L (4.30-5.90) m/uL Hgb 9.9 L (13.0-17.5) gm/dL Hct 30.0 L (39.0-53.0) % Plt Count 107 L (150-450) k/uL Neutrophils # 8.7 H (1.3-7.7) k/uL Lymphocytes # 0.7 L (1.0-4.8) k/uL INR (<1.2) ABG pH (7.35-7.45) ABG pCO2 (35-45) mmHg ABG pO2 (83-108) mmHg ABG Total CO2 (19-24) mmol/L ABG O2 Saturation (94-97) % ABG Hematocrit (34.0-46.0) % ABG Ionized Calcium (4.5-5.3) mg/dL ABG Glucose (75-99) mg/dL ABG Lactic Acid (0.5-1.6) mmol/L Hemoglobin (13.0-17.5) gm/dL Chloride (98-107) mmol/L Carbon Dioxide (22-30) mmol/L Creatinine (0.66-1.25) mg/dL Glucose (74-99) mg/dL POC Glucose (mg/dL) 108 H 112 H (75-99) mg/dL Calcium (8.4-10.2) mg/dL Magnesium (1.6-2.3) mg/dL Total Protein (6.3-8.2) g/dL Albumin (3.5-5.0) g/dL Arterial Blood Glucose (75-99) mg/dL Crossmatch 01/05/20 01/05/20 01/05/20 Range/Units 04:00 04:05 05:48 WBC (3.8-10.6) k/uL RBC (4.30-5.90) m/uL Hgb (13.0-17.5) gm/dL Hct (39.0-53.0) % Plt Count (150-450) k/uL Neutrophils # (1.3-7.7) k/uL Lymphocytes # (1.0-4.8) k/uL INR (<1.2) ABG pH (7.35-7.45) ABG pCO2 (35-45) mmHg ABG pO2 (83-108) mmHg ABG Total CO2 (19-24) mmol/L ABG O2 Saturation (94-97) % ABG Hematocrit (34.0-46.0) % ABG Ionized Calcium (4.5-5.3) mg/dL ABG Glucose (75-99) mg/dL ABG Lactic Acid (0.5-1.6) mmol/L Hemoglobin (13.0-17.5) gm/dL Chloride 112 H (98-107) mmol/L Carbon Dioxide 20 L (22-30) mmol/L Creatinine 0.54 L (0.66-1.25) mg/dL Glucose 118 H (74-99) mg/dL POC Glucose (mg/dL) 117 H 124 H (75-99) mg/dL Calcium (8.4-10.2) mg/dL Magnesium (1.6-2.3) mg/dL Total Protein 5.2 L (6.3-8.2) g/dL Albumin 3.2 L (3.5-5.0) g/dL Arterial Blood Glucose (75-99) mg/dL Crossmatch 01/05/20 Range/Units 06:57 WBC (3.8-10.6) k/uL RBC (4.30-5.90) m/uL Hgb (13.0-17.5) gm/dL Hct (39.0-53.0) % Plt Count (150-450) k/uL Neutrophils # (1.3-7.7) k/uL Lymphocytes # (1.0-4.8) k/uL INR (<1.2) ABG pH (7.35-7.45) ABG pCO2 (35-45) mmHg ABG pO2 (83-108) mmHg ABG Total CO2 (19-24) mmol/L ABG O2 Saturation (94-97) % ABG Hematocrit (34.0-46.0) % ABG Ionized Calcium (4.5-5.3) mg/dL ABG Glucose (75-99) mg/dL ABG Lactic Acid (0.5-1.6) mmol/L Hemoglobin (13.0-17.5) gm/dL Chloride (98-107) mmol/L Carbon Dioxide (22-30) mmol/L Creatinine (0.66-1.25) mg/dL Glucose (74-99) mg/dL POC Glucose (mg/dL) 128 H (75-99) mg/dL Calcium (8.4-10.2) mg/dL Magnesium (1.6-2.3) mg/dL Total Protein (6.3-8.2) g/dL Albumin (3.5-5.0) g/dL Arterial Blood Glucose (75-99) mg/dL Crossmatch - Imaging and Cardiology Chest x-ray: image reviewed Assessment and Plan Assessment: 1. Triple-vessel coronary artery disease with totally occluded obtuse marginal artery and right coronary artery, status post three-vessel CABG 2. History of recent non-STEMI, recent admission for acute systolic heart failure with EF 30-35% 3. History of hypertension 4. History of hyperlipidemia, treated, cholesterol 223, LDL 163 5. Uncontrolled type 2 diabetes mellitus with hyperglycemia and preoperative hemoglobin A1c 10.8% 6. Obesity 7. Vertigo 8. Family history of premature coronary artery disease with father having had CABG in his 40s 9. Postoperative acute blood loss anemia and thrombocytopenia, expected, dilutional Plan: 1. Continue aspirin, statin, Plavix, beta david therapy. Will increase beta david therapy as tolerated 2. Discontinue IV nitro, discontinue IV Primacor. Start low-dose Norvasc for radial artery spasm. Do not discontinue CCB without discussed with cardiothoracic surgery 3. Wean O2 as tolerated. Encourage incentive spirometry use 10 times every hour while awake. Bronchodilators per pulmonology 4. Will monitor daily labs and x-rays. Electro replacement per protocol. No transfusion 5. GI/DVT prophylaxis 6. Pain controlled current medication regimen 7. Insulin management per Dr. Wray 8. May ground epicardial pacemaker wires 9. Discontinue Rathdrum. Connect Cordis to continue CVP monitoring 10. Will discontinue radial PHANI 11. Continue mediastinal and left pleural chest tubes for another 24 hours and monitor output and consistency 12. Keep Johnston for another 24 hours for strict accurate intake and output 13. Daily weights using standard upscale, not bed scale 14. More recommendations to follow based on patient's progress The patient was seen and examined and I agree with the assessment and plan documented by the nurse practitioner Time with Patient: Greater than 30
[2020-01-05] MEDS: CLOPIDOGREL 75 MG TAB PO SCH (08:56)
[2020-01-05] MEDS: ATORVASTATIN 40 MG TAB PO SCH (08:56)
[2020-01-05] MEDS: ASPIRIN 325 MG TAB PO SCH (08:56)
[2020-01-05] MEDS: METOPROLOL TARTRATE 12.5 MG TAB PO SCH ×2 (08:56→20:37)
[2020-01-05] MEDS: MUPIROCIN 2% OINT 22 GM TUBE NASAL SCH ×2 (08:57→20:37)
[2020-01-05] MEDS ORDERED: PANTOPRAZOLE 40 MG/10 ML VIAL IVP SCH (09:00)
[2020-01-05] MEDS ORDERED: bisacodyL 10 MG SUPP RECTAL PRN (09:00)
[2020-01-05] MEDS: ONDANSETRON 4 MG/2 ML VIAL IVP PRN ×2 (09:07→16:19)
[2020-01-05] MEDS: IPRATROPIUM-ALBUTEROL 3 ML NEB INHALATION SCH ×4 (09:10→21:19)
[2020-01-05 09:14] LABS: Glucose,Whole Blood 247 mg/dL (75-99)
[2020-01-05 09:38] VITALS: BMI 33.8
--- NOTE | 2020-01-05 09:52 | XR ---
EXAMINATION TYPE: XR chest 1V portable DATE OF EXAM: 01/05/2020 COMPARISON: 01/04/2020 HISTORY: Abnormal x-ray TECHNIQUE: Single frontal view of the chest is obtained. FINDINGS: [place]-Mik catheter stable in position. NG tube is been removed. Left-sided chest tube seen . Bilateral consolidation and pleural effusion noted. Subcutaneous emphysema noted on the left. No si zable pneumothorax. Heart is enlarged and there is postoperative change. Mediastinal drain noted. IMPRESSION: 1. Diffuse pleural parenchymal changes stable may be on the basis of CHF. Underlying pneumonia not ex cluded. 2. Postoperative changes
[2020-01-05 10:21] LABS: Glucose,Whole Blood 229 mg/dL (75-99)
[2020-01-05 11:19] LABS: Glucose,Whole Blood 198 mg/dL (75-99)
[2020-01-05] MEDS: SODIUM CHLORIDE 0.9% 1,000 ML IV SCH (12:01)
[2020-01-05 12:26] LABS: Glucose,Whole Blood 161 mg/dL (75-99)
--- NOTE | 2020-01-05 12:50 | CONS ---
ZELDA Serrano is a 49-year-old gentleman who is admitted to hospital for bypass surgery. He recently was admitted to hospital with unstable angina, underwent cardiac catheterization and was referred for bypass surgery. He has 3 vessel coronary artery disease, a totally occluded OM branch, right coronary artery and has severe LV dysfunction. Patient during surgery had occlusion of the left atrial appendage with an atrial clip. His bypass surgery involved BELTRAN to LAD, radial artery graft to ramus intermedius, reverse vein graft to the PDA. This morning he is extubated, doing well and is free of symptoms. His ejection fraction is 30%. Patient is currently on Norvasc 2.5 mg daily, Lipitor 40 mg daily, Plavix Lopressor. ALLERGIES: There are no known drug allergies. FAMILY HISTORY: Negative for premature coronary artery disease. SOCIAL HISTORY: Denies current smoking, EtOH abuse, or drug abuse. REVIEW OF SYSTEMS: HEENT: Unremarkable. CARDIAC: As described above. RESPIRATORY: As described above. GI: Negative. GENITOURINARY: Negative. ALLERGY/IMMUNOLOGY: Negative. SKIN: Negative. MUSCULOSKELETAL: Negative. ENDOCRINE: Negative. CONSTITUTIONAL: Negative. ONCOLOGICAL: Negative. DIRECTOR OF NURSES REGISTRY: Negative. Rest of the system review is not relevant. PAST MEDICAL HISTORY: Significant for diabetes, hypertension, cardiomyopathy. MEDICATIONS: At home included Plavix Coreg, Lasix, Cozaar, Lipitor and aspirin. PHYSICAL EXAM: Patient is comfortable at rest. Vital signs are stable. There is no jugular venous distention. Carotid upstroke is normal. There is no bruit. Chest exam reveals good air entry bilaterally. Heart exam reveals first and second heart sounds. No gallop. Has a systolic murmur at the apex. Abdomen is soft. Exam of extremities did not reveal any edema. Peripheral pulses are felt. LABS: Today show that the hemoglobin is 9.9, potassium is 4.6. ASSESSMENT: 1. Coronary artery disease, status post bypass, postoperative day #1. 2. Ischemic cardiomyopathy. PLAN: Patient is doing well. He is on optimal medical therapy, made excellent recovery from surgery. We need to reassess his LV function over the next 3-6 months' time and if it does not improve in spite of the revascularization, he will need an ICD. MMODL / IJN: [id number] /
[2020-01-05 13:46] LABS: Glucose,Whole Blood 127 mg/dL (75-99)
[2020-01-05 15:00] LABS: Glucose,Whole Blood 134 mg/dL (75-99)
--- NOTE | 2020-01-05 16:05 | P.PN ---
Subjective Progress Note Date: 01/05/20 Principal diagnosis: Status post CABG for triple vessel coronary artery disease, postoperative day #1 This is a 49-year-old white male recently diagnosed with triple-vessel coronary artery disease, patient underwent today elective triple coronary bypass grafting using BELTRAN to LAD, left radial artery to the ramus intermedius artery and reversed saphenous vein graft from the aorta to the posterior descending artery. Postoperatively, patient was on mechanical ventilation, and I was asked to see him on consultation. Ventilator settings were noted, patient was switched from IMV mode to assist control mode, rate was increased to 14 instead of 12, his tidal volume remains the same, PEEP remained the same at 8. Follow-up ABG is pending. Chest x-ray was reviewed and there was evidence of in proper placement of the Witten-Mik catheter, and this was pulled out and follow-up chest x-ray showed adequate placement in the left proximal pulmonary artery. Waveform was appropriate. And the Witten-Mik was wedging fine after adjustment. Patient was reevaluated today on 01/05/20, remains in the ICU, patient was extubated shortly after he arrived to the ICU from bypass surgery. Patient was extubated at 1905. Patient is sitting at a bedside chair, he is on 4 L nasal cannula with O2 saturation of 96%. He is not requiring any inotropes, not requiring any pressors, he is only on insulin at 7 units per hour. And he is on 0.9 normal saline at 50 mL per hour. Chest x-ray showed very minimal postoperative changes and atelectasis as expected. Patient is doing fairly well with incentive spirometry. CBC is relatively normal hemoglobin is 9.9. WBC count is 10.0. Basic metabolic profile is normal. Renal profile is normal. Objective - Vital Signs Vital signs: Vital Signs Temp 97.8 F 01/05/20 12:00 Pulse 80 01/05/20 15:00 Resp 16 01/05/20 15:00 BP 93/63 01/05/20 15:00 Pulse Ox 98 01/05/20 15:00 Intake & Output 01/04/20 01/05/20 01/05/20 18:59 06:59 18:59 Intake Total 9486.939 6744.623 680.883 Output Total 2890 969 380 Balance -1781.367 215.623 300.883 Weight 101 kg 101 kg Intake: IV 254 1091.74 414.3 ACETAMINOPHEN IV (For NPO 0 ) 1,000 mg In Empty Bag 1 bag @ 400 mls/hr IVPB Q6HR [facility] Rx#:[id number] Albumin Human 5% 250 ml 250 In Empty Bag 1 bag @ 250 mls/hr IVPB Q1HR PRN Rx#: [id number] CO/CI 130 40 Milrinone-D5w Pmx 20 mg 16.74 2.8 In Dextrose/Water 1 100ml .bag @ 0.1 MCG/KG/MIN 2. 79 mls/hr IV .Q24H [facility] Rx #:[id number] Nitroglycerin-D5w Pmx 50 9.0 1.5 mg In Dextrose/Water 1 250ml.bag @ 5 MCG/MIN 1.5 mls/hr IV .Q24H [facility] Rx#: [id number] Potassium Chloride 20 meq 100 In Water For Injection 1 100ml.bag @ 50 mls/hr IVPB Q2H [facility] Rx#: [id number] Sodium Chloride 0.9% 1, 500 210 000 ml @ 20 mls/hr IV . Q24H [facility] Rx#:[id number] ceFAZolin 2 gm In Sodium 50 100 Chloride 0.9% 50 ml @ 100 mls/hr IVPB Q8HR [facility] Rx# :[id number] pressure bag 36 60 Intake, IV Titration 854.633 92.883 26.583 Amount Albumin Human 5% 250 ml 500 In Empty Bag 1 bag @ 250 mls/hr IVPB Q1HR PRN Rx#: [id number] Clevidipine Butyrate 25 4.633 14.067 mg In Empty Bag 1 bag @ 1 MG/HR 2 mls/hr IV .Q24H [facility] Rx#:[id number] Insulin Regular 100 unit 28.816 26.583 In Sodium Chloride 0.9% 100 ml @ Per Protocol IV .Q0M [facility] Rx#:[id number] Potassium Chloride 20 meq 100 In Water For Injection 1 100ml.bag @ 50 mls/hr IVPB Q2H [facility] Rx#: [id number] Sodium Chloride 0.9% 1, 150 50 000 ml @ 20 mls/hr IV . Q24H [facility] Rx#:[id number] ceFAZolin 2 gm In Sodium 100 Chloride 0.9% 50 ml @ 100 mls/hr IVPB Q8HR [facility] Rx# :[id number] Oral 240 Output: Chest Tube Drainage 696 484 150 Left Pleural 550 145 50 Mediastinal 146 339 100 Drainage 20 Left Wrist 20 Urine 694 465 230 Estimated Blood Loss 1500 Other: Voiding Method Indwelling Catheter Indwelling Catheter Indwelling Catheter ABP, PAP, CO, CI - Last Documented Arterial Blood Pressure 102/59 Pulmonary Artery Pressure 21/9 Cardiac Output 6.4 Cardiac Index 3.1 - Exam Physical Exam: Revealed a 49-year-old white male obese in no distress. Sitting in a recliner, on 4 L nasal cannula with O2 saturations 96%. Head: Atraumatic normocephalic. Right IJ Cordis and PA catheter noted. HEENT:[Neck is supple.] [No neck masses.] [No thyromegaly.] [No JVD.] Chest: [Symmetrical chest expansion, crackles at the bases, no rhonchi and no wheezes.Mediastinal chest tube present to continuous wall suction, 195 mL serosanguineous drainage overnight, 500 mL since surgery, no air leak present. Left pleural chest tube present to continuous wall suction, 120 mL serosanguineous drainage overnight, 700 mL since surgery, no air leak present. Cardiac Exam: [Normal S1 and S2, no S3 gallop, no murmur.] Positive pericardial rub.Last CO/CI 7.3/3.5 with CVP 4 and PA pressures 27/12 on 0.1 mcg/kg/m of P rimacor. Abdomen: [Soft, nontender, no megaly, no rebound, no guarding, normal bowel sounds.] Extremities: [No clubbing, no edema, no cyanosis.] Neurological Exam: [No focal neurologic deficit.] Alert and oriented 3. Psychiatric: Normal mood, affect and normal mental status examination. HEENT: No rashes - Labs CBC & Chem 7: 01/05/20 04:00 01/05/20 04:00 Labs: Abnormal Lab Results - Last 24 Hours (Table) 12/29/19 01/04/20 01/04/20 Range/Units 12:13 09:10 09:12 WBC (3.8-10.6) k/uL RBC (4.30-5.90) m/uL Hgb (13.0-17.5) gm/dL Hct (39.0-53.0) % Plt Count (150-450) k/uL Neutrophils # (1.3-7.7) k/uL Lymphocytes # (1.0-4.8) k/uL INR (<1.2) ABG pH (7.35-7.45) ABG pCO2 34 L 34 L (35-45) mmHg ABG pO2 116 H 122 H (83-108) mmHg ABG Total CO2 (19-24) mmol/L ABG O2 Saturation 99.9 H 99.0 H (94-97) % ABG Hematocrit (34.0-46.0) % ABG Ionized Calcium (4.5-5.3) mg/dL ABG Glucose 168 H 165 H (75-99) mg/dL Hemoglobin (13.0-17.5) gm/dL Chloride (98-107) mmol/L Carbon Dioxide (22-30) mmol/L Creatinine (0.66-1.25) mg/dL Glucose (74-99) mg/dL POC Glucose (mg/dL) (75-99) mg/dL Calcium (8.4-10.2) mg/dL Magnesium (1.6-2.3) mg/dL Total Protein (6.3-8.2) g/dL Albumin (3.5-5.0) g/dL Arterial Blood Glucose 168 H 165 H (75-99) mg/dL Crossmatch See Detail 01/04/20 01/04/20 01/04/20 Range/Units 11:19 12:00 12:20 WBC (3.8-10.6) k/uL RBC (4.30-5.90) m/uL Hgb (13.0-17.5) gm/dL Hct (39.0-53.0) % Plt Count (150-450) k/uL Neutrophils # (1.3-7.7) k/uL Lymphocytes # (1.0-4.8) k/uL INR (<1.2) ABG pH (7.35-7.45) ABG pCO2 (35-45) mmHg ABG pO2 262 H 178 H 337 H (83-108) mmHg ABG Total CO2 26 H (19-24) mmol/L ABG O2 Saturation 100.0 H 99.6 H 100.0 H (94-97) % ABG Hematocrit 32 L (34.0-46.0) % ABG Ionized Calcium 4.1 L (4.5-5.3) mg/dL ABG Glucose 180 H 172 H 153 H (75-99) mg/dL Hemoglobin 12.7 L 10.5 L (13.0-17.5) gm/dL Chloride (98-107) mmol/L Carbon Dioxide (22-30) mmol/L Creatinine (0.66-1.25) mg/dL Glucose (74-99) mg/dL POC Glucose (mg/dL) (75-99) mg/dL Calcium (8.4-10.2) mg/dL Magnesium (1.6-2.3) mg/dL Total Protein (6.3-8.2) g/dL Albumin (3.5-5.0) g/dL Arterial Blood Glucose 180 H 172 H 153 H (75-99) mg/dL Crossmatch 01/04/20 01/04/20 01/04/20 Range/Units 12:40 12:59 15:51 WBC (3.8-10.6) k/uL RBC (4.30-5.90) m/uL Hgb (13.0-17.5) gm/dL Hct (39.0-53.0) % Plt Count (150-450) k/uL Neutrophils # (1.3-7.7) k/uL Lymphocytes # (1.0-4.8) k/uL INR (<1.2) ABG pH 7.32 L (7.35-7.45) ABG pCO2 47 H (35-45) mmHg ABG pO2 406 H 397 H 178 H (83-108) mmHg ABG Total CO2 26 H 26 H 26 H (19-24) mmol/L ABG O2 Saturation 100.0 H 100.0 H 100.0 H (94-97) % ABG Hematocrit 31 L 31 L (34.0-46.0) % ABG Ionized Calcium 4.4 L 4.3 L (4.5-5.3) mg/dL ABG Glucose 245 H 241 H (75-99) mg/dL Hemoglobin 10.1 L 10.0 L (13.0-17.5) gm/dL Chloride (98-107) mmol/L Carbon Dioxide (22-30) mmol/L Creatinine (0.66-1.25) mg/dL Glucose (74-99) mg/dL POC Glucose (mg/dL) (75-99) mg/dL Calcium (8.4-10.2) mg/dL Magnesium (1.6-2.3) mg/dL Total Protein (6.3-8.2) g/dL Albumin (3.5-5.0) g/dL Arterial Blood Glucose 245 H 241 H (75-99) mg/dL Crossmatch 01/04/20 01/04/20 01/04/20 Range/Units 16:10 16:10 16:10 WBC 11.4 H (3.8-10.6) k/uL RBC 3.39 L (4.30-5.90) m/uL Hgb 10.5 L D (13.0-17.5) gm/dL Hct 31.3 L (39.0-53.0) % Plt Count 120 L (150-450) k/uL Neutrophils # 9.6 H (1.3-7.7) k/uL Lymphocytes # (1.0-4.8) k/uL INR 1.2 H (<1.2) ABG pH (7.35-7.45) ABG pCO2 (35-45) mmHg ABG pO2 (83-108) mmHg ABG Total CO2 (19-24) mmol/L ABG O2 Saturation (94-97) % ABG Hematocrit (34.0-46.0) % ABG Ionized Calcium (4.5-5.3) mg/dL ABG Glucose (75-99) mg/dL Hemoglobin (13.0-17.5) gm/dL Chloride 112 H (98-107) mmol/L Carbon Dioxide (22-30) mmol/L Creatinine 0.50 L (0.66-1.25) mg/dL Glucose 120 H (74-99) mg/dL POC Glucose (mg/dL) (75-99) mg/dL Calcium 8.2 L (8.4-10.2) mg/dL Magnesium 2.5 H (1.6-2.3) mg/dL Total Protein 4.7 L (6.3-8.2) g/dL Albumin 2.7 L (3.5-5.0) g/dL Arterial Blood Glucose (75-99) mg/dL Crossmatch 01/04/20 01/04/20 01/04/20 Range/Units 16:15 16:39 17:09 WBC (3.8-10.6) k/uL RBC (4.30-5.90) m/uL Hgb (13.0-17.5) gm/dL Hct (39.0-53.0) % Plt Count (150-450) k/uL Neutrophils # (1.3-7.7) k/uL Lymphocytes # (1.0-4.8) k/uL INR (<1.2) ABG pH (7.35-7.45) ABG pCO2 (35-45) mmHg ABG pO2 (83-108) mmHg ABG Total CO2 (19-24) mmol/L ABG O2 Saturation (94-97) % ABG Hematocrit (34.0-46.0) % ABG Ionized Calcium (4.5-5.3) mg/dL ABG Glucose (75-99) mg/dL Hemoglobin (13.0-17.5) gm/dL Chloride (98-107) mmol/L Carbon Dioxide (22-30) mmol/L Creatinine (0.66-1.25) mg/dL Glucose (74-99) mg/dL POC Glucose (mg/dL) 126 H 116 H 104 H (75-99) mg/dL Calcium (8.4-10.2) mg/dL Magnesium (1.6-2.3) mg/dL Total Protein (6.3-8.2) g/dL Albumin (3.5-5.0) g/dL Arterial Blood Glucose (75-99) mg/dL Crossmatch 01/04/20 01/04/20 01/04/20 Range/Units 18:09 18:44 18:59 WBC (3.8-10.6) k/uL RBC (4.30-5.90) m/uL Hgb (13.0-17.5) gm/dL Hct (39.0-53.0) % Plt Count (150-450) k/uL Neutrophils # (1.3-7.7) k/uL Lymphocytes # (1.0-4.8) k/uL INR (<1.2) ABG pH (7.35-7.45) ABG pCO2 (35-45) mmHg ABG pO2 64 L (83-108) mmHg ABG Total CO2 (19-24) mmol/L ABG O2 Saturation 93.6 L (94-97) % ABG Hematocrit (34.0-46.0) % ABG Ionized Calcium (4.5-5.3) mg/dL ABG Glucose (75-99) mg/dL Hemoglobin (13.0-17.5) gm/dL Chloride (98-107) mmol/L Carbon Dioxide (22-30) mmol/L Creatinine (0.66-1.25) mg/dL Glucose (74-99) mg/dL POC Glucose (mg/dL) 138 H 158 H (75-99) mg/dL Calcium (8.4-10.2) mg/dL Magnesium (1.6-2.3) mg/dL Total Protein (6.3-8.2) g/dL Albumin (3.5-5.0) g/dL Arterial Blood Glucose (75-99) mg/dL Crossmatch 01/04/20 01/04/20 01/04/20 Range/Units 19:35 19:59 21:12 WBC 14.5 H (3.8-10.6) k/uL RBC 3.60 L (4.30-5.90) m/uL Hgb 10.9 L (13.0-17.5) gm/dL Hct 33.0 L (39.0-53.0) % Plt Count 133 L (150-450) k/uL Neutrophils # 12.8 H (1.3-7.7) k/uL Lymphocytes # 0.8 L (1.0-4.8) k/uL INR (<1.2) ABG pH (7.35-7.45) ABG pCO2 (35-45) mmHg ABG pO2 (83-108) mmHg ABG Total CO2 (19-24) mmol/L ABG O2 Saturation (94-97) % ABG Hematocrit (34.0-46.0) % ABG Ionized Calcium (4.5-5.3) mg/dL ABG Glucose (75-99) mg/dL Hemoglobin (13.0-17.5) gm/dL Chloride (98-107) mmol/L Carbon Dioxide (22-30) mmol/L Creatinine (0.66-1.25) mg/dL Glucose (74-99) mg/dL POC Glucose (mg/dL) 160 H 150 H (75-99) mg/dL Calcium (8.4-10.2) mg/dL Magnesium (1.6-2.3) mg/dL Total Protein (6.3-8.2) g/dL Albumin (3.5-5.0) g/dL Arterial Blood Glucose (75-99) mg/dL Crossmatch 01/04/20 01/04/20 01/05/20 Range/Units 22:12 23:08 00:08 WBC (3.8-10.6) k/uL RBC (4.30-5.90) m/uL Hgb (13.0-17.5) gm/dL Hct (39.0-53.0) % Plt Count (150-450) k/uL Neutrophils # (1.3-7.7) k/uL Lymphocytes # (1.0-4.8) k/uL INR (<1.2) ABG pH (7.35-7.45) ABG pCO2 (35-45) mmHg ABG pO2 (83-108) mmHg ABG Total CO2 (19-24) mmol/L ABG O2 Saturation (94-97) % ABG Hematocrit (34.0-46.0) % ABG Ionized Calcium (4.5-5.3) mg/dL ABG Glucose (75-99) mg/dL Hemoglobin (13.0-17.5) gm/dL Chloride (98-107) mmol/L Carbon Dioxide (22-30) mmol/L Creatinine (0.66-1.25) mg/dL Glucose (74-99) mg/dL POC Glucose (mg/dL) 141 H 141 H 123 H (75-99) mg/dL Calcium (8.4-10.2) mg/dL Magnesium (1.6-2.3) mg/dL Total Protein (6.3-8.2) g/dL Albumin (3.5-5.0) g/dL Arterial Blood Glucose (75-99) mg/dL Crossmatch 01/05/20 01/05/20 01/05/20 Range/Units 02:12 03:05 04:00 WBC (3.8-10.6) k/uL RBC 3.25 L (4.30-5.90) m/uL Hgb 9.9 L (13.0-17.5) gm/dL Hct 30.0 L (39.0-53.0) % Plt Count 107 L (150-450) k/uL Neutrophils # 8.7 H (1.3-7.7) k/uL Lymphocytes # 0.7 L (1.0-4.8) k/uL INR (<1.2) ABG pH (7.35-7.45) ABG pCO2 (35-45) mmHg ABG pO2 (83-108) mmHg ABG Total CO2 (19-24) mmol/L ABG O2 Saturation (94-97) % ABG Hematocrit (34.0-46.0) % ABG Ionized Calcium (4.5-5.3) mg/dL ABG Glucose (75-99) mg/dL Hemoglobin (13.0-17.5) gm/dL Chloride (98-107) mmol/L Carbon Dioxide (22-30) mmol/L Creatinine (0.66-1.25) mg/dL Glucose (74-99) mg/dL POC Glucose (mg/dL) 108 H 112 H (75-99) mg/dL Calcium (8.4-10.2) mg/dL Magnesium (1.6-2.3) mg/dL Total Protein (6.3-8.2) g/dL Albumin (3.5-5.0) g/dL Arterial Blood Glucose (75-99) mg/dL Crossmatch 01/05/20 01/05/20 01/05/20 Range/Units 04:00 04:05 05:48 WBC (3.8-10.6) k/uL RBC (4.30-5.90) m/uL Hgb (13.0-17.5) gm/dL Hct (39.0-53.0) % Plt Count (150-450) k/uL Neutrophils # (1.3-7.7) k/uL Lymphocytes # (1.0-4.8) k/uL INR (<1.2) ABG pH (7.35-7.45) ABG pCO2 (35-45) mmHg ABG pO2 (83-108) mmHg ABG Total CO2 (19-24) mmol/L ABG O2 Saturation (94-97) % ABG Hematocrit (34.0-46.0) % ABG Ionized Calcium (4.5-5.3) mg/dL ABG Glucose (75-99) mg/dL Hemoglobin (13.0-17.5) gm/dL Chloride 112 H (98-107) mmol/L Carbon Dioxide 20 L (22-30) mmol/L Creatinine 0.54 L (0.66-1.25) mg/dL Glucose 118 H (74-99) mg/dL POC Glucose (mg/dL) 117 H 124 H (75-99) mg/dL Calcium (8.4-10.2) mg/dL Magnesium (1.6-2.3) mg/dL Total Protein 5.2 L (6.3-8.2) g/dL Albumin 3.2 L (3.5-5.0) g/dL Arterial Blood Glucose (75-99) mg/dL Crossmatch 01/05/20 01/05/20 01/05/20 Range/Units 06:57 09:12 10:19 WBC (3.8-10.6) k/uL RBC (4.30-5.90) m/uL Hgb (13.0-17.5) gm/dL Hct (39.0-53.0) % Plt Count (150-450) k/uL Neutrophils # (1.3-7.7) k/uL Lymphocytes # (1.0-4.8) k/uL INR (<1.2) ABG pH (7.35-7.45) ABG pCO2 (35-45) mmHg ABG pO2 (83-108) mmHg ABG Total CO2 (19-24) mmol/L ABG O2 Saturation (94-97) % ABG Hematocrit (34.0-46.0) % ABG Ionized Calcium (4.5-5.3) mg/dL ABG Glucose (75-99) mg/dL Hemoglobin (13.0-17.5) gm/dL Chloride (98-107) mmol/L Carbon Dioxide (22-30) mmol/L Creatinine (0.66-1.25) mg/dL Glucose (74-99) mg/dL POC Glucose (mg/dL) 128 H 247 H 229 H (75-99) mg/dL Calcium (8.4-10.2) mg/dL Magnesium (1.6-2.3) mg/dL Total Protein (6.3-8.2) g/dL Albumin (3.5-5.0) g/dL Arterial Blood Glucose (75-99) mg/dL Crossmatch 01/05/20 01/05/20 01/05/20 Range/Units 11:18 12:24 13:44 WBC (3.8-10.6) k/uL RBC (4.30-5.90) m/uL Hgb (13.0-17.5) gm/dL Hct (39.0-53.0) % Plt Count (150-450) k/uL Neutrophils # (1.3-7.7) k/uL Lymphocytes # (1.0-4.8) k/uL INR (<1.2) ABG pH (7.35-7.45) ABG pCO2 (35-45) mmHg ABG pO2 (83-108) mmHg ABG Total CO2 (19-24) mmol/L ABG O2 Saturation (94-97) % ABG Hematocrit (34.0-46.0) % ABG Ionized Calcium (4.5-5.3) mg/dL ABG Glucose (75-99) mg/dL Hemoglobin (13.0-17.5) gm/dL Chloride (98-107) mmol/L Carbon Dioxide (22-30) mmol/L Creatinine (0.66-1.25) mg/dL Glucose (74-99) mg/dL POC Glucose (mg/dL) 198 H 161 H 127 H (75-99) mg/dL Calcium (8.4-10.2) mg/dL Magnesium (1.6-2.3) mg/dL Total Protein (6.3-8.2) g/dL Albumin (3.5-5.0) g/dL Arterial Blood Glucose (75-99) mg/dL Crossmatch 01/05/20 Range/Units 14:58 WBC (3.8-10.6) k/uL RBC (4.30-5.90) m/uL Hgb (13.0-17.5) gm/dL Hct (39.0-53.0) % Plt Count (150-450) k/uL Neutrophils # (1.3-7.7) k/uL Lymphocytes # (1.0-4.8) k/uL INR (<1.2) ABG pH (7.35-7.45) ABG pCO2 (35-45) mmHg ABG pO2 (83-108) mmHg ABG Total CO2 (19-24) mmol/L ABG O2 Saturation (94-97) % ABG Hematocrit (34.0-46.0) % ABG Ionized Calcium (4.5-5.3) mg/dL ABG Glucose (75-99) mg/dL Hemoglobin (13.0-17.5) gm/dL Chloride (98-107) mmol/L Carbon Dioxide (22-30) mmol/L Creatinine (0.66-1.25) mg/dL Glucose (74-99) mg/dL POC Glucose (mg/dL) 134 H (75-99) mg/dL Calcium (8.4-10.2) mg/dL Magnesium (1.6-2.3) mg/dL Total Protein (6.3-8.2) g/dL Albumin (3.5-5.0) g/dL Arterial Blood Glucose (75-99) mg/dL Crossmatch Assessment and Plan Assessment: Impression: Status post CABG for triple vessel coronary artery disease, postoperative day #1, successful extubation at 1905 last night. Severe LV dysfunction/ischemic cardiomyopathy. Postoperative atelectasis, expected. History of previous myocardial infarction. History of type 2 diabetes. History of dyslipidemia. Benign essential hypertension. Morbid obesity. Restrictive lung disease secondary to obesity. Family history of premature coronary artery disease. Recommendation: Continue beta blockers statins and Plavix aspirin. Wean oxygen as tolerated. Discontinue unnecessary catheters. Continue insulin. Continue pain control. Continue incentive spirometry. Data chest x-ray and daily labs. We'll continue to follow. Time with Patient: Less than 30
[2020-01-05 16:10] LABS: Glucose,Whole Blood 132 mg/dL (75-99)
--- NOTE | 2020-01-05 16:46 | P.CONS ---
History of Present Illness - Reason for Consult Consult date: 01/05/20 Medical management Requesting physician: Brandon Hylton - Chief Complaint CABG - History of Present Illness This is a pleasant 49-year-old patient who follows with Dr. coburn from [place]. Chronic stable medical conditions include diabetes, hypertension, hyperlipidemia. Patient in the hospital about 3 weeks ago with a non-ST elevation microinfarction. Cardiac catheterization showed triple-vessel disease. 2-D echo showed an EF of 30-35%.. Patient underwent cardiac bypass yesterday. He was successfully extubated. Yesterday. Sitting up in a recliner. With nasal cannula. Chest tubes in place. Slightly short of breath. Awake Review of systems: GEN.: Tired EYES: None HEENT: None NECK: None RESPIRATORY: Some shortness of breath CARDIOVASCULAR: None GASTROINTESTINAL: None GENITOURINARY: None MUSCULOSKELETAL: None LYMPHATICS: None HEMATOLOGICAL: None PSYCHIATRY: None NEUROLOGICAL: None Past medical history to include: Triple-vessel coronary artery disease, CHF EF 30-35%, diabetes, hypertension, hyperlipidemia Social history: Lives alone. No smoking no alcohol. Physical examination: VITAL SIGNS: 97.8, 76, 16, 91/56, 98% on 2 L GENERAL: BMI 33.9, sitting [id number], awake slightly tired. EYES: Pupils equal. Conjunctiva normal. HEENT: External appearance of nose and ears normal, oral cavity grossly normal. NECK: JVD unable to assess; masses not palpable. HEART: First and second heart sounds are normal; no edema. LUNGS: Respiratory rate increased; decreased breath sounds. CHEST wall: Mediastinal left pleural chest tube ABDOMEN: Soft, nontender, liver spleen not palpable, no masses palpable. Johnston catheter PSYCH: Alert and oriented x3; mood and affect normal. NEUROLOGICAL: Cranial nerves grossly intact; no facial asymmetry, power and sensation grossly intact. LYMPHATICS: No lymph nodes palpable in the axilla and neck INVESTIGATIONS, reviewed in the clinical context: White count and hemoglobin 9.9 platelets 107 potassium 4.6 creatinine 0.5 for Previous testing: White count 9.6 hemoglobin 16 platelets 231 potassium 4.3 creatinine 0.75 2-D echocardiogram-moderate concentric LVH, EF 30-35% Assessment: -Status post but CABG -Acute postprocedure blood loss anemia expected from surgery -Dilutional thrombocytopenia -Diabetes mellitus type 2 on oral hypoglycemic -Essential hypertension -Chronic congestive heart failure from systolic dysfunction EF 30-35% from ischemic heart disease Plan: Patient received IV amiodarone. Currently on Norvasc, aspirin, Lipitor, Plavix, subcu heparin, insulin drip, Lopressor, Protonix. Continue current medication treatment plan. Will follow. [address] Johnston cath in place. Thank you Dr. Hylton Past Medical History Past Medical History: Coronary Artery Disease (CAD), Heart Failure, Diabetes Mellitus, Hyperlipidemia, Hypertension, Myocardial Infarction (ME) Additional Past Medical History / Comment(s): Sinus infections/allergies, recent admission for SOB which is now resolved Last Myocardial Infarction Date:: unknown History of Any Multi-Drug Resistant Organisms: None Reported Past Surgical History: Heart Catheterization Past Anesthesia/Blood Transfusion Reactions: Unable to Obtain Additional Past Anesthesia/Blood Transfusion Reaction / Comm: Pt has never had anesthesia, no family problems w/anesthesia Smoking Status: Never smoker - Past Family History Father Family Medical History: Coronary Artery Disease (CAD), Hyperlipidemia Additional Family Medical History / Comment(s): Father had CABG in his 40s Mother Family Medical History: Neurologic Disorder Additional Family Medical History / Comment(s): Mother of progressive neuropalsy Medications and Allergies Home Medications Medication Instructions Recorded Confirmed Type Atorvastatin [Lipitor] 40 mg PO HS #30 tab 12/08/19 01/04/20 Rx Clopidogrel [Plavix] 75 mg PO DAILY #30 tablet 12/08/19 01/04/20 Rx Furosemide [Lasix] 40 mg PO BID #60 tablet 12/08/19 01/04/20 Rx Nitroglycerin Sl Tabs [Nitrostat] 0.4 mg SUBLINGUAL Q5M PRN #30 tab 12/08/19 01/04/20 Rx Insulin Detemir [Levemir Flextouch] 20 units SQ HS 12/29/19 01/04/20 History Losartan [Cozaar] 25 mg PO DAILY 12/29/19 01/04/20 History Mupirocin 2% Oint [Bactroban 2% 1 applic NASAL BID #1 tube 12/29/19 01/04/20 Rx Oint] carvediloL [Coreg] 12.5 mg PO BID-W/MEALS 12/29/19 01/04/20 History Aspirin 324 mg PO DAILY 01/04/20 01/04/20 History Allergies Allergy/AdvReac Type Severity Reaction Status Date / Time No Known Allergies Allergy Verified 01/04/20 06:17 Physical Exam Vitals: Vital Signs Temp Pulse Pulse Resp BP BP Pulse Ox 01/05/20 09:21 82 01/05/20 09:10 83 96 01/05/20 09:00 82 16 99/64 96 01/05/20 08:00 99.0 F 85 18 102/74 97 01/05/20 06:56 86 20 102/74 96 01/05/20 06:09 99.1 F 85 16 132/91 93 L 01/05/20 04:20 97.7 F 83 11 L 97 01/05/20 02:57 80 12 96 01/05/20 01:00 97.2 F L 85 12 96 01/05/20 00:17 81 8 L 101/73 94 L 01/05/20 00:00 82 14 115/84 95 01/04/20 23:30 81 20 108/78 97 01/04/20 23:00 79 23 126/89 97 01/04/20 22:30 80 16 137/94 97 01/04/20 22:00 81 9 L 114/81 92 L 01/04/20 21:30 81 12 131/91 95 01/04/20 21:00 84 14 106/73 92 L 01/04/20 20:30 83 12 110/74 93 L 01/04/20 20:00 96.8 F L 79 14 106/72 98 01/04/20 19:30 79 12 106/65 85 L 01/04/20 19:15 80 20 111/70 91 L 01/04/20 19:11 80 01/04/20 19:00 85 18 110/73 90 L 01/04/20 18:45 89 16 104/65 90 L 01/04/20 18:30 81 22 111/67 90 L 01/04/20 18:15 80 15 136/101 90 L 01/04/20 18:00 80 16 145/91 93 L 01/04/20 17:45 64 15 114/87 91 L 01/04/20 17:30 73 16 85/57 94 L 01/04/20 17:15 70 14 154/106 94 L 01/04/20 17:00 73 16 100/67 96 01/04/20 16:45 71 14 106/65 01/04/20 16:30 71 13 181/117 01/04/20 16:15 79 16 01/04/20 16:06 95.7 F L 79 16 96 Intake and Output 01/04/20 01/05/20 01/05/20 22:59 06:59 14:59 Intake Total 1240.969 798.287 412.35 Output Total 3309 550 200 Balance -2068.031 248.287 212.35 Intake: IV 322.87 768.87 284.3 ACETAMINOPHEN IV (For NPO 0 ) 1,000 mg In Empty Bag 1 bag @ 400 mls/hr IVPB Q6HR [facility] Rx#:[id number] Albumin Human 5% 250 ml 250 In Empty Bag 1 bag @ 250 mls/hr IVPB Q1HR PRN Rx#: [id number] CO/CI 60 70 40 Milrinone-D5w Pmx 20 mg 8.37 8.37 2.8 In Dextrose/Water 1 100ml .bag @ 0.1 MCG/KG/MIN 2. 79 mls/hr IV .Q24H [facility] Rx #:[id number] Nitroglycerin-D5w Pmx 50 4.5 4.5 1.5 mg In Dextrose/Water 1 250ml.bag @ 5 MCG/MIN 1.5 mls/hr IV .Q24H [facility] Rx#: [id number] Potassium Chloride 20 meq 100 In Water For Injection 1 100ml.bag @ 50 mls/hr IVPB Q2H [facility] Rx#: [id number] Sodium Chloride 0.9% 1, 150 350 110 000 ml @ 20 mls/hr IV . Q24H [facility] Rx#:[id number] ceFAZolin 2 gm In Sodium 0 50 100 Chloride 0.9% 50 ml @ 100 mls/hr IVPB Q8HR [facility] Rx# :[id number] pressure bag 36 30 Intake, IV Titration 918.099 29.417 8.05 Amount Albumin Human 5% 250 ml 500 In Empty Bag 1 bag @ 250 mls/hr IVPB Q1HR PRN Rx#: [id number] Clevidipine Butyrate 25 8.433 10.267 mg In Empty Bag 1 bag @ 1 MG/HR 2 mls/hr IV .Q24H [facility] Rx#:[id number] Insulin Regular 100 unit 9.666 19.150 8.05 In Sodium Chloride 0.9% 100 ml @ Per Protocol IV .Q0M [facility] Rx#:[id number] Potassium Chloride 20 meq 100 In Water For Injection 1 100ml.bag @ 50 mls/hr IVPB Q2H [facility] Rx#: [id number] Sodium Chloride 0.9% 1, 200 000 ml @ 20 mls/hr IV . Q24H [facility] Rx#:[id number] ceFAZolin 2 gm In Sodium 100 Chloride 0.9% 50 ml @ 100 mls/hr IVPB Q8HR [facility] Rx# :[id number] Oral 120 Output: Chest Tube Drainage 865 315 80 Left Pleural 575 120 20 Mediastinal 290 195 60 Drainage 20 Left Wrist 20 Urine 944 215 120 Estimated Blood Loss 1500 Other: Voiding Method Indwelling Catheter Indwelling Catheter Indwelling Catheter Weight 101 kg 101 kg ABP, PAP, CO, CI - Last 8 Hours Arterial Blood Pressure 96/63 Arterial Blood Pressure 89/54 Arterial Blood Pressure 113/66 Arterial Blood Pressure 110/70 Arterial Blood Pressure 111/61 Arterial Blood Pressure 105/65 Pulmonary Artery Pressure 21/9 Pulmonary Artery Pressure 22/11 Pulmonary Artery Pressure 21/18 Pulmonary Artery Pressure 30/14 Cardiac Output 6.4 Cardiac Output 7.3 Cardiac Output 6.4 Cardiac Index 3.1 Cardiac Index 3.5 Cardiac Index 3.1 Results CBC & Chem 7: 01/05/20 04:00 01/05/20 04:00 Labs: Abnormal Lab Results - Last 24 Hours (Table) 12/29/19 01/04/20 01/04/20 Range/Units 12:13 10:10 10:12 WBC (3.8-10.6) k/uL RBC (4.30-5.90) m/uL Hgb (13.0-17.5) gm/dL Hct (39.0-53.0) % Plt Count (150-450) k/uL Neutrophils # (1.3-7.7) k/uL Lymphocytes # (1.0-4.8) k/uL INR (<1.2) ABG pH (7.35-7.45) ABG pCO2 34 L 34 L (35-45) mmHg ABG pO2 116 H 122 H (83-108) mmHg ABG Total CO2 (19-24) mmol/L ABG O2 Saturation 99.9 H 99.0 H (94-97) % ABG Hematocrit (34.0-46.0) % ABG Ionized Calcium (4.5-5.3) mg/dL ABG Glucose 168 H 165 H (75-99) mg/dL ABG Lactic Acid (0.5-1.6) mmol/L Hemoglobin (13.0-17.5) gm/dL Chloride (98-107) mmol/L Carbon Dioxide (22-30) mmol/L Creatinine (0.66-1.25) mg/dL Glucose (74-99) mg/dL POC Glucose (mg/dL) (75-99) mg/dL Calcium (8.4-10.2) mg/dL Magnesium (1.6-2.3) mg/dL Total Protein (6.3-8.2) g/dL Albumin (3.5-5.0) g/dL Arterial Blood Glucose 168 H 165 H (75-99) mg/dL Crossmatch See Detail 01/04/20 01/04/20 01/04/20 Range/Units 12:19 13:00 13:20 WBC (3.8-10.6) k/uL RBC (4.30-5.90) m/uL Hgb (13.0-17.5) gm/dL Hct (39.0-53.0) % Plt Count (150-450) k/uL Neutrophils # (1.3-7.7) k/uL Lymphocytes # (1.0-4.8) k/uL INR (<1.2) ABG pH (7.35-7.45) ABG pCO2 (35-45) mmHg ABG pO2 262 H 178 H 337 H (83-108) mmHg ABG Total CO2 26 H (19-24) mmol/L ABG O2 Saturation 100.0 H 99.6 H 100.0 H (94-97) % ABG Hematocrit 32 L (34.0-46.0) % ABG Ionized Calcium 4.1 L (4.5-5.3) mg/dL ABG Glucose 180 H 172 H 153 H (75-99) mg/dL ABG Lactic Acid (0.5-1.6) mmol/L Hemoglobin 12.7 L 10.5 L (13.0-17.5) gm/dL Chloride (98-107) mmol/L Carbon Dioxide (22-30) mmol/L Creatinine (0.66-1.25) mg/dL Glucose (74-99) mg/dL POC Glucose (mg/dL) (75-99) mg/dL Calcium (8.4-10.2) mg/dL Magnesium (1.6-2.3) mg/dL Total Protein (6.3-8.2) g/dL Albumin (3.5-5.0) g/dL Arterial Blood Glucose 180 H 172 H 153 H (75-99) mg/dL Crossmatch 01/04/20 01/04/20 01/04/20 Range/Units 13:20 13:40 13:59 WBC (3.8-10.6) k/uL RBC (4.30-5.90) m/uL Hgb (13.0-17.5) gm/dL Hct (39.0-53.0) % Plt Count (150-450) k/uL Neutrophils # (1.3-7.7) k/uL Lymphocytes # (1.0-4.8) k/uL INR (<1.2) ABG pH (7.35-7.45) ABG pCO2 (35-45) mmHg ABG pO2 315 H 406 H 397 H (83-108) mmHg ABG Total CO2 26 H 26 H 26 H (19-24) mmol/L ABG O2 Saturation 99.9 H 100.0 H 100.0 H (94-97) % ABG Hematocrit 31 L 31 L 31 L (34.0-46.0) % ABG Ionized Calcium 4.4 L 4.3 L (4.5-5.3) mg/dL ABG Glucose 231 H 245 H 241 H (75-99) mg/dL ABG Lactic Acid (0.5-1.6) mmol/L Hemoglobin 9.9 L 10.1 L 10.0 L (13.0-17.5) gm/dL Chloride (98-107) mmol/L Carbon Dioxide (22-30) mmol/L Creatinine (0.66-1.25) mg/dL Glucose (74-99) mg/dL POC Glucose (mg/dL) (75-99) mg/dL Calcium (8.4-10.2) mg/dL Magnesium (1.6-2.3) mg/dL Total Protein (6.3-8.2) g/dL Albumin (3.5-5.0) g/dL Arterial Blood Glucose 231 H 245 H 241 H (75-99) mg/dL Crossmatch 01/04/20 01/04/20 01/04/20 Range/Units 14:25 15:06 15:51 WBC (3.8-10.6) k/uL RBC (4.30-5.90) m/uL Hgb (13.0-17.5) gm/dL Hct (39.0-53.0) % Plt Count (150-450) k/uL Neutrophils # (1.3-7.7) k/uL Lymphocytes # (1.0-4.8) k/uL INR (<1.2) ABG pH 7.32 L 7.31 L 7.32 L (7.35-7.45) ABG pCO2 47 H 47 H 47 H (35-45) mmHg ABG pO2 347 H 76 L 178 H (83-108) mmHg ABG Total CO2 26 H 25 H 26 H (19-24) mmol/L ABG O2 Saturation 99.9 H 100.0 H (94-97) % ABG Hematocrit 30 L 32 L (34.0-46.0) % ABG Ionized Calcium (4.5-5.3) mg/dL ABG Glucose 214 H 170 H (75-99) mg/dL ABG Lactic Acid 2.1 H (0.5-1.6) mmol/L Hemoglobin 9.6 L 10.3 L (13.0-17.5) gm/dL Chloride (98-107) mmol/L Carbon Dioxide (22-30) mmol/L Creatinine (0.66-1.25) mg/dL Glucose (74-99) mg/dL POC Glucose (mg/dL) (75-99) mg/dL Calcium (8.4-10.2) mg/dL Magnesium (1.6-2.3) mg/dL Total Protein (6.3-8.2) g/dL Albumin (3.5-5.0) g/dL Arterial Blood Glucose 214 H 170 H (75-99) mg/dL Crossmatch 11/04/20 11/04/20 11/04/20 Range/Units 16:10 16:10 16:10 WBC 11.4 H (3.8-10.6) k/uL RBC 3.39 L (4.30-5.90) m/uL Hgb 10.5 L D (13.0-17.5) gm/dL Hct 31.3 L (39.0-53.0) % Plt Count 120 L (150-450) k/uL Neutrophils # 9.6 H (1.3-7.7) k/uL Lymphocytes # (1.0-4.8) k/uL INR 1.2 H (<1.2) ABG pH (7.35-7.45) ABG pCO2 (35-45) mmHg ABG pO2 (83-108) mmHg ABG Total CO2 (19-24) mmol/L ABG O2 Saturation (94-97) % ABG Hematocrit (34.0-46.0) % ABG Ionized Calcium (4.5-5.3) mg/dL ABG Glucose (75-99) mg/dL ABG Lactic Acid (0.5-1.6) mmol/L Hemoglobin (13.0-17.5) gm/dL Chloride 112 H (98-107) mmol/L Carbon Dioxide (22-30) mmol/L Creatinine 0.50 L (0.66-1.25) mg/dL Glucose 120 H (74-99) mg/dL POC Glucose (mg/dL) (75-99) mg/dL Calcium 8.2 L (8.4-10.2) mg/dL Magnesium 2.5 H (1.6-2.3) mg/dL Total Protein 4.7 L (6.3-8.2) g/dL Albumin 2.7 L (3.5-5.0) g/dL Arterial Blood Glucose (75-99) mg/dL Crossmatch 01/04/20 01/04/20 01/04/20 Range/Units 16:15 16:39 17:09 WBC (3.8-10.6) k/uL RBC (4.30-5.90) m/uL Hgb (13.0-17.5) gm/dL Hct (39.0-53.0) % Plt Count (150-450) k/uL Neutrophils # (1.3-7.7) k/uL Lymphocytes # (1.0-4.8) k/uL INR (<1.2) ABG pH (7.35-7.45) ABG pCO2 (35-45) mmHg ABG pO2 (83-108) mmHg ABG Total CO2 (19-24) mmol/L ABG O2 Saturation (94-97) % ABG Hematocrit (34.0-46.0) % ABG Ionized Calcium (4.5-5.3) mg/dL ABG Glucose (75-99) mg/dL ABG Lactic Acid (0.5-1.6) mmol/L Hemoglobin (13.0-17.5) gm/dL Chloride (98-107) mmol/L Carbon Dioxide (22-30) mmol/L Creatinine (0.66-1.25) mg/dL Glucose (74-99) mg/dL POC Glucose (mg/dL) 126 H 116 H 104 H (75-99) mg/dL Calcium (8.4-10.2) mg/dL Magnesium (1.6-2.3) mg/dL Total Protein (6.3-8.2) g/dL Albumin (3.5-5.0) g/dL Arterial Blood Glucose (75-99) mg/dL Crossmatch 01/04/20 01/04/20 01/04/20 Range/Units 18:09 18:44 18:59 WBC (3.8-10.6) k/uL RBC (4.30-5.90) m/uL Hgb (13.0-17.5) gm/dL Hct (39.0-53.0) % Plt Count (150-450) k/uL Neutrophils # (1.3-7.7) k/uL Lymphocytes # (1.0-4.8) k/uL INR (<1.2) ABG pH (7.35-7.45) ABG pCO2 (35-45) mmHg ABG pO2 64 L (83-108) mmHg ABG Total CO2 (19-24) mmol/L ABG O2 Saturation 93.6 L (94-97) % ABG Hematocrit (34.0-46.0) % ABG Ionized Calcium (4.5-5.3) mg/dL ABG Glucose (75-99) mg/dL ABG Lactic Acid (0.5-1.6) mmol/L Hemoglobin (13.0-17.5) gm/dL Chloride (98-107) mmol/L Carbon Dioxide (22-30) mmol/L Creatinine (0.66-1.25) mg/dL Glucose (74-99) mg/dL POC Glucose (mg/dL) 138 H 158 H (75-99) mg/dL Calcium (8.4-10.2) mg/dL Magnesium (1.6-2.3) mg/dL Total Protein (6.3-8.2) g/dL Albumin (3.5-5.0) g/dL Arterial Blood Glucose (75-99) mg/dL Crossmatch 01/04/20 01/04/20 01/04/20 Range/Units 19:35 19:59 21:12 WBC 14.5 H (3.8-10.6) k/uL RBC 3.60 L (4.30-5.90) m/uL Hgb 10.9 L (13.0-17.5) gm/dL Hct 33.0 L (39.0-53.0) % Plt Count 133 L (150-450) k/uL Neutrophils # 12.8 H (1.3-7.7) k/uL Lymphocytes # 0.8 L (1.0-4.8) k/uL INR (<1.2) ABG pH (7.35-7.45) ABG pCO2 (35-45) mmHg ABG pO2 (83-108) mmHg ABG Total CO2 (19-24) mmol/L ABG O2 Saturation (94-97) % ABG Hematocrit (34.0-46.0) % ABG Ionized Calcium (4.5-5.3) mg/dL ABG Glucose (75-99) mg/dL ABG Lactic Acid (0.5-1.6) mmol/L Hemoglobin (13.0-17.5) gm/dL Chloride (98-107) mmol/L Carbon Dioxide (22-30) mmol/L Creatinine (0.66-1.25) mg/dL Glucose (74-99) mg/dL POC Glucose (mg/dL) 160 H 150 H (75-99) mg/dL Calcium (8.4-10.2) mg/dL Magnesium (1.6-2.3) mg/dL Total Protein (6.3-8.2) g/dL Albumin (3.5-5.0) g/dL Arterial Blood Glucose (75-99) mg/dL Crossmatch 01/04/20 01/04/20 01/05/20 Range/Units 22:12 23:08 00:08 WBC (3.8-10.6) k/uL RBC (4.30-5.90) m/uL Hgb (13.0-17.5) gm/dL Hct (39.0-53.0) % Plt Count (150-450) k/uL Neutrophils # (1.3-7.7) k/uL Lymphocytes # (1.0-4.8) k/uL INR (<1.2) ABG pH (7.35-7.45) ABG pCO2 (35-45) mmHg ABG pO2 (83-108) mmHg ABG Total CO2 (19-24) mmol/L ABG O2 Saturation (94-97) % ABG Hematocrit (34.0-46.0) % ABG Ionized Calcium (4.5-5.3) mg/dL ABG Glucose (75-99) mg/dL ABG Lactic Acid (0.5-1.6) mmol/L Hemoglobin (13.0-17.5) gm/dL Chloride (98-107) mmol/L Carbon Dioxide (22-30) mmol/L Creatinine (0.66-1.25) mg/dL Glucose (74-99) mg/dL POC Glucose (mg/dL) 141 H 141 H 123 H (75-99) mg/dL Calcium (8.4-10.2) mg/dL Magnesium (1.6-2.3) mg/dL Total Protein (6.3-8.2) g/dL Albumin (3.5-5.0) g/dL Arterial Blood Glucose (75-99) mg/dL Crossmatch 01/05/20 01/05/20 01/05/20 Range/Units 02:12 03:05 04:00 WBC (3.8-10.6) k/uL RBC 3.25 L (4.30-5.90) m/uL Hgb 9.9 L (13.0-17.5) gm/dL Hct 30.0 L (39.0-53.0) % Plt Count 107 L (150-450) k/uL Neutrophils # 8.7 H (1.3-7.7) k/uL Lymphocytes # 0.7 L (1.0-4.8) k/uL INR (<1.2) ABG pH (7.35-7.45) ABG pCO2 (35-45) mmHg ABG pO2 (83-108) mmHg ABG Total CO2 (19-24) mmol/L ABG O2 Saturation (94-97) % ABG Hematocrit (34.0-46.0) % ABG Ionized Calcium (4.5-5.3) mg/dL ABG Glucose (75-99) mg/dL ABG Lactic Acid (0.5-1.6) mmol/L Hemoglobin (13.0-17.5) gm/dL Chloride (98-107) mmol/L Carbon Dioxide (22-30) mmol/L Creatinine (0.66-1.25) mg/dL Glucose (74-99) mg/dL POC Glucose (mg/dL) 108 H 112 H (75-99) mg/dL Calcium (8.4-10.2) mg/dL Magnesium (1.6-2.3) mg/dL Total Protein (6.3-8.2) g/dL Albumin (3.5-5.0) g/dL Arterial Blood Glucose (75-99) mg/dL Crossmatch 01/05/20 01/05/20 01/05/20 Range/Units 04:00 04:05 05:48 WBC (3.8-10.6) k/uL RBC (4.30-5.90) m/uL Hgb (13.0-17.5) gm/dL Hct (39.0-53.0) % Plt Count (150-450) k/uL Neutrophils # (1.3-7.7) k/uL Lymphocytes # (1.0-4.8) k/uL INR (<1.2) ABG pH (7.35-7.45) ABG pCO2 (35-45) mmHg ABG pO2 (83-108) mmHg ABG Total CO2 (19-24) mmol/L ABG O2 Saturation (94-97) % ABG Hematocrit (34.0-46.0) % ABG Ionized Calcium (4.5-5.3) mg/dL ABG Glucose (75-99) mg/dL ABG Lactic Acid (0.5-1.6) mmol/L Hemoglobin (13.0-17.5) gm/dL Chloride 112 H (98-107) mmol/L Carbon Dioxide 20 L (22-30) mmol/L Creatinine 0.54 L (0.66-1.25) mg/dL Glucose 118 H (74-99) mg/dL POC Glucose (mg/dL) 117 H 124 H (75-99) mg/dL Calcium (8.4-10.2) mg/dL Magnesium (1.6-2.3) mg/dL Total Protein 5.2 L (6.3-8.2) g/dL Albumin 3.2 L (3.5-5.0) g/dL Arterial Blood Glucose (75-99) mg/dL Crossmatch 01/05/20 01/05/20 01/05/20 Range/Units 06:57 09:12 10:19 WBC (3.8-10.6) k/uL RBC (4.30-5.90) m/uL Hgb (13.0-17.5) gm/dL Hct (39.0-53.0) % Plt Count (150-450) k/uL Neutrophils # (1.3-7.7) k/uL Lymphocytes # (1.0-4.8) k/uL INR (<1.2) ABG pH (7.35-7.45) ABG pCO2 (35-45) mmHg ABG pO2 (83-108) mmHg ABG Total CO2 (19-24) mmol/L ABG O2 Saturation (94-97) % ABG Hematocrit (34.0-46.0) % ABG Ionized Calcium (4.5-5.3) mg/dL ABG Glucose (75-99) mg/dL ABG Lactic Acid (0.5-1.6) mmol/L Hemoglobin (13.0-17.5) gm/dL Chloride (98-107) mmol/L Carbon Dioxide (22-30) mmol/L Creatinine (0.66-1.25) mg/dL Glucose (74-99) mg/dL POC Glucose (mg/dL) 128 H 247 H 229 H (75-99) mg/dL Calcium (8.4-10.2) mg/dL Magnesium (1.6-2.3) mg/dL Total Protein (6.3-8.2) g/dL Albumin (3.5-5.0) g/dL Arterial Blood Glucose (75-99) mg/dL Crossmatch
[2020-01-05 17:22] LABS: Glucose,Whole Blood 144 mg/dL (75-99)
[2020-01-05] MEDS: amLODIPine 2.5 MG TAB PO SCH (17:23)
[2020-01-05 18:50] LABS: Glucose,Whole Blood 192 mg/dL (75-99)
[2020-01-05] MEDS: SENNOSIDES-DOCUSATE SODIUM 1 EACH TAB PO SCH (20:36)
[2020-01-05 20:43] LABS: Glucose,Whole Blood 127 mg/dL (75-99)
[2020-01-05 21:55] LABS: Glucose,Whole Blood 116 mg/dL (75-99)
[2020-01-05] MEDS: MECLIZINE 25 MG TAB PO PRN (22:19)
[2020-01-05] MEDS ORDERED: FUROSEMIDE 10 MG/ML 2 ML VIAL IV ONE (22:27)
[2020-01-06] MEDS: KETOROLAC 15 MG/ML 1 ML VIAL IVP SCH ×4 (00:33→17:11)
[2020-01-06] MEDS: HEPARIN SODIUM,PORCINE 5,000 UNIT/ML 1 ML VIAL SQ SCH ×3 (00:34→15:30)
[2020-01-06 02:04] LABS: Glucose,Whole Blood 148 mg/dL (75-99)
[2020-01-06 03:37] LABS: Glucose,Whole Blood 132 mg/dL (75-99)
[2020-01-06] MEDS: INSULIN REGULAR 100 UNIT in SODIUM CHLORIDE 0.9% 100 ML IV SCH (03:37)
[2020-01-06 04:13] LABS: Ionized Calcium 4.9 mg/dL (4.5-5.3)
[2020-01-06 04:20] LABS: Basophils % (A) 0 %; Eosinophils # (A) 0.3 k/uL (0-0.7); Eosinophils % (A) 3 %; HGB 8.8 gm/dL (13.0-17.5); Lymphocytes # (A) 1.6 k/uL (1.0-4.8); Lymphocytes % (A) 17 %; MCH 30.1 pg (25.0-35.0); MCHC 32.6 g/dL (31.0-37.0); MCV 92.2 fL (80.0-100.0); Mean Platelet Volume 11.1; Monocytes # (A) 0.5 k/uL (0-1.0); Monocytes % (A) 5 %; Neutrophils # (A) 7.1 k/uL (1.3-7.7); Neutrophils % (A) 74 %; Platelet Count 112 k/uL (150-450); RBC 2.93 m/uL (4.30-5.90); RDW 14.3 % (11.5-15.5); WBC 9.6 k/uL (3.8-10.6)
[2020-01-06 04:21] LABS: ALT 11 U/L (4-49); AST 27 U/L (17-59); African American GFR (CKD) >90 (>60 ml/min/1.73 sqM); Albumin 3.1 g/dL (3.5-5.0); Alkaline Phosphatase 46 U/L (38-126); Anion Gap 5 mmol/L; Blood Urea Nitrogen 17 mg/dL (9-20); Calcium 8.5 mg/dL (8.4-10.2); Carbon Dioxide 22 mmol/L (22-30); Chloride 111 mmol/L (98-107); Glucose 129 mg/dL (74-99); Non-African American GFR(CKD) >90 (>60 ml/min/1.73 sqM); Sodium 138 mmol/L (137-145); Total Bilirubin 0.8 mg/dL (0.2-1.3); Total Protein 5.2 g/dL (6.3-8.2)
[2020-01-06] MEDS: HYDROcodone/APAP 5-325MG 1 EACH TAB PO PRN ×3 (05:14→21:07)
[2020-01-06] MEDS: METOCLOPRAMIDE 5 MG/ML 2 ML VIAL IVP PRN (05:14)
[2020-01-06] MEDS: PANTOPRAZOLE 40 MG TABLET PO SCH (06:02)
[2020-01-06 06:11] LABS: Glucose,Whole Blood 134 mg/dL (75-99)
[2020-01-06] MEDS: IPRATROPIUM-ALBUTEROL 3 ML NEB INHALATION SCH ×4 (07:25→21:47)
[2020-01-06] MEDS: ASPIRIN 325 MG TAB PO SCH (08:07)
[2020-01-06] MEDS: CLOPIDOGREL 75 MG TAB PO SCH (08:07)
[2020-01-06] MEDS: METOPROLOL TARTRATE 12.5 MG TAB PO SCH ×2 (08:07→21:07)
[2020-01-06] MEDS: ATORVASTATIN 40 MG TAB PO SCH (08:07)
--- NOTE | 2020-01-06 08:17 | P.PN ---
<Antonieta Fu - Last Filed: 01/06/20 08:52> Subjective Progress Note Date: 01/06/20 Principal diagnosis: Triple-vessel coronary artery disease with totally occluded obtuse marginal artery and right coronary artery with evidence of old posterolateral myocardial infarction, moderate left ventricular dysfunction with EF estimated at 30%. Previous medical history of recent non-STEMI, recent admission for acute systolic heart failure, hypertension, hyperlipidemia, uncontrolled type 2 diabetes mellitus with hyperglycemia and preoperative hemoglobin A1c 10.8%, obesity, vertigo, and family history of premature coronary artery disease with father having had CABG in his 40s. POD #2 triple coronary artery bypass grafting using the left internal mammary artery to the left anterior descending artery, left radial artery from the aorta to the ramus intermedius artery, reverse saphenous vein graft from the aorta to the posterior descending artery, exclusion of the left atrial appendage using a 35 mm AtriClip, intraoperative transesophageal echocardiogram and epi-aortic scanning, endoscopic harvesting of the left radial artery, endoscopic harvesting of the left greater saphenous vein from the groin to above the ankle level, intraoperative graft flow measurements using the [employer] system. Postoperative acute blood loss anemia and thrombocytopenia, expected, dilutional The patient's currently sitting up in a recliner in no acute distress in the ICU. He states pain is controlled on current medication regimen, denies shortness of breath. Continues to have occasional bouts of nausea controlled with zofran. Remains in normal sinus rhythm and hemodynamically stable on no inotropes or pressors. Right internal jugular Cordis, right radial arterial line, mediastinal and left pleural chest tubes all present. Ambulated in the hallway yesterday multiple times without difficulty. No new concerns. Objective - Vital Signs Vital signs: Vital Signs Temp 98.1 F 01/06/20 04:00 Pulse 77 01/06/20 07:45 Resp 13 01/06/20 07:00 BP 114/81 01/06/20 07:00 Pulse Ox 95 01/06/20 07:00 Intake & Output 01/05/20 01/06/20 01/06/20 18:59 06:59 18:59 Intake Total 769.741 578.200 26 Output Total 450 515 30 Balance 319.741 63.200 -4 Weight 101 kg 99 kg Intake: IV 492.3 562 26 Albumin 250 CO/CI 40 Milrinone-D5w Pmx 20 mg 2.8 In Dextrose/Water 1 100ml .bag @ 0.1 MCG/KG/MIN 2. 79 mls/hr IV .Q24H [facility] Rx #:[id number] Nitroglycerin-D5w Pmx 50 1.5 mg In Dextrose/Water 1 250ml.bag @ 5 MCG/MIN 1.5 mls/hr IV .Q24H [facility] Rx#: [id number] Sodium Chloride 0.9% 1, 270 240 20 000 ml @ 20 mls/hr IV . Q24H [facility] Rx#:[id number] ceFAZolin 2 gm In Sodium 100 Chloride 0.9% 50 ml @ 100 mls/hr IVPB Q8HR [facility] Rx# :[id number] pressure bag 78 72 6 Intake, IV Titration 37.441 16.200 Amount Insulin Regular 100 unit 37.441 16.200 In Sodium Chloride 0.9% 100 ml @ Per Protocol IV .Q0M [facility] Rx#:[id number] Oral 240 Output: Chest Tube Drainage 150 120 20 Left Pleural 50 90 20 Mediastinal 100 30 0 Drainage 10 Left Wrist 10 Urine 290 395 10 Other: Voiding Method Indwelling Catheter Indwelling Catheter ABP, PAP, CO, CI - Last Documented Arterial Blood Pressure 109/58 Pulmonary Artery Pressure 21/9 Cardiac Output 6.4 Cardiac Index 3.1 - Constitutional General appearance: Present: cooperative, no acute distress, obese - Respiratory Details: Lungs sounds diminished bilaterally. Respirations even, nonlabored. Currently on room air with oxygen saturation 97%. Able to achieve 750 mL on his incentive spirometry. Strong cough. Mediastinal chest tube present to continuous wall suction, 30 mL serosanguineous drainage overnight, 100 mL in the last 24 hours, no air leak present. Left pleural chest tube present to continuous wall suction, 90 mL serosanguineous drainage overnight, 200 mL in the last 24 hours, no air leak present. - Cardiovascular Details: S1, S2 present. Regular rate and rhythm, sinus rhythm on telemetry. Sternum stable. Palpable peripheral pulses bilaterally. No edema present. No calf pain or tenderness noted. Heart hugger in place with patient demonstrating appropriate use. Antiembolism stockings, SCDs present. Right internal jugular Cordis, right radial arterial line present. - Gastrointestinal Gastrointestinal Comment(s): Abdomen soft, nontender, nondistended. Active bowel sounds present 4 quadrants. Tolerating full liquids. Positive flatus. - Genitourinary Genitourinary Comment(s): Johnston present draining clear, yellow urine. Output 20-50 mL/h overnight. - Integumentary Integumentary Comment(s): Skin is warm and dry with evidence of good perfusion. Anterior chest incision well approximated and covered with dry intact dressing. Left radial artery harvest site well approximated. 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 Left lower extremity EVH site well approximated without redness or drainage. - Neurologic Neurologic: Present: CNII-XII intact - Musculoskeletal Musculoskeletal: Present: gait normal, strength equal bilaterally - Psychiatric Psychiatric: Present: A&O x's 3, appropriate affect, intact judgment & insight - Allied health notes Allied health notes reviewed: nursing - Labs CBC & Chem 7: 01/06/20 03:50 01/06/20 03:50 Labs: Abnormal Lab Results - Last 24 Hours (Table) 01/04/20 01/04/20 01/04/20 Range/Units 09:10 09:12 11:19 RBC (4.30-5.90) m/uL Hgb (13.0-17.5) gm/dL Hct (39.0-53.0) % Plt Count (150-450) k/uL ABG pCO2 34 L 34 L (35-45) mmHg ABG pO2 116 H 122 H 262 H (83-108) mmHg ABG Total CO2 (19-24) mmol/L ABG O2 Saturation 99.9 H 99.0 H 100.0 H (94-97) % ABG Hematocrit (34.0-46.0) % ABG Ionized Calcium (4.5-5.3) mg/dL ABG Glucose 168 H 165 H 180 H (75-99) mg/dL Hemoglobin (13.0-17.5) gm/dL Chloride (98-107) mmol/L Glucose (74-99) mg/dL POC Glucose (mg/dL) (75-99) mg/dL Total Protein (6.3-8.2) g/dL Albumin (3.5-5.0) g/dL Arterial Blood Glucose 168 H 165 H 180 H (75-99) mg/dL 01/04/20 01/04/2020 Range/Units 12:00 12:20 12:40 RBC (4.30-5.90) m/uL Hgb (13.0-17.5) gm/dL Hct (39.0-53.0) % Plt Count (150-450) k/uL ABG pCO2 (35-45) mmHg ABG pO2 178 H 337 H 406 H (83-108) mmHg ABG Total CO2 26 H 26 H (19-24) mmol/L ABG O2 Saturation 99.6 H 100.0 H 100.0 H (94-97) % ABG Hematocrit 32 L 31 L (34.0-46.0) % ABG Ionized Calcium 4.1 L 4.4 L (4.5-5.3) mg/dL ABG Glucose 172 H 153 H 245 H (75-99) mg/dL Hemoglobin 12.7 L 10.5 L 10.1 L (13.0-17.5) gm/dL Chloride (98-107) mmol/L Glucose (74-99) mg/dL POC Glucose (mg/dL) (75-99) mg/dL Total Protein (6.3-8.2) g/dL Albumin (3.5-5.0) g/dL Arterial Blood Glucose 172 H 153 H 245 H (75-99) mg/dL 01/04/20 01/05/20 01/05/20 Range/Units 12:59 09:12 10:19 RBC (4.30-5.90) m/uL Hgb (13.0-17.5) gm/dL Hct (39.0-53.0) % Plt Count (150-450) k/uL ABG pCO2 (35-45) mmHg ABG pO2 397 H (83-108) mmHg ABG Total CO2 26 H (19-24) mmol/L ABG O2 Saturation 100.0 H (94-97) % ABG Hematocrit 31 L (34.0-46.0) % ABG Ionized Calcium 4.3 L (4.5-5.3) mg/dL ABG Glucose 241 H (75-99) mg/dL Hemoglobin 10.0 L (13.0-17.5) gm/dL Chloride (98-107) mmol/L Glucose (74-99) mg/dL POC Glucose (mg/dL) 247 H 229 H (75-99) mg/dL Total Protein (6.3-8.2) g/dL Albumin (3.5-5.0) g/dL Arterial Blood Glucose 241 H (75-99) mg/dL 01/05/20 01/05/20 01/05/20 Range/Units 11:18 12:24 13:44 RBC (4.30-5.90) m/uL Hgb (13.0-17.5) gm/dL Hct (39.0-53.0) % Plt Count (150-450) k/uL ABG pCO2 (35-45) mmHg ABG pO2 (83-108) mmHg ABG Total CO2 (19-24) mmol/L ABG O2 Saturation (94-97) % ABG Hematocrit (34.0-46.0) % ABG Ionized Calcium (4.5-5.3) mg/dL ABG Glucose (75-99) mg/dL Hemoglobin (13.0-17.5) gm/dL Chloride (98-107) mmol/L Glucose (74-99) mg/dL POC Glucose (mg/dL) 198 H 161 H 127 H (75-99) mg/dL Total Protein (6.3-8.2) g/dL Albumin (3.5-5.0) g/dL Arterial Blood Glucose (75-99) mg/dL 01/05/20 01/05/20 01/05/20 Range/Units 14:58 16:08 17:21 RBC (4.30-5.90) m/uL Hgb (13.0-17.5) gm/dL Hct (39.0-53.0) % Plt Count (150-450) k/uL ABG pCO2 (35-45) mmHg ABG pO2 (83-108) mmHg ABG Total CO2 (19-24) mmol/L ABG O2 Saturation (94-97) % ABG Hematocrit (34.0-46.0) % ABG Ionized Calcium (4.5-5.3) mg/dL ABG Glucose (75-99) mg/dL Hemoglobin (13.0-17.5) gm/dL Chloride (98-107) mmol/L Glucose (74-99) mg/dL POC Glucose (mg/dL) 134 H 132 H 144 H (75-99) mg/dL Total Protein (6.3-8.2) g/dL Albumin (3.5-5.0) g/dL Arterial Blood Glucose (75-99) mg/dL 01/05/20 01/05/20 01/05/20 Range/Units 18:48 20:42 21:54 RBC (4.30-5.90) m/uL Hgb (13.0-17.5) gm/dL Hct (39.0-53.0) % Plt Count (150-450) k/uL ABG pCO2 (35-45) mmHg ABG pO2 (83-108) mmHg ABG Total CO2 (19-24) mmol/L ABG O2 Saturation (94-97) % ABG Hematocrit (34.0-46.0) % ABG Ionized Calcium (4.5-5.3) mg/dL ABG Glucose (75-99) mg/dL Hemoglobin (13.0-17.5) gm/dL Chloride (98-107) mmol/L Glucose (74-99) mg/dL POC Glucose (mg/dL) 192 H 127 H 116 H (75-99) mg/dL Total Protein (6.3-8.2) g/dL Albumin (3.5-5.0) g/dL Arterial Blood Glucose (75-99) mg/dL 01/06/20 01/06/20 01/06/20 Range/Units 02:02 03:35 03:50 RBC 2.93 L (4.30-5.90) m/uL Hgb 8.8 L (13.0-17.5) gm/dL Hct 27.0 L (39.0-53.0) % Plt Count 112 L (150-450) k/uL ABG pCO2 (35-45) mmHg ABG pO2 (83-108) mmHg ABG Total CO2 (19-24) mmol/L ABG O2 Saturation (94-97) % ABG Hematocrit (34.0-46.0) % ABG Ionized Calcium (4.5-5.3) mg/dL ABG Glucose (75-99) mg/dL Hemoglobin (13.0-17.5) gm/dL Chloride (98-107) mmol/L Glucose (74-99) mg/dL POC Glucose (mg/dL) 148 H 132 H (75-99) mg/dL Total Protein (6.3-8.2) g/dL Albumin (3.5-5.0) g/dL Arterial Blood Glucose (75-99) mg/dL 01/06/20 01/06/20 Range/Units 03:50 06:10 RBC (4.30-5.90) m/uL Hgb (13.0-17.5) gm/dL Hct (39.0-53.0) % Plt Count (150-450) k/uL ABG pCO2 (35-45) mmHg ABG pO2 (83-108) mmHg ABG Total CO2 (19-24) mmol/L ABG O2 Saturation (94-97) % ABG Hematocrit (34.0-46.0) % ABG Ionized Calcium (4.5-5.3) mg/dL ABG Glucose (75-99) mg/dL Hemoglobin (13.0-17.5) gm/dL Chloride 111 H (98-107) mmol/L Glucose 129 H (74-99) mg/dL POC Glucose (mg/dL) 134 H (75-99) mg/dL Total Protein 5.2 L (6.3-8.2) g/dL Albumin 3.1 L (3.5-5.0) g/dL Arterial Blood Glucose (75-99) mg/dL - Imaging and Cardiology Chest x-ray: image reviewed Assessment and Plan Assessment: 1. Triple-vessel coronary artery disease with totally occluded obtuse marginal artery and right coronary artery, status post three-vessel CABG 2. History of recent non-STEMI, recent admission for acute systolic heart failure with EF 30-35%, ischemic cardiomyopathy 3. History of hypertension 4. History of hyperlipidemia, treated, cholesterol 223, LDL 163 5. Uncontrolled type 2 diabetes mellitus with hyperglycemia and preoperative h emoglobin A1c 10.8% 6. Restrictive lung disease due to obesity, preop FEV1 82% 7. Obesity 8. Vertigo 9. Family history of premature coronary artery disease with father having had CABG in his 40s 10. Postoperative acute blood loss anemia and thrombocytopenia, expected, dilutional Plan: 1. Continue aspirin, statin, Plavix, beta david therapy. Will increase beta david therapy as tolerated 2. Continue low-dose Norvasc for radial artery spasm. Do not discontinue CCB without discussed with cardiothoracic surgery 3. Encourage incentive spirometry use 10 times every hour while awake. Bronchodilators per pulmonology 4. Will monitor daily labs and x-rays. Electro replacement per protocol. No transfusion. Will give IV concentrated albumin followed by IV lasix 5. GI/DVT prophylaxis 6. Pain controlled current medication regimen 7. Insulin management per Dr. Wray 8. Will discontinue epicardial pacemaker wires, patient to remain on bedrest for 1 hour post wire removal 9. Will discontinue mediastinal chest tube, keep left pleural chest tubes for another 24 hours and monitor output and consistency 10. Discontinue Johnston. May straight cath and bladder scan for residual >300 mL. Strict accurate intake and output 11. Daily weights using standard upscale, not bed scale 12. Patient may need LifeVest at discharge, will defer to cardiology judgement 13. More recommendations to follow based on patient's progress The patient was seen and examined and I agree with the assessment and plan documented by the nurse practitioner Time with Patient: Greater than 30 <Supa Mullins - Last Filed: 01/06/20 16:40> Objective - Vital Signs Vital signs: Vital Signs Temp 98.9 F 01/06/20 12:00 Pulse 89 01/06/20 16:00 Resp 22 01/06/20 16:00 BP 116/79 01/06/20 16:00 Pulse Ox 97 01/06/20 16:00 Intake & Output 01/05/20 01/06/20 01/06/20 18:59 06:59 18:59 Intake Total 769.741 578.200 859.367 Output Total 450 515 810 Balance 319.741 63.200 49.367 Weight 101 kg 99 kg Intake: IV 492.3 562 360 Albumin 250 Albumin Human 25% 50 ml 100 In Empty Bag 1 bag @ 50 mls/hr IVPB Q1H [facility] Rx#: [id number] CO/CI 40 Milrinone-D5w Pmx 20 mg 2.8 In Dextrose/Water 1 100ml .bag @ 0.1 MCG/KG/MIN 2. 79 mls/hr IV .Q24H [facility] Rx #:[id number] Nitroglycerin-D5w Pmx 50 1.5 mg In Dextrose/Water 1 250ml.bag @ 5 MCG/MIN 1.5 mls/hr IV .Q24H [facility] Rx#: [id number] Sodium Chloride 0.9% 1, 270 240 200 000 ml @ 20 mls/hr IV . Q24H [facility] Rx#:[id number] ceFAZolin 2 gm In Sodium 100 Chloride 0.9% 50 ml @ 100 mls/hr IVPB Q8HR [facility] Rx# :[id number] pressure bag 78 72 60 Intake, IV Titration 37.441 16.200 9.367 Amount Insulin Regular 100 unit 37.441 16.200 9.367 In Sodium Chloride 0.9% 100 ml @ Per Protocol IV .Q0M [facility] Rx#:[id number] Oral 240 490 Output: Chest Tube Drainage 150 120 140 Left Pleural 50 90 110 Mediastinal 100 30 30 Drainage 10 Left Wrist 10 Urine 290 395 670 Other: Voiding Method Indwelling Catheter Indwelling Catheter Indwelling Catheter ABP, PAP, CO, CI - Last Documented Arterial Blood Pressure 129/64 Pulmonary Artery Pressure 21/9 Cardiac Output 6.4 Cardiac Index 3.1 - Labs CBC & Chem 7: 01/06/20 03:50 01/06/20 03:50 Labs: Abnormal Lab Results - Last 24 Hours (Table) 01/05/20 01/05/20 01/05/20 Range/Units 17:21 18:48 20:42 RBC (4.30-5.90) m/uL Hgb (13.0-17.5) gm/dL Hct (39.0-53.0) % Plt Count (150-450) k/uL Chloride (98-107) mmol/L Glucose (74-99) mg/dL POC Glucose (mg/dL) 144 H 192 H 127 H (75-99) mg/dL Total Protein (6.3-8.2) g/dL Albumin (3.5-5.0) g/dL 01/05/20 01/06/20 01/06/20 Range/Units 21:54 02:02 03:35 RBC (4.30-5.90) m/uL Hgb (13.0-17.5) gm/dL Hct (39.0-53.0) % Plt Count (150-450) k/uL Chloride (98-107) mmol/L Glucose (74-99) mg/dL POC Glucose (mg/dL) 116 H 148 H 132 H (75-99) mg/dL Total Protein (6.3-8.2) g/dL Albumin (3.5-5.0) g/dL 01/06/20 01/06/20 01/06/20 Range/Units 03:50 03:50 06:10 RBC 2.93 L (4.30-5.90) m/uL Hgb 8.8 L (13.0-17.5) gm/dL Hct 27.0 L (39.0-53.0) % Plt Count 112 L (150-450) k/uL Chloride 111 H (98-107) mmol/L Glucose 129 H (74-99) mg/dL POC Glucose (mg/dL) 134 H (75-99) mg/dL Total Protein 5.2 L (6.3-8.2) g/dL Albumin 3.1 L (3.5-5.0) g/dL 01/06/20 01/06/20 Range/Units 08:18 11:32 RBC (4.30-5.90) m/uL Hgb (13.0-17.5) gm/dL Hct (39.0-53.0) % Plt Count (150-450) k/uL Chloride (98-107) mmol/L Glucose (74-99) mg/dL POC Glucose (mg/dL) 181 H 160 H (75-99) mg/dL Total Protein (6.3-8.2) g/dL Albumin (3.5-5.0) g/dL Assessment and Plan Plan: The patient was seen and examined and I agree with the nurse practitioner's assessment and plan.
[2020-01-06 08:18] LABS: Glucose,Whole Blood 181 mg/dL (75-99)
[2020-01-06] MEDS ORDERED: FUROSEMIDE 10 MG/ML 4 ML VIAL IV STA (08:46)
[2020-01-06] MEDS: MUPIROCIN 2% OINT 22 GM TUBE NASAL SCH ×2 (09:13→21:08)
[2020-01-06] MEDS: ALBUMIN HUMAN 25% 50 ML in EMPTY BAG 1 BAG IVPB SCH ×2 (09:13→10:45)
--- NOTE | 2020-01-06 09:31 | XR ---
EXAMINATION TYPE: XR chest 1V portable DATE OF EXAM: 01/06/2020 COMPARISON: Prior chest x-ray 01/05/2020 HISTORY: Postop cardiac surgery TECHNIQUE: Single frontal view of the chest is obtained. FINDINGS: There is been interval removal of the central venous catheter, central venous sheath remai ns in place the right jugular region. There is no evident pneumothorax. Left-sided chest tube is in p lace. Patient is post median sternotomy and atrial appendage clipping placement. Lung volumes are low and the patient is rotated. Bibasilar increased attenuation shows a similar appearance. Heart is enl arged and unchanged. IMPRESSION: Expiratory rotated exam, basilar subsegmental atelectasis and cardiomegaly.
[2020-01-06 11:34] LABS: Glucose,Whole Blood 160 mg/dL (75-99)
[2020-01-06] MEDS: INSULIN ASPART (NovoLOG) 100 UNIT/ML VIAL SQ SCH ×3 (11:56→21:07)
[2020-01-06] MEDS: amLODIPine 2.5 MG TAB PO SCH (11:56)
--- NOTE | 2020-01-06 13:40 | PN ---
PROGRESS NOTE Zach is a 49-year-old gentleman who is admitted to hospital for bypass surgery. Today is postoperative day #1. He had BELTRAN to LAD and radial artery graft to ramus. He has LV systolic dysfunction. The patient is doing well, remains in sinus rhythm. Hemodynamically stable. CURRENT MEDICATIONS: Include Norvasc 2.5 daily, aspirin, Lipitor, Plavix. On exam, comfortable at rest. Vital signs are stable. There is no jugular venous distention. Chest exam reveals good air entry bilaterally. Heart exam reveals first and second heart sounds. No gallop. Exam of extremities did not reveal any edema. Peripheral pulses are felt. ASSESSMENT: Coronary artery disease, status post coronary artery bypass grafting postop day number 2. The patient is doing well. Continue current medications. I advised the patient on incentive spirometry. Mediastinal chest tube will be discontinued. MMODL / IJN: [id number] /
--- NOTE | 2020-01-06 15:53 | P.PN ---
Subjective Progress Note Date: 01/06/20 Principal diagnosis: Status post CABG for triple vessel coronary artery disease, postoperative day #2 This is a 49-year-old white male recently diagnosed with triple-vessel coronary artery disease, patient underwent today elective triple coronary bypass grafting using BELTRAN to LAD, left radial artery to the ramus intermedius artery and reversed saphenous vein graft from the aorta to the posterior descending artery. Postoperatively, patient was on mechanical ventilation, and I was asked to see him on consultation. Ventilator settings were noted, patient was switched from IMV mode to assist control mode, rate was increased to 14 instead of 12, his tidal volume remains the same, PEEP remained the same at 8. Follow-up ABG is pending. Chest x-ray was reviewed and there was evidence of in proper placement of the [place]-Mik catheter, and this was pulled out and follow-up chest x-ray showed adequate placement in the left proximal pulmonary artery. Waveform was appropriate. And the [place]-Mik was wedging fine after adjustment. Patient was reevaluated today on 01/05/20, remains in the ICU, patient was extubated shortly after he arrived to the ICU from bypass surgery. Patient was extubated at 1905. Patient is sitting at a bedside chair, he is on 4 L nasal cannula with O2 saturation of 96%. He is not requiring any inotropes, not requiring any pressors, he is only on insulin at 7 units per hour. And he is on 0.9 normal saline at 50 mL per hour. Chest x-ray showed very minimal postoperative changes and atelectasis as expected. Patient is doing fairly well with incentive spirometry. CBC is relatively normal hemoglobin is 9.9. WBC count is 10.0. Basic metabolic profile is normal. Renal profile is normal. Patient was reevaluated today on 01/06/20, remains in the ICU, patient is currently sitting in the recliner, in no distress. Pain seems to be fairly well controlled. Patient denies any shortness of breath, denies any chest pain, has occasional nausea, controlled with Zofran. Patient is hemodynamically stable, not requiring any inotropes or process. Has been ambulating in the hallway. He did ambulate. Times yesterday. Chest x-ray is basically unremarkable. CBC is normal elective 7 normal renal profile is normal. Objective - Vital Signs Vital signs: Vital Signs Temp 98.9 F 11/06/20 12:00 Pulse 89 01/06/20 15:00 Resp 11 L 01/06/20 15:00 BP 107/78 01/06/20 15:00 Pulse Ox 97 01/06/20 15:00 Intake & Output 01/05/20 01/06/20 01/06/20 18:59 06:59 18:59 Intake Total 769.741 578.200 833.367 Output Total 450 515 770 Balance 319.741 63.200 63.367 Weight 101 kg 99 kg Intake: IV 492.3 562 334 Albumin 250 Albumin Human 25% 50 ml 100 In Empty Bag 1 bag @ 50 mls/hr IVPB Q1H [facility] Rx#: [id number] CO/CI 40 Milrinone-D5w Pmx 20 mg 2.8 In Dextrose/Water 1 100ml .bag @ 0.1 MCG/KG/MIN 2. 79 mls/hr IV .Q24H [facility] Rx #:[id number] Nitroglycerin-D5w Pmx 50 1.5 mg In Dextrose/Water 1 250ml.bag @ 5 MCG/MIN 1.5 mls/hr IV .Q24H [facility] Rx#: [id number] Sodium Chloride 0.9% 1, 270 240 180 000 ml @ 20 mls/hr IV . Q24H [facility] Rx#:[id number] ceFAZolin 2 gm In Sodium 100 Chloride 0.9% 50 ml @ 100 mls/hr IVPB Q8HR [facility] Rx# :[id number] pressure bag 78 72 54 Intake, IV Titration 37.441 16.200 9.367 Amount Insulin Regular 100 unit 37.441 16.200 9.367 In Sodium Chloride 0.9% 100 ml @ Per Protocol IV .Q0M [facility] Rx#:[id number] Oral 240 490 Output: Chest Tube Drainage 150 120 140 Left Pleural 50 90 110 Mediastinal 100 30 30 Drainage 10 Left Wrist 10 Urine 290 395 630 Other: Voiding Method Indwelling Catheter Indwelling Catheter Indwelling Catheter ABP, PAP, CO, CI - Last Documented Arterial Blood Pressure 116/61 Pulmonary Artery Pressure 21/9 Cardiac Output 6.4 Cardiac Index 3.1 - Exam Physical Exam: Revealed a 49-year-old white male obese in no distress. On room air. Head: Atraumatic normocephalic. HEENT:[Neck is supple.] [No neck masses.] [No thyromegaly.] [No JVD.] Chest: [Symmetrical chest expansion, crackles at the bases, no rhonchi and no wheezes.Mediastinal chest tube present to continuous wall suction, 30 mL serosanguineous drainage overnight, 100 mL in the last 24 hours, no air leak present. Left pleural chest tube present to continuous wall suction, 90 mL serosanguineous drainage overnight, 200 mL in the last 24 hours, no air leak present. Cardiac Exam: [Normal S1 and S2, no S3 gallop, no murmur.] Positive pericardial rub.Right internal jugular Cordis, right radial arterial line present. Abdomen: [Soft, nontender, no megaly, no rebound, no guarding, normal bowel sounds.] Extremities: [No clubbing, no edema, no cyanosis.] Neurological Exam: [No focal neurologic deficit.] Alert and oriented 3. Psychiatric: Normal mood, affect and normal mental status examination. HEENT: No rashes - Labs CBC & Chem 7: 01/06/20 03:50 01/06/20 03:50 Labs: Abnormal Lab Results - Last 24 Hours (Table) 01/05/20 01/05/20 01/05/20 Range/Units 16:08 17:21 18:48 RBC (4.30-5.90) m/uL Hgb (13.0-17.5) gm/dL Hct (39.0-53.0) % Plt Count (150-450) k/uL Chloride (98-107) mmol/L Glucose (74-99) mg/dL POC Glucose (mg/dL) 132 H 144 H 192 H (75-99) mg/dL Total Protein (6.3-8.2) g/dL Albumin (3.5-5.0) g/dL 01/05/20 01/05/20 01/06/20 Range/Units 20:42 21:54 02:02 RBC (4.30-5.90) m/uL Hgb (13.0-17.5) gm/dL Hct (39.0-53.0) % Plt Count (150-450) k/uL Chloride (98-107) mmol/L Glucose (74-99) mg/dL POC Glucose (mg/dL) 127 H 116 H 148 H (75-99) mg/dL Total Protein (6.3-8.2) g/dL Albumin (3.5-5.0) g/dL 01/06/20 01/06/20 01/06/20 Range/Units 03:35 03:50 03:50 RBC 2.93 L (4.30-5.90) m/uL Hgb 8.8 L (13.0-17.5) gm/dL Hct 27.0 L (39.0-53.0) % Plt Count 112 L (150-450) k/uL Chloride 111 H (98-107) mmol/L Glucose 129 H (74-99) mg/dL POC Glucose (mg/dL) 132 H (75-99) mg/dL Total Protein 5.2 L (6.3-8.2) g/dL Albumin 3.1 L (3.5-5.0) g/dL 01/06/20 01/06/20 01/06/20 Range/Units 06:10 08:18 11:32 RBC (4.30-5.90) m/uL Hgb (13.0-17.5) gm/dL Hct (39.0-53.0) % Plt Count (150-450) k/uL Chloride (98-107) mmol/L Glucose (74-99) mg/dL POC Glucose (mg/dL) 134 H 181 H 160 H (75-99) mg/dL Total Protein (6.3-8.2) g/dL Albumin (3.5-5.0) g/dL Assessment and Plan Assessment: Impression: Status post CABG for triple vessel coronary artery disease, postoperative day #2 Severe LV dysfunction/ischemic cardiomyopathy. Postoperative atelectasis, expected. History of previous myocardial infarction. History of type 2 diabetes. History of dyslipidemia. Benign essential hypertension. Morbid obesity. Restrictive lung disease secondary to obesity. Family history of premature coronary artery disease. Recommendation: Continue to encourage incentive spirometry. Continue to encourage ambulation. Continue beta blockers statins and Plavix aspirin. Continue pain control. Continue incentive spirometry. Chest x-ray was reviewed and it is reassuring. Discontinue Johnston catheter. Discontinue mediastinal chest tube Continue GI and DVT prophylaxis. We'll continue to follow. Time with Patient: Less than 30
[2020-01-06 17:03] LABS: Glucose,Whole Blood 165 mg/dL (75-99)
--- NOTE | 2020-01-06 19:12 | P.PN ---
Progress Note - Text Progress Note Date: 01/06/20 - Chief Complaint CABG History of presenting complaint This is a pleasant 49-year-old patient who follows with Dr. coburn from [place]. Chronic stable medical conditions include diabetes, hypertension, hyperlipidemia. Patient in the hospital about 3 weeks ago with a non-ST elevation microinfarction. Cardiac catheterization showed triple-vessel disease. 2-D echo showed an EF of 30-35%.. Patient underwent cardiac bypass [id number] up in a chair. When chest tube in place. Johnston catheter in place. Oral intake good. On room air. Patient had bleeding about 150 feet. Review of systems: Was done for constitutional, cardiovascular, GI, pulmonary. relevant finding as above Active Medications Acetaminophen (Acetaminophen Tab 325 Mg Tab) 650 mg PO Q4HR PRN PRN Reason: Fever and/ or Pain Hydrocodone Bitart/Acetaminophen (Hydrocodone/Apap 5-325mg 1 Each Tab) 2 each PO Q4HR PRN PRN Reason: Severe Pain Last Admin: 01/05/20 16:20 Dose: 2 each Documented by: Hydrocodone Bitart/Acetaminophen (Hydrocodone/Apap 5-325mg 1 Each Tab) 1 each PO Q4HR PRN PRN Reason: Pain Last Admin: 01/06/20 15:38 Dose: 1 each Documented by: Albuterol/Ipratropium (Ipratropium-Albuterol 3 Ml Neb) 3 ml INHALATION RT-Q2H PRN PRN Reason: Shortness Of Breath Or Wheezing Albuterol/Ipratropium (Ipratropium-Albuterol 3 Ml Neb) 3 ml INHALATION RT-QID [facility] Last Admin: 01/06/20 17:35 Dose: 3 ml Documented by: Amlodipine Besylate (Amlodipine 2.5 Mg Tab) 2.5 mg PO DAILY@1200 [facility] Last Admin: 01/06/20 11:56 Dose: 2.5 mg Documented by: Aspirin (Aspirin 325 Mg Tab) 325 mg PO DAILY [facility] Last Admin: 01/06/20 08:07 Dose: 325 mg Documented by: Atorvastatin Calcium (Atorvastatin 40 Mg Tab) 40 mg PO DAILY [facility] Last Admin: 01/06/20 08:07 Dose: 40 mg Documented by: Benzocaine/Menthol (Benzocaine/Menthol Lozeng 1 Each Lozenge) 1 each MUCOUS MEM Q2H PRN PRN Reason: Sore Throat Bisacodyl (Bisacodyl 10 Mg Supp) 10 mg RECTAL DAILY PRN PRN Reason: Constipation Clopidogrel Bisulfate (Clopidogrel 75 Mg Tab) 75 mg PO DAILY [facility] Last Admin: 01/06/20 08:07 Dose: 75 mg Documented by: Heparin Sodium (Porcine) (Heparin Sodium,Porcine 5,000 Unit/Ml 1 Ml Vial) 5,000 unit SQ Q8HR [facility] Last Admin: 01/06/20 15:30 Dose: 5,000 unit Documented by: Amiodarone HCl 150 mg/ (Dextrose/Water) 103 mls @ 618 mls/hr IV .Q10M PRN; Protocol PRN Reason: A.FIB/FLUTTER Amiodarone HCl 360 mg/ (Dextrose/Water) 200 mls @ 33.333 mls/hr IV .Q6H PRN; Protocol PRN Reason: A.FIB/FLUTTER Amiodarone HCl 300 mg/ (Dextrose/Water) 250 mls @ 25 mls/hr IV .Q10H PRN; Protocol PRN Reason: A.FIB/FLUTTER Insulin Aspart (Insulin Aspart (Novolog) 100 Unit/Ml Vial) 0 unit SQ ACHS [facility]; Protocol Last Admin: 01/06/20 17:11 Dose: 1 unit Documented by: Ketorolac Tromethamine (Ketorolac 15 Mg/Ml 1 Ml Vial) 15 mg IVP Q6HR [facility] Stop: 01/07/20 17:12 Last Admin: 01/06/20 17:11 Dose: 15 mg Documented by: Magnesium Hydroxide (Magnesium Hydroxide 2,400 Mg/10 Ml Cup) 2,400 mg PO BID PRN PRN Reason: Constipation Meclizine HCl (Meclizine 25 Mg Tab) 25 mg PO BID PRN PRN Reason: Vertigo Last Admin: 01/05/20 22:19 Dose: 25 mg Documented by: Metoclopramide HCl (Metoclopramide 5 Mg/Ml 2 Ml Vial) 10 mg IVP Q4H PRN PRN Reason: Nausea And Vomiting Last Admin: 01/06/20 05:14 Dose: 10 mg Documented by: Metoprolol Tartrate (Metoprolol Tartrate 12.5 Mg Tab) 12.5 mg PO BID [facility] Last Admin: 01/06/20 08:07 Dose: 12.5 mg Documented by: Miscellaneous Information (Potassium Replacement Protocol 1 Each Misc) 1 each MISCELLANE DAILY PRN; Protocol PRN Reason: Per Protocol Miscellaneous Information (Magnesium Replacement Protocol 1 Each Misc) 1 each MISCELLANE DAILY PRN; Protocol PRN Reason: Per Protocol Miscellaneous Information (Phosphorus Replacement Protoco 1 Each Misc) 1 each MISCELLANE DAILY PRN; Protocol PRN Reason: Per Protocol Mupirocin (Mupirocin 2% Oint 22 Gm Tube) 1 applic NASAL BID [facility] Stop: 01/07/20 21:01 Last Admin: 01/06/20 09:13 Dose: 1 applic Documented by: Ondansetron HCl (Ondansetron 4 Mg/2 Ml Vial) 4 mg IVP Q6HR PRN PRN Reason: Nausea And Vomiting Last Admin: 01/05/20 16:19 Dose: 4 mg Documented by: Pantoprazole Sodium (Pantoprazole 40 Mg Tablet) 40 mg PO AC-BRKFST [facility] Last Admin: 01/06/20 06:02 Dose: 40 mg Documented by: Senna/Docusate Sodium (Sennosides-Docusate Sodium 1 Each Tab) 2 each PO HS [facility] Last Admin: 01/05/20 20:36 Dose: 2 each Documented by: Sodium Chloride (Sodium Chloride 0.9% Flush 10 Ml Syringe) 10 ml IV BID [facility] Last Admin: 01/06/20 08:15 Dose: 10 ml Documented by: Physical examination: VITAL SIGNS: Afebrile, 89, 26, 102/69, recent percent room air GENERAL: Sitting upon a chair, awake EYES: Pupils equal. Conjunctiva normal. NECK: JVD unable to assess; masses not palpable. HEART: First and second heart sounds are normal; no edema. LUNGS: Respiratory rate increased; decreased breath sounds. CHEST wall: On chest tube in place ABDOMEN: Soft, nontender, liver spleen not palpable, no masses palpable. Johnston catheter PSYCH: Alert and oriented x3; mood and affect normal. INVESTIGATIONS, reviewed in the clinical context: Today-white count 9.6 hemoglobin 8.8 platelets 112 potassium 4 creatinine 0.71 Previous testing: White count 9.6 hemoglobin 16 platelets 231 potassium 4.3 creatinine 0.75 2-D echocardiogram-moderate concentric LVH, EF 30-35% Assessment: -Status post but CABG -Acute postprocedure blood loss anemia expected from surgery -Dilutional thrombocytopenia -Diabetes mellitus type 2 on oral hypoglycemic -Essential hypertension -Chronic congestive heart failure from systolic dysfunction EF 30-35% from ischemic heart disease -Hypoalbuminemia-acute phase reactant Plan: Doing better. Continue current medication treatment plan. She'll have his Johnston catheter discontinued later today. Thank you Dr. Hylton
[2020-01-06] MEDS: MAGNESIUM HYDROXIDE 2,400 MG/10 ML CUP PO PRN (19:16)
[2020-01-06 20:56] LABS: Glucose,Whole Blood 200 mg/dL (75-99)
[2020-01-06] MEDS: SENNOSIDES-DOCUSATE SODIUM 1 EACH TAB PO SCH (21:07)
[2020-01-07] MEDS: KETOROLAC 15 MG/ML 1 ML VIAL IVP SCH ×3 (00:27→11:48)
[2020-01-07] MEDS: HEPARIN SODIUM,PORCINE 5,000 UNIT/ML 1 ML VIAL SQ SCH ×4 (00:27→23:36)
[2020-01-07 04:34] LABS: Basophils # (A) 0.1 k/uL (0-0.2); Basophils % (A) 1 %; Eosinophils # (A) 0.3 k/uL (0-0.7); Eosinophils % (A) 3 %; HCT 28.3 % (39.0-53.0); HGB 9.6 gm/dL (13.0-17.5); Lymphocytes # (A) 1.3 k/uL (1.0-4.8); Lymphocytes % (A) 14 %; MCH 31.7 pg (25.0-35.0); MCHC 33.8 g/dL (31.0-37.0); MCV 93.8 fL (80.0-100.0); Mean Platelet Volume 10.5; Monocytes # (A) 0.5 k/uL (0-1.0); Monocytes % (A) 5 %; Neutrophils # (A) 7.5 k/uL (1.3-7.7); Neutrophils % (A) 76 %; Platelet Count 111 k/uL (150-450); RBC 3.02 m/uL (4.30-5.90); RDW 13.9 % (11.5-15.5); WBC 9.9 k/uL (3.8-10.6)
[2020-01-07 04:44] LABS: ALT 13 U/L (4-49); AST 26 U/L (17-59); African American GFR (CKD) >90 (>60 ml/min/1.73 sqM); Albumin 3.1 g/dL (3.5-5.0); Alkaline Phosphatase 62 U/L (38-126); Anion Gap 7 mmol/L; Blood Urea Nitrogen 19 mg/dL (9-20); Calcium 8.6 mg/dL (8.4-10.2); Carbon Dioxide 21 mmol/L (22-30); Chloride 109 mmol/L (98-107); Glucose 172 mg/dL (74-99); Non-African American GFR(CKD) >90 (>60 ml/min/1.73 sqM); Potassium 4.1 mmol/L (3.5-5.1); Sodium 137 mmol/L (137-145); Total Bilirubin 0.9 mg/dL (0.2-1.3); Total Protein 5.4 g/dL (6.3-8.2)
[2020-01-07 06:27] LABS: Glucose,Whole Blood 171 mg/dL (75-99)
[2020-01-07] MEDS: PANTOPRAZOLE 40 MG TABLET PO SCH (06:28)
[2020-01-07] MEDS: INSULIN ASPART (NovoLOG) 100 UNIT/ML VIAL SQ SCH ×4 (06:28→21:31)
[2020-01-07] MEDS: IPRATROPIUM-ALBUTEROL 3 ML NEB INHALATION SCH ×4 (07:59→20:04)
--- NOTE | 2020-01-07 08:33 | P.PN ---
Subjective Progress Note Date: 01/07/20 Principal diagnosis: Triple-vessel coronary artery disease with totally occluded obtuse marginal artery and right coronary artery with evidence of old posterolateral myocardial infarction, moderate left ventricular dysfunction with EF estimated at 30%. Previous medical history of recent non-STEMI, recent admission for acute systolic heart failure, hypertension, hyperlipidemia, uncontrolled type 2 diabetes mellitus with hyperglycemia and preoperative hemoglobin A1c 10.8%, obe sity, vertigo, and family history of premature coronary artery disease with father having had CABG in his 40s. POD #3 triple coronary artery bypass grafting using the left internal mammary artery to the left anterior descending artery, left radial artery from the aorta to the ramus intermedius artery, reverse saphenous vein graft from the aorta to the posterior descending artery, exclusion of the left atrial appendage using a 35 mm AtriClip, intraoperative transesophageal echocardiogram and epi-aortic scanning, endoscopic harvesting of the left radial artery, endoscopic harvesting of the left greater saphenous vein from the groin to above the ankle level, intraoperative graft flow measurements using the [employer] system. Postoperative acute blood loss anemia and thrombocytopenia, expected, dilutional The patient's currently sitting up in a recliner in no acute distress in the ICU. He states pain is controlled on current medication regimen, denies shortness of breath. Remains in normal sinus rhythm and hemodynamically stable. Left pleural chest tubes present. Ambulated in the hallway yesterday multiple times without difficulty. Transfer orders placed last night for [facility] cardiac [facility], no bed available. No new concerns. Objective - Vital Signs Vital signs: Vital Signs Temp 99 F 01/07/20 04:00 Pulse 83 01/07/20 08:18 Resp 18 01/07/20 04:00 BP 123/91 01/07/20 04:00 Pulse Ox 94 L 01/07/20 04:00 Intake & Output 01/06/20 01/07/20 01/07/20 18:59 06:59 18:59 Intake Total 911.367 240 Output Total 905 670 Balance 6.367 -430 Weight 101.3 kg Intake: IV 412 Albumin Human 25% 50 ml 100 In Empty Bag 1 bag @ 50 mls/hr IVPB Q1H [facility] Rx#: [id number] Sodium Chloride 0.9% 1, 240 000 ml @ 20 mls/hr IV . Q24H [facility] Rx#:[id number] pressure bag 72 Intake, IV Titration 9.367 Amount Insulin Regular 100 unit 9.367 In Sodium Chloride 0.9% 100 ml @ Per Protocol IV .Q0M [facility] Rx#:[id number] Oral 490 240 Output: Chest Tube Drainage 140 70 Left Pleural 110 70 Mediastinal 30 Urine 765 600 Other: Voiding Method Indwelling Catheter Indwelling Catheter ABP, PAP, CO, CI - Last Documented Arterial Blood Pressure 122/57 Pulmonary Artery Pressure 21/9 Cardiac Output 6.4 Cardiac Index 3.1 - Constitutional General appearance: Present: cooperative, no acute distress, obese - Respiratory Details: Lungs sounds diminished bilaterally. Respirations even, nonlabored. Currently on room air with oxygen saturation 94%. Able to achieve 750 mL on his incentive spirometry. Strong cough. Left pleural chest tube present to continuous wall suction, 40 mL serosanguineous drainage overnight, 200 mL in the last 24 hours, no air leak present. - Cardiovascular Details: S1, S2 present. Regular rate and rhythm, sinus rhythm on telemetry. Sternum stable. Palpable peripheral pulses bilaterally. No edema present. No calf pain or tenderness noted. Heart hugger in place with patient demonstrating appropriate use. Antiembolism stockings, SCDs present. - Gastrointestinal Gastrointestinal Comment(s): Abdomen soft, nontender, nondistended. Active bowel sounds present 4 quadrants. Tolerating diet. Positive flatus, negative bowel movement. - Genitourinary Genitourinary Comment(s): Johnston discontinued last night, patient has voided without difficulty - Integumentary Integumentary Comment(s): Skin is warm and dry with evidence of good perfusion. Anterior chest incision well approximated and covered with dry intact dressing. Left radial artery harvest site well approximated. Patient denies numbness or tingling to his hand, able to wiggle all fingers and take up operator appropriately, good cap refill. Left lower extremity EVH site well approximated without redness or drainage. - Neurologic Neurologic: Present: CNII-XII intact - Musculoskeletal Musculoskeletal: Present: gait normal, strength equal bilaterally - Psychiatric Psychiatric: Present: A&O x's 3, appropriate affect, intact judgment & insight - Allied health notes Allied health notes reviewed: nursing - Labs CBC & Chem 7: 01/07/20 04:03 01/07/20 04:03 Labs: Abnormal Lab Results - Last 24 Hours (Table) 1101/06/20 01/06/20 Range/Units 11:32 17:02 20:55 RBC (4.30-5.90) m/uL Hgb (13.0-17.5) gm/dL Hct (39.0-53.0) % Plt Count (150-450) k/uL Chloride (98-107) mmol/L Carbon Dioxide (22-30) mmol/L Glucose (74-99) mg/dL POC Glucose (mg/dL) 160 H 165 H 200 H (75-99) mg/dL Total Protein (6.3-8.2) g/dL Albumin (3.5-5.0) g/dL 01/07/20 01/07/20 01/07/20 Range/Units 04:03 04:03 06:25 RBC 3.02 L (4.30-5.90) m/uL Hgb 9.6 L (13.0-17.5) gm/dL Hct 28.3 L (39.0-53.0) % Plt Count 111 L (150-450) k/uL Chloride 109 H (98-107) mmol/L Carbon Dioxide 21 L (22-30) mmol/L Glucose 172 H (74-99) mg/dL POC Glucose (mg/dL) 171 H (75-99) mg/dL Total Protein 5.4 L (6.3-8.2) g/dL Albumin 3.1 L (3.5-5.0) g/dL - Imaging and Cardiology Chest x-ray: image reviewed Assessment and Plan Assessment: 1. Triple-vessel coronary artery disease with totally occluded obtuse marginal artery and right coronary artery, status post three-vessel CABG 2. History of recent non-STEMI, recent admission for acute systolic heart failu re with EF 30-35%, ischemic cardiomyopathy 3. History of hypertension 4. History of hyperlipidemia, treated, cholesterol 223, LDL 163 5. Uncontrolled type 2 diabetes mellitus with hyperglycemia and preoperative hemoglobin A1c 10.8% 6. Restrictive lung disease due to obesity, preop FEV1 82% 7. Obesity 8. Vertigo 9. Family history of premature coronary artery disease with father having had C ABG in his 40s 10. Postoperative acute blood loss anemia and thrombocytopenia, expected, dilutional Plan: 1. Continue aspirin, statin, Plavix, beta david therapy. Will increase beta david therapy as tolerated 2. Continue low-dose Norvasc for radial artery spasm. Do not discontinue CCB without discussed with cardiothoracic surgery 3. Will add low dose ARB for afterload reduction 4. Encourage incentive spirometry use 10 times every hour while awake. Bronchodilators per pulmonology 5. Will monitor daily labs and x-rays. Electro replacement per protocol. No transfusion. 6. GI/DVT prophylaxis 7. Pain controlled current medication regimen 8. Insulin management per Dr. Wray 9. Will discontinue left pleural chest tubes 10. Strict accurate intake and output 11. Daily weights using standard upscale, not bed scale 12. Patient may need LifeVest at discharge, will defer to cardiology judgement 13. Transfer orders placed yesterday for cardiac stepdown unit, may transfer when bed available 14. Discharge planning in progress, anticipate discharge to home with home care in the next 24-48 hours 15. More recommendations to follow based on patient's progress The patient was seen and examined and I agree with the assessment and plan documented by the nurse practitioner Time with Patient: Greater than 30
[2020-01-07] MEDS: CLOPIDOGREL 75 MG TAB PO SCH (09:03)
[2020-01-07] MEDS: ATORVASTATIN 40 MG TAB PO SCH (09:03)
[2020-01-07] MEDS: ASPIRIN 325 MG TAB PO SCH (09:03)
[2020-01-07] MEDS: MUPIROCIN 2% OINT 22 GM TUBE NASAL SCH ×2 (09:03→23:36)
[2020-01-07] MEDS: METOPROLOL TARTRATE 25 MG TAB PO SCH ×2 (09:03→19:59)
--- NOTE | 2020-01-07 09:47 | XR ---
EXAMINATION TYPE: XR chest 1V portable DATE OF EXAM: 01/07/2020 CLINICAL HISTORY: post cardiac surgery. TECHNIQUE: Portable frontal view of the chest. COMPARISON: 01/06/2020 chest radiograph FINDINGS: Sternotomy wires, left atrial appendage clip, and left chest tube redemonstrated. Cardiome nayeli. Bibasilar atelectasis. Small right pleural effusion. No pneumothorax. IMPRESSION: Small right pleural effusion and bibasilar atelectasis.
[2020-01-07 11:33] LABS: Glucose,Whole Blood 145 mg/dL (75-99)
[2020-01-07] MEDS: amLODIPine 2.5 MG TAB PO SCH (11:48)
[2020-01-07] MEDS: LOSARTAN 25 MG TAB PO SCH (11:48)
--- NOTE | 2020-01-07 13:31 | P.PN ---
Subjective Progress Note Date: 01/07/20 Principal diagnosis: Status post CABG for triple vessel coronary artery disease, postoperative day # 3 This is a 49-year-old white male recently diagnosed with triple-vessel coronary artery disease, patient underwent today elective triple coronary bypass grafting using BELTRAN to LAD, left radial artery to the ramus intermedius artery and reversed saphenous vein graft from the aorta to the posterior descending artery. Postoperatively, patient was on mechanical ventilation, and I was asked to see him on consultation. Ventilator settings were noted, patient was switched from IMV mode to assist control mode, rate was increased to 14 instead of 12, his tidal volume remains the same, PEEP remained the same at 8. Follow-up ABG is pending. Chest x-ray was reviewed and there was evidence of in proper placement of the Roscoe-Mik catheter, and this was pulled out and follow-up chest x-ray showed adequate placement in the left proximal pulmonary artery. Waveform was appropriate. And the Roscoe-Mik was wedging fine after adjustment. Patient was reevaluated today on 01/05/20, remains in the ICU, patient was extubated shortly after he arrived to the ICU from bypass surgery. Patient was extubated at 1905. Patient is sitting at a bedside chair, he is on 4 L nasal cannula with O2 saturation of 96%. He is not requiring any inotropes, not requiring any pressors, he is only on insulin at 7 units per hour. And he is on 0.9 normal saline at 50 mL per hour. Chest x-ray showed very minimal postoperative changes and atelectasis as expected. Patient is doing fairly well with incentive spirometry. CBC is relatively normal hemoglobin is 9.9. WBC count is 10.0. Basic metabolic profile is normal. Renal profile is normal. Patient was reevaluated today on 01/06/20, remains in the ICU, patient is currently sitting in the recliner, in no distress. Pain seems to be fairly well controlled. Patient denies any shortness of breath, denies any chest pain, has occasional nausea, controlled with Zofran. Patient is hemodynamically stable, not requiring any inotropes or process. Has been ambulating in the hallway. He did ambulate. Times yesterday. Chest x-ray is basically unremarkable. CBC is normal elective 7 normal renal profile is normal. Patient was reevaluated today on 01/07/20, presently in the ICU, patient is sitting at a bedside recliner, in no distress. Patient is doing great. He is on room air, relatively asymptomatic. Hemodynamically stable, in sinus rhythm, left pleural chest tube remains in place. Patient has been ambulating in the hallway without difficulty. Chest x-ray showed small tiny right-sided pleural effusion and bibasilar atelectasis, expected finding. CBC and electrolytes as well as renal profile are normal. Objective - Vital Signs Vital signs: Vital Signs Temp 98.0 F 01/07/20 11:42 Pulse 72 01/07/20 11:42 Resp 18 01/07/20 11:42 BP 110/72 01/07/20 11:42 Pulse Ox 95 01/07/20 11:42 Intake & Output 01/06/20 01/07/20 01/07/20 18:59 06:59 18:59 Intake Total 911.367 240 Output Total 905 670 Balance 6.367 -430 Weight 101.3 kg Intake: IV 412 Albumin Human 25% 50 ml 100 In Empty Bag 1 bag @ 50 mls/hr IVPB Q1H [facility] Rx#: [id number] Sodium Chloride 0.9% 1, 240 000 ml @ 20 mls/hr IV . Q24H [facility] Rx#:[id number] pressure bag 72 Intake, IV Titration 9.367 Amount Insulin Regular 100 unit 9.367 In Sodium Chloride 0.9% 100 ml @ Per Protocol IV .Q0M [facility] Rx#:[id number] Oral 490 240 Output: Chest Tube Drainage 140 70 Left Pleural 110 70 Mediastinal 30 Urine 765 600 Other: Voiding Method Indwelling Catheter Indwelling Catheter Indwelling Catheter ABP, PAP, CO, CI - Last Documented Arterial Blood Pressure 122/57 Pulmonary Artery Pressure 21/9 Cardiac Output 6.4 Cardiac Index 3.1 - Exam Physical Exam: Revealed a 49-year-old white male obese in no distress. On room air. Head: Atraumatic normocephalic. HEENT:[Neck is supple.] [No neck masses.] [No thyromegaly.] [No JVD.] Chest: [Symmetrical chest expansion, crackles at the bases, no rhonchi and no wheezes. Cardiac Exam: [Normal S1 and S2, no S3 gallop, no murmur.] . Abdomen: [Soft, nontender, no megaly, no rebound, no guarding, normal bowel sounds.] Extremities: [No clubbing, no edema, no cyanosis.] Neurological Exam: [No focal neurologic deficit.] Alert and oriented 3. Psychiatric: Normal mood, affect and normal mental status examination. HEENT: No rashes - Labs CBC & Chem 7: 01/07/20 04:03 01/07/20 04:03 Labs: Abnormal Lab Results - Last 24 Hours (Table) 01/06/20 01/06/20 01/07/20 Range/Units 17:02 20:55 04:03 RBC 3.02 L (4.30-5.90) m/uL Hgb 9.6 L (13.0-17.5) gm/dL Hct 28.3 L (39.0-53.0) % Plt Count 111 L (150-450) k/uL Chloride (98-107) mmol/L Carbon Dioxide (22-30) mmol/L Glucose (74-99) mg/dL POC Glucose (mg/dL) 165 H 200 H (75-99) mg/dL Total Protein (6.3-8.2) g/dL Albumin (3.5-5.0) g/dL 01/07/20 01/07/20 01/07/20 Range/Units 04:03 06:25 11:32 RBC (4.30-5.90) m/uL Hgb (13.0-17.5) gm/dL Hct (39.0-53.0) % Plt Count (150-450) k/uL Chloride 109 H (98-107) mmol/L Carbon Dioxide 21 L (22-30) mmol/L Glucose 172 H (74-99) mg/dL POC Glucose (mg/dL) 171 H 145 H (75-99) mg/dL Total Protein 5.4 L (6.3-8.2) g/dL Albumin 3.1 L (3.5-5.0) g/dL Assessment and Plan Assessment: Impression: Status post CABG for triple vessel coronary artery disease, postoperative day #3 Severe LV dysfunction/ischemic cardiomyopathy. Postoperative atelectasis, expected. History of previous myocardial infarction. History of type 2 diabetes. History of dyslipidemia. Benign essential hypertension. Morbid obesity. Restrictive lung disease secondary to obesity. Family history of premature coronary artery disease. Recommendation: Continue to encourage incentive spirometry. Continue ambulation on a daily basis. Continue beta blockers statins and Plavix aspirin. Continue GI and DVT prophylaxis. We'll continue to follow. Time with Patient: Less than 30
--- NOTE | 2020-01-07 16:00 | ECHOF ---
Referral Reason:assess LV function MEASUREMENTS -------- HEIGHT: 172.7 cm WEIGHT: 101.2 kg BP: IVSd: 1.1 cm (0.6 - 1.1) LVIDd: 4.5 cm (3.9 - 5.3) LVPWd: 1.1 cm (0.6 - 1.1) IVSs: 1.4 cm LVIDs: 3.1 cm LVPWs: 1.5 cm IVSd: 1.0 cm (0.6 - 1.1) LVIDd: 6.1 cm (3.9 - 5.3) LVPWd: 1.1 cm (0.6 - 1.1) IVSs: 1.9 cm LVIDs: 4.6 cm LVPWs: 1.5 cm EDV(Teich): 188 ml ESV(Teich): 97 ml EF(Teich): 48 % %FS: 25 % SV(Teich): 91 ml FINDINGS -------- Limited Study There is mild concentric left ventricular hypertrophy. Overall left ventricular systolic function i s moderately impaired with, an EF between 35 - 40 %. Inferiorlateral Hypokinesis Lumason used There is no pericardial effusion. CONCLUSIONS -------- 1. There is mild concentric left ventricular hypertrophy. 2. Overall left ventricular systolic function is moderately impaired with, an EF between 35 - 40 %. 3. Inferiorlateral Hypokinesis 4. There is no pericardial effusion. PRINCIPAL PROGRAMMER: Antonieta Shook [facility]
--- NOTE | 2020-01-07 16:43 | P.PN ---
Subjective Progress Note Date: 01/07/20 This is a 49-year-old gentleman who is status post bypass surgery. Patient is sitting up in the chair. Doesn't appear to be in acute distress. No arrhythmias are noted. A repeat echo Cardigan showed hypokinesis of the inferolateral burton and inferobasal segments. Ejection fraction so some improvement and seemed to be in the range of 35-40%. It appears that patient doesn't need any LifeVest. Continue current medical therapy. Increase his activity. Transferred to telemetry unit. Possible discharge within next 24-48 hours Objective - Vital Signs Vital signs: Vital Signs Temp 98.0 F 01/07/20 11:42 Pulse 81 01/07/20 15:45 Resp 16 01/07/20 15:45 BP 110/72 01/07/20 11:42 Pulse Ox 95 01/07/20 11:42 Intake & Output 01/06/20 01/07/20 01/07/20 18:59 06:59 18:59 Intake Total 911.367 240 Output Total 905 670 Balance 6.367 -430 Weight 101.3 kg Intake: IV 412 Albumin Human 25% 50 ml 100 In Empty Bag 1 bag @ 50 mls/hr IVPB Q1H HERNANDEZ Rx#: [id number] Sodium Chloride 0.9% 1, 240 000 ml @ 20 mls/hr IV . Q24H HERNANDEZ Rx#:[id number] pressure bag 72 Intake, IV Titration 9.367 Amount Insulin Regular 100 unit 9.367 In Sodium Chloride 0.9% 100 ml @ Per Protocol IV .Q0M HERNANDEZ Rx#:[id number] Oral 490 240 Output: Chest Tube Drainage 140 70 Left Pleural 110 70 Mediastinal 30 Urine 765 600 Other: Voiding Method Indwelling Catheter Indwelling Catheter Indwelling Catheter ABP, PAP, CO, CI - Last Documented Arterial Blood Pressure 122/57 Pulmonary Artery Pressure 21/9 Cardiac Output 6.4 Cardiac Index 3.1 - Exam GENERAL EXAM: Patient is alert and oriented and doesn't appear to be in any acute distress HEENT: Normocephalic. Normal reaction of pupils, equal size, normal range of extraocular motion. No erythema or exudates in the throat. NECK: No masses, no nuchal rigidity. CHEST: No chest wall deformity. LUNGS: Equal air entry with no crackles or wheeze. HEART: S1 and S2 normal with no audible mumurs or gallops. Regular rhythm, femorals equal on both sides.. ABDOMEN: No hepatosplenomegaly, normal bowel sounds, no guarding or rigidity. SKIN: No rashes CENTRAL NERVOUS SYSTEM: No focal deficits. EXTREMITIES: No cyanosis, clubbing or edema. - Labs CBC & Chem 7: 01/07/20 04:03 01/07/20 04:03 Labs: Abnormal Lab Results - Last 24 Hours (Table) 01/06/20 01/06/20 01/07/20 Range/Units 17:02 20:55 04:03 RBC 3.02 L (4.30-5.90) m/uL Hgb 9.6 L (13.0-17.5) gm/dL Hct 28.3 L (39.0-53.0) % Plt Count 111 L (150-450) k/uL Chloride (98-107) mmol/L Carbon Dioxide (22-30) mmol/L Glucose (74-99) mg/dL POC Glucose (mg/dL) 165 H 200 H (75-99) mg/dL Total Protein (6.3-8.2) g/dL Albumin (3.5-5.0) g/dL 01/07/20 01/07/20 01/07/20 Range/Units 04:03 06:25 11:32 RBC (4.30-5.90) m/uL Hgb (13.0-17.5) gm/dL Hct (39.0-53.0) % Plt Count (150-450) k/uL Chloride 109 H (98-107) mmol/L Carbon Dioxide 21 L (22-30) mmol/L Glucose 172 H (74-99) mg/dL POC Glucose (mg/dL) 171 H 145 H (75-99) mg/dL Total Protein 5.4 L (6.3-8.2) g/dL Albumin 3.1 L (3.5-5.0) g/dL Assessment and Plan (1) S/P CABG (coronary artery bypass graft) Current Visit: Yes Status: Acute Code(s): Z95.1 - PRESENCE OF AORTOCORONARY BYPASS GRAFT SNOMED Code(s): 362046217 (2) Cardiomyopathy Current Visit: Yes Status: Acute Code(s): I42.9 - CARDIOMYOPATHY, UNSPECIFIED SNOMED Code(s): 84325631 (3) Essential hypertension Current Visit: Yes Status: Acute Code(s): I10 - ESSENTIAL (PRIMARY) HYPERTENSION SNOMED Code(s): 48069389 Plan: Continue current medical therapy. Increase activity. No need for LifeVest at this time
[2020-01-07 16:53] LABS: Glucose,Whole Blood 253 mg/dL (75-99)
[2020-01-07] MEDS: ACETAMINOPHEN TAB 325 MG TAB PO PRN (19:59)
[2020-01-07] MEDS: SENNOSIDES-DOCUSATE SODIUM 1 EACH TAB PO SCH (20:00)
[2020-01-07 20:09] LABS: Glucose,Whole Blood 209 mg/dL (75-99)
[2020-01-07] MEDS: SODIUM CHLORIDE 0.9% 1,000 ML IV SCH (21:53)
[2020-01-08] MEDS: MAGNESIUM HYDROXIDE 2,400 MG/10 ML CUP PO PRN (02:53)
[2020-01-08 05:00] VITALS: TEMP 97.5
[2020-01-08 06:18] LABS: Glucose,Whole Blood 181 mg/dL (75-99)
[2020-01-08] MEDS: ACETAMINOPHEN TAB 325 MG TAB PO PRN (06:52)
[2020-01-08] MEDS: INSULIN ASPART (NovoLOG) 100 UNIT/ML VIAL SQ SCH ×2 (06:54→12:57)
[2020-01-08] MEDS: PANTOPRAZOLE 40 MG TABLET PO SCH (06:54)
--- NOTE | 2020-01-08 07:32 | XR ---
EXAMINATION TYPE: XR chest 2V DATE OF EXAM: 01/08/2020 COMPARISON: 01/07/2020 HISTORY: Cardiac surgery evaluation TECHNIQUE: Frontal and lateral views of the chest are obtained. FINDINGS: Left basilar chest tube has been removed. No evidence for pneumothorax. Stable right basilar atelecta sis and/or infiltrate with small effusion. Pulmonary venous congestion without overt failure. The car diac silhouette size is within normal limits. The osseous structures are grossly intact. IMPRESSION: 1. Left basilar chest tube has been removed. No evidence for pneumothorax. Stable right basilar atel ectasis and/or infiltrate with small effusion. Pulmonary venous congestion without overt failure.
[2020-01-08 08:05] LABS: HCT 32.1 % (39.0-53.0); HGB 10.1 gm/dL (13.0-17.5); MCH 29.6 pg (25.0-35.0); MCHC 31.4 g/dL (31.0-37.0); MCV 94.1 fL (80.0-100.0); Mean Platelet Volume 11.8; Platelet Count 164 k/uL (150-450); RBC 3.41 m/uL (4.30-5.90); RDW 14.4 % (11.5-15.5)
[2020-01-08 08:25] LABS: African American GFR (CKD) >90 (>60 ml/min/1.73 sqM); Anion Gap 9 mmol/L; Blood Urea Nitrogen 15 mg/dL (9-20); Carbon Dioxide 22 mmol/L (22-30); Chloride 106 mmol/L (98-107); Glucose 172 mg/dL (74-99); Non-African American GFR(CKD) >90 (>60 ml/min/1.73 sqM); Potassium 4.3 mmol/L (3.5-5.1); Sodium 137 mmol/L (137-145)
[2020-01-08] MEDS ORDERED: FUROSEMIDE 10 MG/ML 4 ML VIAL IV STA (08:32)
[2020-01-08] MEDS: IPRATROPIUM-ALBUTEROL 3 ML NEB INHALATION SCH ×2 (08:38→13:32)
--- NOTE | 2020-01-08 09:14 | P.PN ---
Subjective Progress Note Date: 01/08/20 Principal diagnosis: Triple-vessel coronary artery disease with totally occluded obtuse marginal artery and right coronary artery with evidence of old posterolateral myocardial infarction, moderate left ventricular dysfunction with EF estimated at 30%. Previous medical history of recent non-STEMI, recent admission for acute systolic heart failure, hypertension, hyperlipidemia, uncontrolled type 2 diabetes mellitus with hyperglycemia and preoperative hemoglobin A1c 10.8%, obe sity, vertigo, and family history of premature coronary artery disease with father having had CABG in his 40s. POD #4 triple coronary artery bypass grafting using the left internal mammary artery to the left anterior descending artery, left radial artery from the aorta to the ramus intermedius artery, reverse saphenous vein graft from the aorta to the posterior descending artery, exclusion of the left atrial appendage using a 35 mm AtriClip, intraoperative transesophageal echocardiogram and epi-aortic scanning, endoscopic harvesting of the left radial artery, endoscopic harvesting of the left greater saphenous vein from the groin to above the ankle level, intraoperative graft flow measurements using the Retraceim system. Postoperative acute blood loss anemia and thrombocytopenia, expected, dilutional The patient's currently sitting up in a recliner in no acute distress on the cardiac stepdown unit. He states pain is controlled on current medication regimen, denies shortness of breath. Remains in normal sinus rhythm and hemodynamically stable. Ambulated in the hallway yesterday multiple times without difficulty. Limited echocardiogram completed yesterday with reported EF 35-40%, no need for LifeVest per cardiology. No new concerns. Objective - Vital Signs Vital signs: Vital Signs Temp 97.5 F L 01/08/20 04:00 Pulse 84 01/08/20 08:50 Resp 18 01/08/20 04:00 BP 117/77 01/08/20 04:00 Pulse Ox 99 01/08/20 04:00 Intake & Output 01/07/20 01/08/20 01/08/20 18:59 06:59 18:59 Intake Total 250 600 360 Output Total 250 Balance 0 600 360 Weight 102.1 kg Intake: Oral 250 600 360 Output: Urine 250 Other: Voiding Method Indwelling Catheter Toilet # Voids 2 ABP, PAP, CO, CI - Last Documented Arterial Blood Pressure 122/57 Pulmonary Artery Pressure 21/9 Cardiac Output 6.4 Cardiac Index 3.1 - Constitutional General appearance: Present: cooperative, no acute distress, obese - Respiratory Details: Lungs sounds diminished bilaterally. Respirations even, nonlabored. Currently on room air with oxygen saturation 99%. Able to achieve 9452-7658 mL on his incentive spirometry. Strong cough. - Cardiovascular Details: S1, S2 present. Regular rate and rhythm, sinus rhythm on telemetry. Sternum stable. Palpable peripheral pulses bilaterally. Trace generalized edema present. No calf pain or tenderness noted. Heart hugger in place with patient demonstrating appropriate use. Antiembolism stockings, SCDs present. - Gastrointestinal Gastrointestinal Comment(s): Abdomen soft, nontender, nondistended. Active bowel sounds present 4 quadrants. Tolerating diet. Positive flatus, negative bowel movement. - Genitourinary Genitourinary Comment(s): Continues to void clear, yellow urine - Integumentary Integumentary Comment(s): Skin is warm and dry with evidence of good perfusion. Anterior chest incision well approximated and covered with dry intact dressing. Left radial artery harvest site well approximated. 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 Left lower extremity EVH site well approximated without redness or drainage. - Neurologic Neurologic: Present: CNII-XII intact - Musculoskeletal Musculoskeletal: Present: gait normal, strength equal bilaterally - Psychiatric Psychiatric: Present: A&O x's 3, appropriate affect, intact judgment & insight - Allied health notes Allied health notes reviewed: nursing - Labs CBC & Chem 7: 01/08/20 06:48 01/08/20 06:48 Labs: Abnormal Lab Results - Last 24 Hours (Table) 01/07/20 01/07/20 01/07/20 Range/Units 11:32 16:51 20:07 RBC (4.30-5.90) m/uL Hgb (13.0-17.5) gm/dL Hct (39.0-53.0) % Creatinine (0.66-1.25) mg/dL Glucose (74-99) mg/dL POC Glucose (mg/dL) 145 H 253 H 209 H (75-99) mg/dL 01/08/20 01/08/20 01/08/20 Range/Units 06:16 06:48 06:48 RBC 3.41 L (4.30-5.90) m/uL Hgb 10.1 L (13.0-17.5) gm/dL Hct 32.1 L (39.0-53.0) % Creatinine 0.61 L (0.66-1.25) mg/dL Glucose 172 H (74-99) mg/dL POC Glucose (mg/dL) 181 H (75-99) mg/dL - Imaging and Cardiology Chest x-ray: report reviewed, image reviewed Assessment and Plan Assessment: 1. Triple-vessel coronary artery disease with totally occluded obtuse marginal artery and right coronary artery, status post three-vessel CABG 2. History of recent non-STEMI, recent admission for acute systolic heart failure with EF 30-35%, ischemic cardiomyopathy, recent limited echo demonstrating EF 35-40% 3. History of hypertension 4. History of hyperlipidemia, treated, cholesterol 223, LDL 163 5. Uncontrolled type 2 diabetes mellitus with hyperglycemia and preoperative hemoglobin A1c 10.8% 6. Restrictive lung disease due to obesity, preop FEV1 82% 7. Obesity 8. Vertigo 9. Family history of premature coronary artery disease with father having had CABG in his 40s 10. Postoperative acute blood loss anemia and thrombocytopenia, expected, dilutional Plan: 1. Continue aspirin, statin, Plavix, ARB, beta david therapy. Will increase beta david therapy as tolerated 2. Continue low-dose Norvasc for radial artery spasm. Do not discontinue CCB without discussed with cardiothoracic surgery 3. Encourage incentive spirometry use 10 times every hour while awake. Bronchodilators per pulmonology 4. Will monitor daily labs and x-rays. Electrolyte replacement per protocol. No transfusion. 5. GI/DVT prophylaxis 6. Pain controll with current medication regimen 7. Insulin management per Dr. Wray 8. Strict accurate intake and output 9. Daily weights using standard upscale, not bed scale 10. No LifeVest at discharge per cardiology 11. Discharge planning in progress, anticipate discharge to home with home care this afternoon 12. Follow-up discharge appointments will be made tomorrow and patient will be informed. The patient was seen and examined and I agree with the assessment and plan documented by the nurse practitioner Time with Patient: Greater than 30
[2020-01-08 09:28] VITALS: BP 119/79; PULSE 75; RESP 20
[2020-01-08] MEDS: METOPROLOL TARTRATE 25 MG TAB PO SCH (09:31)
[2020-01-08] MEDS: CLOPIDOGREL 75 MG TAB PO SCH (09:31)
[2020-01-08] MEDS: ATORVASTATIN 40 MG TAB PO SCH (09:31)
[2020-01-08] MEDS: HEPARIN SODIUM,PORCINE 5,000 UNIT/ML 1 ML VIAL SQ SCH (09:31)
[2020-01-08] MEDS: ASPIRIN 325 MG TAB PO SCH (09:32)
--- NOTE | 2020-01-08 11:28 | P.PN ---
Subjective Progress Note Date: 01/08/20 This is a 49-year-old gentleman who is status post bypass surgery. Patient is sitting up in the chair. Doesn't appear to be in acute distress. No arrhythmias are noted. A repeat echo Cardigan showed hypokinesis of the inferolateral burton and inferobasal segments. Ejection fraction so some improvement and seemed to be in the range of 35-40%. It appears that patient doesn't need any LifeVest. Continue current medical therapy. Increase his activity. Transferred to telemetry unit. Possible discharge within next 24-48 hours 01/07: Patient is seen today on the cardiac stepdown unit. He denies having any chest pain or shortness of breath. He is anxious to be discharged home today and arrangements are being made. He does not require LifeVest at the time of discharge. Plan is to continue current medical management. Objective - Vital Signs Vital signs: Vital Signs Temp 97.5 F L 01/08/20 04:00 Pulse 84 01/08/20 08:50 Resp 20 01/08/20 08:00 BP 119/79 01/08/20 08:00 Pulse Ox 100 01/08/20 08:00 Intake & Output 01/07/20 01/08/20 01/08/20 18:59 06:59 18:59 Intake Total 250 600 360 Output Total 250 Balance 0 600 360 Weight 102.1 kg Intake: Oral 250 600 360 Output: Urine 250 Other: Voiding Method Indwelling Catheter Toilet Toilet # Voids 2 ABP, PAP, CO, CI - Last Documented Arterial Blood Pressure 122/57 Pulmonary Artery Pressure 21/9 Cardiac Output 6.4 Cardiac Index 3.1 - Exam GENERAL EXAM: Patient is alert and oriented. Patient is resting and recliner appears to be comfortable. No acute distress HEENT: Normocephalic. Normal reaction of pupils, equal size. NECK: No masses, no nuchal rigidity. CHEST: No chest wall deformity. LUNGS: Equal air entry with no crackles or wheeze. HEART: S1 and S2 normal with no audible mumurs or gallops. Regular rhythm, femorals equal on both sides.. ABDOMEN: No hepatosplenomegaly, normal bowel sounds, no guarding or rigidity. SKIN: No rashes CENTRAL NERVOUS SYSTEM: No focal deficits. EXTREMITIES: No cyanosis, clubbing or edema. - Labs CBC & Chem 7: 01/08/20 06:48 01/08/20 06:48 Labs: Abnormal Lab Results - Last 24 Hours (Table) 01/07/20 01/07/20 01/07/20 Range/Units 11:32 16:51 20:07 RBC (4.30-5.90) m/uL Hgb (13.0-17.5) gm/dL Hct (39.0-53.0) % Creatinine (0.66-1.25) mg/dL Glucose (74-99) mg/dL POC Glucose (mg/dL) 145 H 253 H 209 H (75-99) mg/dL 01/08/20 01/08/20 01/08/20 Range/Units 06:16 06:48 06:48 RBC 3.41 L (4.30-5.90) m/uL Hgb 10.1 L (13.0-17.5) gm/dL Hct 32.1 L (39.0-53.0) % Creatinine 0.61 L (0.66-1.25) mg/dL Glucose 172 H (74-99) mg/dL POC Glucose (mg/dL) 181 H (75-99) mg/dL Assessment and Plan Plan: Assessment and Plan (1) S/P CABG (coronary artery bypass graft) Current Visit: Yes Status: Acute Code(s): Z95.1 - PRESENCE OF AORTOCORONARY BYPASS GRAFT SNOMED Code(s): 631194388 (2) Cardiomyopathy Current Visit: Yes Status: Acute Code(s): I42.9 - CARDIOMYOPATHY, UNS PECIFIED SNOMED Code(s): 53523510 (3) Essential hypertension Current Visit: Yes Status: Acute Code(s): I10 - ESSENTIAL (PRIMARY) HYPERTENSION SNOMED Code(s): 98836821 Plan: Continue current medical therapy. Increase activity. No need for LifeVest at this time Nurse practitioner note has been reviewed, I agree with documented findings and plan of care. Patient was seen and examined.
--- NOTE | 2020-01-08 11:39 | P.DS ---
Providers Date of admission: 01/04/20 05:49 Expected date of discharge: 01/08/20 Attending physician: Brandon Hylton Consults: 01/04/20 15:51 Consult Physician Routine Consulting Provider: Kristine Wilkinson Consult Reason/Comments: Funeral Arranger Consult: post cardiac surgery Do you want consulting provider notified?: Yes Consult Physician Routine Consulting Provider: Tim Wray Consult Reason/Comments: med mgmt; irish patient Do you want consulting provider notified?: Yes Consult Physician Routine Consulting Provider: Jorge Roca Consult Reason/Comments: Gambreler Consult: post cardiac surgery Do you want consulting provider notified?: Yes Primary care physician: Samir Ryan MD Hospital Course: FINAL DIAGNOSIS: 1. Triple-vessel coronary artery disease with totally occluded obtuse marginal artery and right coronary artery 2. History of recent non-STEMI 3. Recent admission for acute systolic heart failure with EF 30-35%, ischemic c ardiomyopathy, repeat limited echo EF 35-40% 4. History of hypertension 5. History of hyperlipidemia, cholesterol 223, LDL 163, treated 6. Uncontrolled type 2 diabetes mellitus with hyperglycemia and preoperative hemoglobin A1c 10.8% 7. Restrictive lung disease due to obesity, preoperative FEV1 82% of predicted 8. Obesity 9. Vertigo 10. Family history of premature coronary artery disease 11. Postoperative acute blood loss anemia and thrombocytopenia, expected, dilutional PRINCIPAL PROCEDURE: 1. Triple coronary artery bypass grafting using the left internal mammary artery to the left anterior descending artery, left radial artery from the aorta to the ramus intermedius artery, reverse saphenous vein graft from the aorta to the posterior descending artery 2. Exclusion of the left atrial appendage using a 35 mm AtriClip 3. Intraoperative transesophageal echocardiogram and epi-aortic scanning 4. Endoscopic harvesting of the left radial artery 5. Endoscopic harvesting of the left greater saphenous vein from the groin to above the ankle level 6. Intraoperative graft flow measurements using the [employer] assistant system HISTORY OF PRESENT ILLNESS: This is a 49-year-old active gentleman who previously had not followed on an outpatient basis with a primary care physician, however recently began to see Dr. Ryan for primary care. He presented to [facility] at the beginning of November with complaints of 2 week history of progressive shortness of breath as well as lower extremity edema. He was admitted in acute systolic heart failure, with cardiology workup to follow. Heart catheterization was completed demonstrating proximal LAD stenosis 50-60%, iFR 0.85, mid ramus stenosis 70%, circumflex stenosis 100%, RCA stenosis 90%, PLV 100% stenosis, and 2 lesions in the PDA, one 90% and one 80%. Transthoracic echocardiogram was also completed demonstrating moderate to severe left ventricular systolic function with ejection fraction 30-35%, grade 1 diastolic dysfunction, hypokinetic LV wall motion, trace mitral regurgitation, and trace tricuspid regurgitation without pulmonary hypertension. Consultation was placed to Dr. Hylton from cardiothoracic surgery. He was recommended to undergo coronary artery bypass grafting on an elective basis after recovery from acute heart failure. The usual perioperative course was discussed in detail with the patient, all risks and benefits were explained, all questions were answered, and consent was obtained to proceed with surgery. The patient was treated for heart failure as well as new onset diabetes, and was subsequently discharged to home on maximal medical therapy to return as an outpatient for surgery. HOSPITAL COURSE: The patient was brought to the hospital on 01/04/2020, taken to the preoperative area, prepared in the usual fashion, and subsequently taken to the operating room where Dr. Hylton performed three-vessel CABG. Upon completion of surgery the patient was transferred to the cardiovascular intensive care unit where he was recovered and monitored hemodynamically. He was extubated, all lines, tubes, and drips were discontinued when appropriate, and he was transferred to 3 S. cardiac stepdown unit for further monitoring and rehabilitation. His oxygen was titrated down, he continued to work with physical and occupational therapy, he was tolerating oral diet, his pain was controlled without narcotics, and he was ready to be discharged to home with [facility] care on postoperative day #4. He received written and verbal instruction regarding his medications, activity restrictions, signs and symptoms requiring physician notification, and follow-up appointments. COMPLICATIONS: The patient experienced no postoperative complications. Patient Condition at Discharge: Stable Plan - Discharge Summary Discharge Rx Participant: Yes New Discharge Prescriptions: New Aspirin 325 mg PO DAILY tab Metoprolol Tartrate [Lopressor] 25 mg PO BID #60 tab amLODIPine [Norvasc] 2.5 mg PO DAILY@1200 #30 tab Pantoprazole [Protonix] 40 mg PO AC-BRKFST #30 tablet.[address] Johns-Docusate Sodium [Senokot-S] 2 each PO HS #30 tab Acetaminophen Tab [Tylenol] 650 mg PO Q4HR PRN tab PRN Reason: Fever And/ Or Pain Continue Atorvastatin [Lipitor] 40 mg PO HS #30 tab Clopidogrel [Plavix] 75 mg PO DAILY #30 tablet Insulin Detemir [Levemir Flextouch] 20 units SQ HS Changed Losartan [Cozaar] 12.5 mg PO DAILY #0 Furosemide [Lasix] 40 mg PO DAILY #60 tablet Discontinued Nitroglycerin Sl Tabs [Nitrostat] 0.4 mg SUBLINGUAL Q5M PRN #30 tab PRN Reason: Chest Pain Mupirocin 2% Oint [Bactroban 2% Oint] 1 applic NASAL BID #1 tube carvediloL [Coreg] 12.5 mg PO BID-W/MEALS Aspirin 324 mg PO DAILY Discharge Medication List Atorvastatin [Lipitor] 40 mg PO HS #30 tab 12/08/19 [Rx] Clopidogrel [Plavix] 75 mg PO DAILY #30 tablet 12/08/19 [Rx] Insulin Detemir [Levemir Flextouch] 20 units SQ HS 12/29/19 [History] Acetaminophen Tab [Tylenol] 650 mg PO Q4HR PRN tab 01/08/20 [Rx] Aspirin 325 mg PO DAILY tab 01/08/20 [Rx] Furosemide [Lasix] 40 mg PO DAILY #60 tablet 01/08/20 [Rx] Losartan [Cozaar] 12.5 mg PO DAILY #0 01/08/20 [Rx] Metoprolol Tartrate [Lopressor] 25 mg PO BID #60 tab 01/08/20 [Rx] Pantoprazole [Protonix] 40 mg PO AC-BRKFST #30 tablet. 01/08/20 [Rx] Sennosides-Docusate Sodium [Senokot-S] 2 each PO HS #30 tab 01/08/20 [Rx] amLODIPine [Norvasc] 2.5 mg PO DAILY@1200 #30 tab 01/08/20 [Rx] Follow up Appointment(s)/Referral(s): Kristine Wilkinson MD [STAFF PHYSICIAN] - 2 Weeks Antonieta Fu NPC [Nurse Practitioner] - 01/12/20 11:00 am (To be seen in the surgeon's office behind the [facility], [address] [place] [address] [address]) Rehab [facility],Cardiac [NON-STAFF] - 4 Weeks (You will be called in 4-6 weeks for evaluation for cardiac rehab) Brandon Hylton MD [STAFF PHYSICIAN] - 4 Weeks Flaco Kern DO [STAFF PHYSICIAN] - [facility] - Samir Ryan MD [Primary Care Provider] - 2 Weeks Ambulatory/Diagnostic Orders: Complete Blood Count w/diff [LAB.AMB] Time Frame: 3 Days, Location: None Selected Comprehensive Metabolic Panel [LAB.AMB] Time Frame: 3 Days, Location: None Selected Activity/Diet/Wound Care/Special Instructions: DISCHARGE INSTRUCTIONS: 1. No driving for 4 weeks, or until physician gives their ok. 2. The patient should sleep in their own bed, no medical bed needed. 3. Stairs are not an issue. If the bedroom is upstairs, it is advised that the patient go up at night and down in the morning for the first week. Go slowly, using handrail and take 1 step at a time. 4. KARIS hose are to be worn for 30 days or until physician discontinues. 5. Heart hugger is to be worn 100% of the time until physician discontinues.(except when showering) 6. No lifting, pushing, or pulling more than 10 pounds for 12 weeks. The physician will advise of any restriction changes. 7. The patient is expected to continue the prescribed walking program. 8. Continue pain control per as needed orders. 9. Continue with incentive spirometry and splinting/heart hugger until otherwise directed by the physician. 10. Must shower daily using liquid antibacterial soap and a separate white washcloth for each individual incision. 11. Routine sternal incision care. No powders, lotions, ointments on incisions. No dressings are necessary on incisions unless they are draining. Dermabond tape is to remain on sternal incision until surgeon follow-up. 12. Please call surgeon/WINDOW TRIMMER APPRENTICE for temp greater than 101 F or purulent drainage from incisions. 13. All prescriptions given by surgeon for 30 days. Refills need to be filled through [employer] advanced operator maintainer/primary care physician. 14. A Red armband has been placed on the patient. It should be worn for 30 days post surgery and will be removed by the cardiac surgeons. If an ER visit is necessary, please make sure the number on the Red armband is called. 15. You have been referred to and are expected to begin Cardiac Rehab in approximately 4-6 weeks. 16. Please keep a log of your blood sugars and bring with you to your appointme nt with Dr. Ryan HOME HEALTH SERVICES TO PROVIDE: RN SKILLED HOME CARE SERVICES FOR POST-OP SURGICAL PATIENTS WITH THE FOLLOWING: Coronary Artery Bypass Surgery (CABG), Mitral Valve Replacement/Repair ( MVR), Aortic Valve Replacement/Repair (AVR) RN TO CONTINUE EDUCATION FROM ``ROAD TO A HEALTH HEART PATIENT EDUCATION MANUAL (GIVEN TO PATIENT IN THE HOSPITAL) MEDICATION RECONCILIATION WITH EDUCATION NEEDED ON FIRST HOME VISIT EMPHASIZE IMPORTANCE OF WEARING BREAST SUPPORT/HEART HUGGER ENCOURAGE USE OF INCENTIVE SPIROMETER 10 X EVERY HOUR WHILE AWAKE ENCOURAGE UTILIZATION OF LOWER EXTREMITY COMPRESSION STOCKINGS/KARIS HOSE and ELEVATE LEGS ABOVE LEVEL OF HEART WHILE AT REST. ENCOURAGE AMBULATION 3-5x/day INCREASING TOLERATES, WHILE AVOIDING EXTR EMES IN TEMPERATURE FREQUENCY: RN TO OPEN THE PATIENT WITHIN 24 HOURS OF DISCHARGE FROM THE HOSPITAL WITH TELEHEALTH INSTALLED AT [facility], RN TO VISIT 2-3 X A WEEK FOR 4 WEEKS ESTABLISHED BY PATIENT NEEDS. LABORATORY: CBC, CMP TO BE DRAWN ON THE THIRD DAY HOME, (RAN STAT) FAX RESULTS TO [phone]. TELEHEALTH PARAMETERS: WEIGHT: NOTIFY MD OF WEIGHT GAIN OF 2 LBS IN 24 HOURS OR 5 LBS IN ONE WEEK HR: NOTIFY MD OF HR <55 BPM OR HR>100 BPM BP: NOTIFY MD IF BP <90/55 OR BP>140/100 O2 SAT: NOTIFY MD IF PO2<93% ON ROOM AIR SEND TELEHEALTH REPORT TO CABINET ABRASIVE SANDBLASTER AND CARDIOVASCULAR SURGEON THE FIRST WEEK OF CARE AND THEN BI-WEEKLY. PLEASE ADDITIONALLY COMMUNICATE ANY ABNORMALS AND NEW FINDINGS TO THE SURGEONS OFFICE. For any questions or concerns please call paper box cutter Antonieta @ or Maurisio @ Discharge Disposition: HOME WITH HOME HEALTH SERVICES
[2020-01-08 12:13] LABS: Glucose,Whole Blood 179 mg/dL (75-99)
[2020-01-08] MEDS: amLODIPine 2.5 MG TAB PO SCH (12:56)
[2020-01-08] MEDS: LOSARTAN 25 MG TAB PO SCH (12:56)
--- NOTE | 2020-01-08 15:42 | P.PN ---
Subjective Progress Note Date: 01/08/20 Principal diagnosis: Status post CABG for triple vessel coronary artery disease, postoperative day #4 This is a 49-year-old white male recently diagnosed with triple-vessel coronary artery disease, patient underwent today elective triple coronary bypass grafting using BELTRAN to LAD, left radial artery to the ramus intermedius artery and reversed saphenous vein graft from the aorta to the posterior descending artery. Postoperatively, patient was on mechanical ventilation, and I was asked to see him on consultation. Ventilator settings were noted, patient was switched from IMV mode to assist control mode, rate was increased to 14 instead of 12, his tidal volume remains the same, PEEP remained the same at 8. Follow-up ABG is pending. Chest x-ray was reviewed and there was evidence of in proper placement of the [place]-Mik catheter, and this was pulled out and follow-up chest x-ray showed adequate placement in the left proximal pulmonary artery. Waveform was appropriate. And the [place]-Mik was wedging fine after adjustment. Patient was reevaluated today on 01/05/20, remains in the ICU, patient was extubated shortly after he arrived to the ICU from bypass surgery. Patient was extubated at 1905. Patient is sitting at a bedside chair, he is on 4 L nasal cannula with O2 saturation of 96%. He is not requiring any inotropes, not requiring any pressors, he is only on insulin at 7 units per hour. And he is on 0.9 normal saline at 50 mL per hour. Chest x-ray showed very minimal postoperative changes and atelectasis as expected. Patient is doing fairly well with incentive spirometry. CBC is relatively normal hemoglobin is 9.9. WBC count is 10.0. Basic metabolic profile is normal. Renal profile is normal. Patient was reevaluated today on 01/06/20, remains in the ICU, patient is currently sitting in the recliner, in no distress. Pain seems to be fairly well controlled. Patient denies any shortness of breath, denies any chest pain, has occasional nausea, controlled with Zofran. Patient is hemodynamically stable, not requiring any inotropes or process. Has been ambulating in the hallway. He did ambulate. Times yesterday. Chest x-ray is basically unremarkable. CBC is normal elective 7 normal renal profile is normal. Patient was reevaluated today on 01/07/20, presently in the ICU, patient is sitting at a bedside recliner, in no distress. Patient is doing great. He is on room air, relatively asymptomatic. Hemodynamically stable, in sinus rhythm, left pleural chest tube remains in place. Patient has been ambulating in the hallway without difficulty. Chest x-ray showed small tiny right-sided pleural effusion and bibasilar atelectasis, expected finding. CBC and electrolytes as well as renal profile are normal. Patient was reevaluated today on 01/08/20, patient is status post CABG for triple-vessel coronary artery disease, patient is doing great, sitting at a bedside chair, he is on the medical floor, chest x-ray is reassuring, and the patient is being considered for discharge home today. Again no cough no wheezing no shortness of breath no chest pain, and he is hemodynamically stable. Objective - Vital Signs Vital signs: Vital Signs Temp 97.5 F L 01/08/20 04:00 Pulse 84 01/08/20 08:50 Resp 20 01/08/20 08:00 BP 119/79 01/08/20 08:00 Pulse Ox 100 01/08/20 08:00 Intake & Output 01/07/20 01/08/20 01/08/20 18:59 06:59 18:59 Intake Total 250 600 360 Output Total 250 Balance 0 600 360 Weight 102.1 kg Intake: Oral 250 600 360 Output: Urine 250 Other: Voiding Method Indwelling Catheter Toilet Toilet # Voids 2 ABP, PAP, CO, CI - Last Documented Arterial Blood Pressure 122/57 Pulmonary Artery Pressure 21/9 Cardiac Output 6.4 Cardiac Index 3.1 - Exam Physical Exam: Revealed a 49-year-old white male obese in no distress. On room air. Head: Atraumatic normocephalic. HEENT:[Neck is supple.] [No neck masses.] [No thyromegaly.] [No JVD.] Chest: [Symmetrical chest expansion, crackles at the bases, no rhonchi and no wheezes. Cardiac Exam: [Normal S1 and S2, no S3 gallop, no murmur.] . Abdomen: [Soft, nontender, no megaly, no rebound, no guarding, normal bowel sounds.] Extremities: [No clubbing, no edema, no cyanosis.] Neurological Exam: [No focal neurologic deficit.] Alert and oriented 3. Psychiatric: Normal mood, affect and normal mental status examination. HEENT: No rashes - Labs CBC & Chem 7: 01/08/20 06:48 01/08/20 06:48 Labs: Abnormal Lab Results - Last 24 Hours (Table) 01/07/20 01/07/20 01/08/20 Range/Units 16:51 20:07 06:16 RBC (4.30-5.90) m/uL Hgb (13.0-17.5) gm/dL Hct (39.0-53.0) % Creatinine (0.66-1.25) mg/dL Glucose (74-99) mg/dL POC Glucose (mg/dL) 253 H 209 H 181 H (75-99) mg/dL 01/08/20 01/08/20 01/08/20 Range/Units 06:48 06:48 12:11 RBC 3.41 L (4.30-5.90) m/uL Hgb 10.1 L (13.0-17.5) gm/dL Hct 32.1 L (39.0-53.0) % Creatinine 0.61 L (0.66-1.25) mg/dL Glucose 172 H (74-99) mg/dL POC Glucose (mg/dL) 179 H (75-99) mg/dL Assessment and Plan Assessment: Impression: Status post CABG for triple vessel coronary artery disease, postoperative day #4 Severe LV dysfunction/ischemic cardiomyopathy. Postoperative atelectasis, expected. History of previous myocardial infarction. History of type 2 diabetes. History of dyslipidemia. Benign essential hypertension. Morbid obesity. Restrictive lung disease secondary to obesity. Family history of premature coronary artery disease. Recommendation: Continue to encourage incentive spirometry. Continue ambulation on a daily basis. Continue beta blockers statins and Plavix aspirin. Agree with discharge planning today, and follow-up on outpatient basis
--- NOTE | 2020-01-09 00:30 | P.PN ---
Subjective Progress Note Date: 01/07/20 Principal diagnosis: s/p CABG Mr. De Luna is a 49-year-old male with a past medical history of hypertension, hyperlipidemia, diabetes admitted to the hospital for NSTEMI 3 weeks ago. Eventually patient had cardiac catheterization showing triple-vessel disease and an echo showing EF of 30 to 35%. Patient underwent coronary artery bypass grafting. On 01/07/2020 -patient is sitting up in a chair by the bedside appears to be in no acute distress. He complains of mild chest soreness. Denies having any shortness of breath. Patient has been walking in the hallway without any difficulty. On reviewing the vitals patient's temperature of 98, heart rate 82, respiratory rate 14, blood pressure 110 x 77 saturating at 98% on room air. Labs showing white count of 9 platelets 111. Patient's blood sugars have been running between 100s to 200s. Objective - Vital Signs Vital signs: Vital Signs Temp 98.0 F 01/07/20 11:42 Pulse 72 01/07/20 11:42 Resp 18 01/07/20 11:42 BP 110/72 01/07/20 11:42 Pulse Ox 95 01/07/20 11:42 Intake & Output 01/06/20 01/07/20 01/07/20 18:59 06:59 18:59 Intake Total 911.367 240 Output Total 905 670 Balance 6.367 -430 Weight 101.3 kg Intake: IV 412 Albumin Human 25% 50 ml 100 In Empty Bag 1 bag @ 50 mls/hr IVPB Q1H HERNANDEZ Rx#: [id number] Sodium Chloride 0.9% 1, 240 000 ml @ 20 mls/hr IV . Q24H HERNANDEZ Rx#:[id number] pressure bag 72 Intake, IV Titration 9.367 Amount Insulin Regular 100 unit 9.367 In Sodium Chloride 0.9% 100 ml @ Per Protocol IV .Q0M HERNANDEZ Rx#:[id number] Oral 490 240 Output: Chest Tube Drainage 140 70 Left Pleural 110 70 Mediastinal 30 Urine 765 600 Other: Voiding Method Indwelling Catheter Indwelling Catheter Indwelling Catheter ABP, PAP, CO, CI - Last Documented Arterial Blood Pressure 122/57 Pulmonary Artery Pressure 21/9 Cardiac Output 6.4 Cardiac Index 3.1 - Exam Physical examination: GENERAL: Sitting upon a chair, awake EYES: Pupils equal. Conjunctiva normal. NECK: JVD unable to assess; masses not palpable. HEART: First and second heart sounds are normal; no edema. Heart hugger in place. LUNGS: Respiratory rate increased; decreased breath sounds. ABDOMEN: Soft, nontender, liver spleen not palpable, no masses palpable. PSYCH: Alert and oriented x3; mood and affect normal. - Labs CBC & Chem 7: 01/08/20 06:48 01/08/20 06:48 Labs: Abnormal Lab Results - Last 24 Hours (Table) 01/06/20 01/06/20 01/07/20 Range/Units 17:02 20:55 04:03 RBC 3.02 L (4.30-5.90) m/uL Hgb 9.6 L (13.0-17.5) gm/dL Hct 28.3 L (39.0-53.0) % Plt Count 111 L (150-450) k/uL Chloride (98-107) mmol/L Carbon Dioxide (22-30) mmol/L Glucose (74-99) mg/dL POC Glucose (mg/dL) 165 H 200 H (75-99) mg/dL Total Protein (6.3-8.2) g/dL Albumin (3.5-5.0) g/dL 01/07/20 01/07/20 01/07/20 Range/Units 04:03 06:25 11:32 RBC (4.30-5.90) m/uL Hgb (13.0-17.5) gm/dL Hct (39.0-53.0) % Plt Count (150-450) k/uL Chloride 109 H (98-107) mmol/L Carbon Dioxide 21 L (22-30) mmol/L Glucose 172 H (74-99) mg/dL POC Glucose (mg/dL) 171 H 145 H (75-99) mg/dL Total Protein 5.4 L (6.3-8.2) g/dL Albumin 3.1 L (3.5-5.0) g/dL Assessment and Plan Assessment: Assessment: -Status post but CABG -Acute postprocedure blood loss anemia expected from surgery -Dilutional thrombocytopenia -Diabetes mellitus type 2 on oral hypoglycemic -Essential hypertension -Chronic congestive heart failure from systolic dysfunction EF 30-35% from ischemic heart disease -Hypoalbuminemia- Plan: Doing better. Continue current medication treatment plan. Blood sugars are slightly on the higher side, will increase the sliding scale of Insulin . Thank you Dr. Hylton
--- NOTE | 2020-01-09 00:33 | P.PN ---
Subjective Progress Note Date: 01/08/20 Principal diagnosis: s/p CABG Mr. De Luna is a 49-year-old male with a past medical history of hypertension, hyperlipidemia, diabetes admitted to the hospital for NSTEMI 3 weeks ago. Eventually patient had cardiac catheterization showing triple-vessel disease and an echo showing EF of 30 to 35%. Patient underwent coronary artery bypass grafting. On 01/07/2020 -patient is sitting up in a chair by the bedside appears to be in no acute distress. He complains of mild chest soreness. Denies having any shortness of breath. Patient has been walking in the hallway without any difficulty. On reviewing the vitals patient's temperature of 98, heart rate 82, respiratory rate 14, blood pressure 110 x 77 saturating at 98% on room air. Labs showing white count of 9 platelets 111. Patient's blood sugars have been running between 100s to 200s. On 01/08/2020 -patient is sitting up in a chair by the bedside and ready for discharge. Patient denies having any active complaints. On reviewing the vitals afebrile. Reviewed labs within normal limits. Objective - Vital Signs Vital signs: Vital Signs Temp 97.5 F L 01/08/20 04:00 Pulse 84 01/08/20 08:50 Resp 20 01/08/20 08:00 BP 119/79 01/08/20 08:00 Pulse Ox 100 01/08/20 08:00 Intake & Output 01/07/20 01/08/20 01/08/20 18:59 06:59 18:59 Intake Total 250 600 360 Output Total 250 Balance 0 600 360 Weight 102.1 kg Intake: Oral 250 600 360 Output: Urine 250 Other: Voiding Method Indwelling Catheter Toilet Toilet # Voids 2 ABP, PAP, CO, CI - Last Documented Arterial Blood Pressure 122/57 Pulmonary Artery Pressure 21/9 Cardiac Output 6.4 Cardiac Index 3.1 - Exam Physical exam GENERAL: Sitting upon a chair, awake EYES: Pupils equal. Conjunctiva normal. NECK: JVD unable to assess; masses not palpable. HEART: First and second heart sounds are normal; no edema. Heart hugger in place. LUNGS: Respiratory rate increased; decreased breath sounds. ABDOMEN: Soft, nontender, liver spleen not palpable, no masses palpable. PSYCH: Alert and oriented x3; mood and affect normal. - Labs CBC & Chem 7: 01/08/20 06:48 01/08/20 06:48 Labs: Abnormal Lab Results - Last 24 Hours (Table) 01/07/20 01/07/20 01/08/20 Range/Units 16:51 20:07 06:16 RBC (4.30-5.90) m/uL Hgb (13.0-17.5) gm/dL Hct (39.0-53.0) % Creatinine (0.66-1.25) mg/dL Glucose (74-99) mg/dL POC Glucose (mg/dL) 253 H 209 H 181 H (75-99) mg/dL 01/08/20 01/08/20 01/08/20 Range/Units 06:48 06:48 12:11 RBC 3.41 L (4.30-5.90) m/uL Hgb 10.1 L (13.0-17.5) gm/dL Hct 32.1 L (39.0-53.0) % Creatinine 0.61 L (0.66-1.25) mg/dL Glucose 172 H (74-99) mg/dL POC Glucose (mg/dL) 179 H (75-99) mg/dL Assessment and Plan Assessment: Assessment: -Status post but CABG -Acute postprocedure blood loss anemia expected from surgery -Dilutional thrombocytopenia -Diabetes mellitus type 2 on oral hypoglycemic -Essential hypertension -Chronic congestive heart failure from systolic dysfunction EF 30-35% from ischemic heart disease -Hypoalbuminemia- Plan: Patient had questions regarding his insulin. Discussed with him that fasting blood sugars have to be in the goal of 90-1 20 and postprandial 2 hours should be between 1 20-1 80. He is to be continued on 20 units of Lantus every night. Patient is advised to keep a log of blood sugars and take it to his primary care physician. All the questions of the patient were answered. Thank you Dr. Hylton
== END 2020-01-08 13:30 | disposition home health service (06) | DRG 236 ==
LOC: 2ORMAIN 05:49 → 2SICU 14:41 → 3SCARD 01-07 19:03
PROVIDERS: ADMIT Surgery; ATTEND Surgery
PROC: 06BQ4ZZ Excision of Left Saphenous Vein, Percutaneous Endoscopic Approach (ICD-10-PCS; principal; 2020-01-04 08:30)
PROC: 02L70CK Occlusion of Left Atrial Appendage with Extraluminal Device, Open Approach (ICD-10-PCS; principal; 2020-01-04 08:30)
PROC: 02100AW Bypass Coronary Artery, One Artery from Aorta with Autologous Arterial Tissue, Open Approach (ICD-10-PCS; principal; 2020-01-04 08:30)
PROC: 4A033BC Measurement of Arterial Pressure, Coronary, Percutaneous Approach (ICD-10-PCS; principal; 2020-01-04 08:30)
PROC: 03BC4ZZ Excision of Left Radial Artery, Percutaneous Endoscopic Approach (ICD-10-PCS; principal; 2020-01-04 08:30)
PROC: 02100Z9 Bypass Coronary Artery, One Artery from Left Internal Mammary, Open Approach (ICD-10-PCS; principal; 2020-01-04 08:30)
PROC: B24BZZ4 Ultrasonography of Heart with Aorta, Transesophageal (ICD-10-PCS; principal; 2020-01-04 08:30)
PROC: 021009W Bypass Coronary Artery, One Artery from Aorta with Autologous Venous Tissue, Open Approach (ICD-10-PCS; principal; 2020-01-04 08:30)
PROC: 5A1221Z Performance of Cardiac Output, Continuous (ICD-10-PCS; principal; 2020-01-04 08:30)
DX: I25.10 Atherosclerotic heart disease of native coronary artery without angina pectoris (principal); D62 Acute posthemorrhagic anemia; I50.22 Chronic systolic (congestive) heart failure; J98.11 Atelectasis; E88.09 Other disorders of plasma-protein metabolism, not elsewhere classified; I11.0 Hypertensive heart disease with heart failure; I25.82 Chronic total occlusion of coronary artery; D69.59 Other secondary thrombocytopenia; E66.01 Morbid (severe) obesity due to excess calories; E11.65 Type 2 diabetes mellitus with hyperglycemia; E78.5 Hyperlipidemia, unspecified; R11.0 Nausea; I25.2 Old myocardial infarction; I25.5 Ischemic cardiomyopathy; J98.4 Other disorders of lung; R42 Dizziness and giddiness; Z68.34 Body mass index [BMI] 34.0-34.9, adult; Z79.02 Long term (current) use of antithrombotics/antiplatelets; Z79.4 Long term (current) use of insulin; Z79.82 Long term (current) use of aspirin; Z79.899 Other long term (current) drug therapy; Z82.49 Family history of ischemic heart disease and other diseases of the circulatory system; Z82.0 Family history of epilepsy and other diseases of the nervous system; Z84.89 Family history of other specified conditions
CPT/HCPCS: 71045; 71046; 80048; 80053; 82330; 82805; 83735; 85025; 85027; 85520; 85610; 85730; 86850; 86891; 86900; 86901; 86920; 93308; 94002; 94640

== ENCOUNTER → 2021-01-04 | Outpatient (CLI) | payer BC ==
[2021-01-04 14:25] LABS: Chol/HDL Ratio 4.51 Ratio; HDL Cholesterol 35.9 mg/dL (40.00-60.00); LDL Cholesterol,Calculated 108.9 mg/dL (0.0-131.0); Triglycerides 85.9 mg/dL (0.00-149.00); VLDL Calculation 17.18 mg/dL (5.00-40.00)
== END | disposition home or self-care (01) ==
LOC: LABWHC1 07:15
PROVIDERS: ATTEND Internal Medicine
DX: E78.2 Mixed hyperlipidemia (principal)
CPT/HCPCS: 36415; 80061; 84450; 84460

== ENCOUNTER 2023-02-20 17:16 | Emergency (ER) | payer BC ==
--- NOTE | 2023-02-20 17:40 | ED ---
General Adult HPI - General Stated complaint: left foot infection Time Seen by Provider: 02/20/23 17:39 Source: patient Mode of arrival: ambulatory Limitations: no limitations - History of Present Illness Initial comments: 52-year-old male history of diabetes presenting with chief complaint of infection to the left second toe. He was seen by his borematic operator today, he was started on Augmentin and instructed to get a stat MRI. He was told that he may need to come to the ER to receive an MRI. Patient has severe neuropathy. Denies any new known injury or trauma. No fever or chills. No nausea or vomiting. No loss of range of motion. - Related Data Home Medications Medication Instructions Recorded Confirmed Insulin Detemir [Levemir Flextouch 20 units SQ HS 12/29/19 01/04/20 Pen] Previous Rx's Medication Instructions Recorded Atorvastatin [Lipitor] 40 mg PO HS #30 tab 12/08/19 Clopidogrel [Plavix] 75 mg PO DAILY #30 tablet 12/08/19 Acetaminophen Tab [Tylenol] 650 mg PO Q4HR PRN tab 01/08/20 Aspirin 325 mg PO DAILY tab 01/08/20 Furosemide [Lasix] 40 mg PO DAILY #60 tablet 01/08/20 Losartan [Cozaar] 12.5 mg PO DAILY #0 01/08/20 Metoprolol Tartrate [Lopressor] 25 mg PO BID #60 tab 01/08/20 Pantoprazole [Protonix] 40 mg PO AC-BRKFST #30 tablet. 01/08/20 Sennosides-Docusate Sodium 2 each PO HS #30 tab 01/08/20 [Senokot-S] amLODIPine [Norvasc] 2.5 mg PO DAILY@1200 #30 tab 01/08/20 Allergies Allergy/AdvReac Type Severity Reaction Status Date / Time No Known Allergies Allergy Verified 01/04/20 06:17 Review of Systems ROS Statement: Those systems with pertinent positive or pertinent negative responses have been documented in the HPI. ROS Other: All systems not noted in ROS Statement are negative. Past Medical History Past Medical History: Coronary Artery Disease (CAD), Heart Failure, Diabetes Mellitus, Hyperlipidemia, Hypertension, Myocardial Infarction (DE) Additional Past Medical History / Comment(s): Sinus infections/allergies Last Myocardial Infarction Date:: unknown History of Any Multi-Drug Resistant Organisms: None Reported Past Surgical History: Heart Catheterization Past Anesthesia/Blood Transfusion Reactions: Unable to Obtain Additional Past Anesthesia/Blood Transfusion Reaction / Comment(s): Pt has never had anesthesia Smoking Status: Never smoker - Past Family History Father Family Medical History: Coronary Artery Disease (CAD), Hyperlipidemia Additional Family Medical History / Comment(s): Father had CABG in his 40s Mother Family Medical History: Neurologic Disorder Additional Family Medical History / Comment(s): Mother of progressive neuropalsy General Exam - General Exam Comments Initial Comments: Visual Physical Exam Vital signs reviewed General: Well-appearing, nontoxic, no acute distress. Head: Normocephalic, atraumatic Eyes: PERRLA, EOMI ENT: Airway patent Chest: Nonlabored breathing Skin: No visual rash, normal skin tone Neuro: Alert and oriented 3 Musculoskeletal: No gross abnormalities Limitations: no limitations General appearance: alert, in no apparent distress Head exam: Present: atraumatic, normocephalic Eye exam: Present: normal appearance Neck exam: Present: normal inspection Respiratory exam: Absent: respiratory distress Left Foot/Toe exam: Present: erythema (Erythema to his he left second toe, previous amputation of the first toe. Deformity of the third toe) Neurological exam: Present: alert, oriented X3 Psychiatric exam: Present: normal affect, normal mood Course Vital Signs 02/20/23 02/20/23 17:39 23:47 Temperature 97.8 F 97.7 F Pulse Rate 62 72 Respiratory 16 18 Rate Blood Pressure 165/104 131/99 O2 Sat by Pulse 99 100 Oximetry Medical Decision Making - Medical Decision Making Was pt. sent in by a medical professional or institution (, PA, MONORAIL CRANE OPERATOR, urgent care, hospital, or intermediate...) When possible be specific @ -Sent by borematic operator Did you speak to anyone other than the patient for history (EMS, parent, family, police, friend...)? What history was obtained from this source @ -No Did you review nursing and triage notes (agree or disagree)? Why? @ -I reviewed and agree with nursing and triage notes Were old charts reviewed (outside hosp., previous admission, EMS record, old EKG, old radiological studies, urgent care reports/EKG's, intermediate records)? Report findings @ -No old charts were reviewed Differential Diagnosis (chest pain, altered mental status, abdominal pain women, abdominal pain men, vaginal bleeding, weakness, fever, dyspnea, syncope, headache, dizziness, GI bleed, back pain, seizure, CVA, palpatations, mental health, musculoskeletal)? @ -Differential Musculoskeletal Muscular strain, contusion, ligament sprain, fracture, arthritis, septic arthritis, bursitis, cellulitis, muscle spasm, nerve compression, DVT, arterial occlusion, herpes zoster, electrolyte abnormality, tumor.... This is not meant to be in all inclusive list EKG interpreted by me (3pts min.). @ -As above X-rays interpreted by me (1pt min.). @ -Acute fracture of the third digit proximal phalanx mild displacement. No de finitive intra-articular extension. Amputation changes of the first digit at the metatarsal head/metatarsal-phalangeal joint. No evidence for osseous erosion. Second digit deformity to the metatarsal heads suggestive of prior fracture with some bony remodeling/calcification. CT interpreted by me (1pt min.). @ -None done U/S interpreted by me (1pt. min.). @ -None done What testing was considered but not performed or refused? (CT, X-rays, U/S, labs)? Why? @ -None What meds were considered but not given or refused? Why? @ -None Did you discuss the management of the patient with other professionals (professionals i.e. , PA, MONORAIL CRANE OPERATOR, lab, RT, psych nurse, social media analyst, infectious disease technician, teacher, business services officer, rn case mgr)? Give summary @ -No Was smoking cessation discussed for >3mins.? @ -No Was critical care preformed (if so, how long)? @ -No Were there social determinants of health that impacted care today? How? (Homelessness, low income, unemployed, alcoholism, drug addiction, transportation, low edu. Level, literacy, decrease access to med. care, detention, rehab)? @ -No Was there de-escalation of care discussed even if they declined (Discuss DNR or withdrawal of care, Hospice)? DNR status @ -No What co-morbidities impacted this encounter? (DM, HTN, Smoking, COPD, CAD, Cancer, CVA, ARF, Chemo, Hep., AIDS, mental health diagnosis, sleep apnea, morbid obesity)? @ -None Was patient admitted / discharged? Hospital course, mention meds given and route, prescriptions, significant lab abnormalities, going to OR and other pertinent info. @ -52-year-old male presenting with chief complaint of infection to the left second toe. He was seen at his borematic operator earlier today he was started on Augmentin and instructed to get an MRI. He was told he may be about to get an MRI if he comes to the ER. History of physical exam were conducted. There is some erythema and swelling to the left second digit. No leukocytosis or anemia on lab work. X-ray shows acute fracture to the third toe. Patient has no known injuries however he does have severe neuropathy. Patient is provided with a postop shoe, given the patient's severe neuropathy I do not believe that samantha taping the toe would be beneficial. He is instructed to follow-up with his borematic operator, obtain his outpatient MRI, and take antibiotics as prescribed. Follow-up with PCP. Report back to ER with any new or worsening symptoms. Discussed return parameters and answered all questions. Patient conveyed verbal understanding and agreed to the plan. I discussed this case in detail with my attending Dr. Noland Undiagnosed new problem with uncertain prognosis? @ -No Drug Therapy requiring intensive monitoring for toxicity (Heparin, Nitro, Insulin, Cardizem)? @ -No Were any procedures done? @ -No Diagnosis/symptom? @ -Cellulitis Acute, or Chronic, or Acute on Chronic? @ -Acute Uncomplicated (without systemic symptoms) or Complicated (systemic symptoms)? @ -Uncomplicated Side effects of treatment? @ -No Exacerbation, Progression, or Severe Exacerbation? @ -No Poses a threat to life or bodily function? How? (Chest pain, [place], [place], pneumonia, PE, COPD, DKA, ARF, appy, cholecystitis, CVA, Diverticulitis, Homicidal, Suicidal, threat to staff... and all critical care pts) @ -No - Lab Data Result diagrams: 02/20/23 22:45 Lab Results 02/20/23 02/20/23 Range/Units 18:36 22:45 WBC 7.6 (3.8-10.6) k/uL RBC 5.50 (4.30-5.90) m/uL Hgb 17.3 (13.0-17.5) gm/dL Hct 49.9 (39.0-53.0) % MCV 90.7 (80.0-100.0) fL MCH 31.4 (25.0-35.0) pg MCHC 34.6 (31.0-37.0) g/dL RDW 13.7 (11.5-15.5) % Plt Count 147 L (150-450) k/uL MPV 9.1 Neutrophils % 65 % Lymphocytes % 26 % Monocytes % 5 % Eosinophils % 2 % Basophils % 1 % Neutrophils # 5.0 (1.3-7.7) k/uL Lymphocytes # 2.0 (1.0-4.8) k/uL Monocytes # 0.4 (0-1.0) k/uL Eosinophils # 0.1 (0-0.7) k/uL Basophils # 0.0 (0-0.2) k/uL Plasma Lactic Acid [place]ar 1.4 (0.7-2.0) mmol/L Disposition Clinical Impression: Cellulitis Disposition: HOME SELF-CARE Condition: Fair Instructions (If sedation given, give patient instructions): Cellulitis (ED) Additional Instructions: Follow-up with your borematic operator. Report back to ER with any worsening symptoms. Continue taking antibiotics as prescribed by borematic operator. Is patient prescribed a controlled substance at d/c from ED?: No Referrals: Deepak Mims MD [Primary Care Provider] - 1-2 days Time of Disposition: 23:29
--- NOTE | 2023-02-20 19:49 | XR ---
EXAMINATION TYPE: XR foot complete LT DATE OF EXAM: 02/20/2023 7:31 PM CLINICAL INDICATION:Male, 52 years old with history of infection; [facility] COMPARISON: None TECHNIQUE: XR foot complete LT examined in the AP, oblique, and lateral projections. FINDINGS/IMPRESSION: * Acute fracture of the third digit proximal phalanx mild displacement. No definitive intra-articula r extension.. * Amputation changes of the first digit at the metatarsal head/metatarsal phalangeal joint. No evide nce for osseous erosion. * Second digit deformity to the metatarsal head suggestive of prior fracture with some bony remodeli ng/calcification.
[2023-02-20 23:08] LABS: Basophils % (A) 1 %; Eosinophils # (A) 0.1 k/uL (0-0.7); Eosinophils % (A) 2 %; HCT 49.9 % (39.0-53.0); HGB 17.3 gm/dL (13.0-17.5); Lymphocytes % (A) 26 %; MCH 31.4 pg (25.0-35.0); MCHC 34.6 g/dL (31.0-37.0); MCV 90.7 fL (80.0-100.0); Mean Platelet Volume 9.1; Monocytes # (A) 0.4 k/uL (0-1.0); Monocytes % (A) 5 %; Neutrophils % (A) 65 %; Platelet Count 147 k/uL (150-450); RDW 13.7 % (11.5-15.5); WBC 7.6 k/uL (3.8-10.6)
[2023-02-20 23:57] VITALS: BP 131/99; PULSE 72; RESP 18; TEMP 97.7
== END 2023-02-20 23:48 | disposition home or self-care (01) ==
LOC: EC 17:16
DX: L03.116 Cellulitis of left lower limb (principal); I11.0 Hypertensive heart disease with heart failure; I50.9 Heart failure, unspecified; E11.9 Type 2 diabetes mellitus without complications; I25.10 Atherosclerotic heart disease of native coronary artery without angina pectoris; I25.2 Old myocardial infarction; Z79.4 Long term (current) use of insulin
CPT/HCPCS: 36415; 83605; 85025; 99283

== ENCOUNTER → 2023-03-04 | Outpatient (CLI) | payer BC ==
--- NOTE | 2023-03-06 10:52 | MR ---
EXAMINATION TYPE: MR foot LT wo con DATE OF EXAM: 03/04/2023 COMPARISON: Left foot radiograph 02/20/2023 HISTORY: Left Big Toe amputated August 10 2022, Osteomyelitis of Left Foot - Ulcer Left Foot TECHNIQUE: Multiplanar, multisequence images of the left foot were acquired without contrast. FINDINGS: BONES/CARTILAGE/JOINT: Patient is status post first transmetatarsal amputation. There is slight hypointense signal and bone marrow edema within the intramedullary canal of the first digit metatarsal, this could relate to a sheffield rgical changes and/or osteitis. Diffuse low T1 signal and corresponding high T2 signal throughout the second metatarsal. Similar low T1/high T2 signal is present in the third metatarsal head, third proximal phalanx, fourth metatarsal head, fourth proximal phalanx, and fourth middle phalanx. These findings are all most consistent with osteomyelitis. Slightly proximally retracted fracture of the plantar aspect proximal phalanx third digit. Articular cartilage is normal. Small effusion in the fourth MTP joint. LIGAMENTS: Spring ligament is normal. Lisfranc ligament normal. TENDONS: Full thickness tear of the third digit flexor tendons, retracted to the level of the MTP joint Extensor tendons are normal. SOFT TISSUES: Diffuse intramuscular edema within the plantar musculature. Dorsal soft tissue edema. Sinus tarsi is normal. Plantar calcaneal spur. Proximal plantar fascia is thickened to 9 mm, consistent with plantar fasciit is. Overlying adventitial bursa formation in the plantar subcutaneous fat. Neurovascular structures are normal. IMPRESSION: 1. First digit transmetatarsal amputation. Mildly low T1 signal and bone marrow edema in the first me tatarsal stump may represent osteitis versus postsurgical changes. 2. Significant abnormality in the second metatarsal, third metatarsal, third proximal phalanx, fourth metatarsal, fourth proximal and middle phalanx, most consistent with osteomyelitis adnexa 3. Fracture/fragmentation of the third digit proximal phalanx. Full-thickness tear of the third digit flexor tendons 4. Reactive edema throughout the forefoot. 5. Plantar fasciitis and overlying adventitial bursa.
== END | disposition home or self-care (01) ==
LOC: RADMRIMAIN 18:34
PROVIDERS: ATTEND Podiatrist Foot & Ankle Surgery
DX: M86.172 Other acute osteomyelitis, left ankle and foot (principal); E11.42 Type 2 diabetes mellitus with diabetic polyneuropathy; M67.874 Other specified disorders of tendon, left ankle and foot; M24.875 Other specific joint derangements left foot, not elsewhere classified; L97.529 Non-pressure chronic ulcer of other part of left foot with unspecified severity; Z98.890 Other specified postprocedural states

== ENCOUNTER → 2023-09-07 | Outpatient (CLI) | payer BC ==
[2023-09-07 10:48] LABS: Basophils # (A) 0.05 X 10*3/uL (0.00-0.10); Basophils % (A) 0.9 %; Eosinophils # (A) 0.17 X 10*3/uL (0.04-0.35); Eosinophils % (A) 2.9 %; HCT 51.3 % (39.6-50.0); HGB 17.3 g/dL (13.0-17.0); Lymphocytes # (A) 1.64 X 10*3/uL (0.90-5.00); Lymphocytes % (A) 28.4 %; MCH 30.5 pg (27.0-32.0); MCHC 33.7 g/dL (32.0-37.0); MCV 90.3 FL (80.0-97.0); Mean Platelet Volume 12.9 FL (9.5-12.2); Monocytes # (A) 0.43 X 10*3/uL (0.20-1.00); Monocytes % (A) 7.4 %; NRBC Per 100 WBC 0 X 10*3/uL (0.00-0.01); Neutrophils # (A) 3.47 X 10*3/uL (1.80-7.70); Neutrophils % (A) 60.1 %; Platelet Count 128 X 10*3/uL (140-440); RBC 5.68 X 10*6/uL (4.40-5.60); RDW 13.6 % (11.5-14.5); WBC 5.78 X 10*3/uL (4.50-10.00)
[2023-09-07 10:53] LABS: ALT 82 U/L (10-49); AST 53 U/L (14-35); Albumin 4.6 g/dL (3.8-4.9); Albumin/Globulin Ratio 2.09 Ratio (1.60-3.17); Alkaline Phosphatase 103 U/L (41-126); Blood Urea Nitrogen 14.6 mg/dL (9.0-27.0); C Reactive Protein <0.30 mg/dL (0.00-0.80); Calcium 9.4 mg/dL (8.7-10.3); Carbon Dioxide 23.6 mmol/L (21.6-31.8); Chloride 107 mmol/L (96-109); Creatine Kinase 83 U/L (35-257); Globulin 2.2 g/dL (1.6-3.3); Glucose 145 mg/dL (70-110); Potassium 4.3 mmol/L (3.5-5.5); Sodium 143 mmol/L (135-145); Total Protein 6.8 g/dL (6.2-8.2)
[2023-09-07 11:06] LABS: Erythrocyte Sedimentation Rate 3 mm/Hr (0-15)
== END | disposition home or self-care (01) ==
LOC: LABWHC1 07:01
PROVIDERS: ATTEND Internal Medicine Infectious Disease
DX: M86.172 Other acute osteomyelitis, left ankle and foot (principal)
CPT/HCPCS: 36415; 80053; 82550; 85025; 85652; 86140

== ENCOUNTER 2024-06-08 07:30 | Day surgery (SDC) | payer BC ==
[2024-06-03 12:29] VITALS: BMI 36.0
[~2024-06-08 07:30] MED LIST changes: -ALBUMIN HUMAN 25% 50 ML IV ONE; -ALBUMIN HUMAN 5% 500 ML IVPB ONE; -ASPIRIN 325 MG TAB PO ONE; -CALCIUM CHLORIDE 100 MG/ML 10 ML SYRINGE IV ONE; -CHLORHEXIDINE GLUCONATE 15 ML CUP MUCOUS MEM ONE; -CLEVIDIPINE BUTYRATE 25 MG in EMPTY BAG 1 BAG IV ONE; -DEXTROSE 5% IN WATER 1,000 ML with POTASSIUM CHLORIDE 110 MEQ, MAGNESIUM SULFATE 16 MEQ... IV ONE; -DEXTROSE 5% IN WATER 1,000 ML with POTASSIUM CHLORIDE 25 MEQ, SODIUM CHLORIDE 2.5MEQ/ML... IRRIGATION ONE; -DILTIAZEM 125 MG in SODIUM CHLORIDE 0.9% 100 ML IV ONE; -HEPARIN SODIUM 1,000 UN/ML (10ML VL) IV ONE; -HEPARIN SODIUM,PORCINE 5,000 UNIT in SODIUM CHLORIDE 0.9% 500 ML 500 ML IV ONE; -INSULIN REGULAR 100 UNIT in SODIUM CHLORIDE 0.9% 100 ML IV ONE; +LACTATED RINGERS 1,000 ML IV SCH; -MAGNESIUM SULFATE MG 500 MG/ML IV ONE; -MANNITOL 25% 12.5 GM/50 ML VIAL IV ONE; -NITROGLYCERIN-D5W PMX 25 MG/250 ML BTL IV ONE; -NITROGLYCERIN-D5W PMX 50 MG in DEXTROSE/WATER 1 250ML.BAG IV ONE; -NOREPINEPHRINE 4 MG in SODIUM CHLORIDE 0.9% 250 ML IV ONE; -PAPAVERINE 360 MG in SODIUM CHLORIDE 0.9% 90 ML IV ONE; -PHENYLEPHRINE 10 MG/ML VIAL IV ONE; -PHENYLEPHRINE 40 MG in SODIUM CHLORIDE 0.9% 250 ML IV ONE; -PROTAMINE SULFATE 10 MG/ML 25 ML VIAL IV ONE; -PROTAMINE SULFATE 250 MG in EMPTY BAG 1 BAG IV ONE; -SODIUM BICARB 8.4% 50 ML SYR (1 MEQ/ML) IV ONE; -SODIUM CHLORIDE 0.9% 1,000 ML IV ONE; -TRANEXAMIC ACID 2,000 MG in SODIUM CHLORIDE 0.9% 80 ML IV ONE; -ceFAZolin 1,000 MG in SODIUM CHLORIDE 0.9% IRRIGATIO 1,000 ML IRRIGATION ONE; -ceFAZolin 2,000 MG in SODIUM CHLORIDE 0.9% 30 ML IVPB ONE; -propofoL 1,000 MG/100 ML VIAL IV ONE
[2024-06-08 07:50] VITALS: TEMP 97.5
[2024-06-08] MEDS: IV FLUID CONTINUATION 1,000 ML IV ONE ×2 (07:50→08:22)
[2024-06-08 08:06] LABS: Glucose,Whole Blood 104 mg/dL (70-110)
[2024-06-08] MEDS ORDERED: PROPOFOL 10 MG/ML 20 ML VIAL IV ONE ×2 (08:31)
--- NOTE | 2024-06-08 08:43 | P.PCN ---
Date of Procedure: 06/08/24 Procedure(s) Performed: BRIEF HISTORY: Patient is a 53-year-old pleasant white male scheduled for an elective colonoscopy as a part of screening for colon cancer. PROCEDURE PERFORMED: Colonoscopy with snare polypectomy PREOPERATIVE DIAGNOSIS: Screening for colon cancer. IV sedation per Anesthesia. PROCEDURE: After informed consent was obtained, the patient, was brought into the endoscopy unit. IV sedation was administered by Anesthesia under continuous monitoring. Digital rectal examination was normal. Initially the Olympus CF-160 flexible video colonoscope was then inserted in the rectum, gradually advanced into the cecum without any difficulty. Careful examination was performed as the scope was gradually being withdrawn. Ileocecal valve and the appendiceal orifice were visualized and appeared normal. Prep was excellent. Mucosa of the cecum 5 mm polyp removed by cold snare polypectomy. In the transverse colon there was a 3 mm polyp removed by cold snare polypectomy. Rest of the, ascending colon, transverse colon, descending colon, sigmoid colon, and rectum appeared normal. The mid rectum there was a 1.2 cm polyp removed by snare polypectomy. Retroflexion was performed in the rectum and no lesions were seen. The patient tolerated the procedure well. IMPRESSION: 5 mm cecal polyp status post cold snare polypectomy 3 mm transverse colon polyp status post cold snare polypectomy 1.2 cm mid rectal polyp status post polypectomy Small internal hemorrhoid RECOMMENDATIONS: Findings of this examination were discussed with the patient as well as his family. He was advised to follow-up with the biopsy results. If the biopsy reveals adenoma he can have repeat colonoscopy in 3 years..
[2024-06-08 09:05] VITALS: RESP 18
[2024-06-08 09:28] VITALS: BP 118/79; PULSE 70
== END 2024-06-08 09:30 | disposition home or self-care (01) ==
LOC: ORWHC2ENDO 07:30
PROVIDERS: ATTEND Internal Medicine Gastroenterology
DX: Z12.11 Encounter for screening for malignant neoplasm of colon (principal); D12.0 Benign neoplasm of cecum; D12.3 Benign neoplasm of transverse colon; D12.8 Benign neoplasm of rectum; K64.8 Other hemorrhoids; I11.0 Hypertensive heart disease with heart failure; I50.9 Heart failure, unspecified; I25.10 Atherosclerotic heart disease of native coronary artery without angina pectoris; E78.5 Hyperlipidemia, unspecified; E11.9 Type 2 diabetes mellitus without complications; N28.9 Disorder of kidney and ureter, unspecified; Z87.442 Personal history of urinary calculi; Z79.82 Long term (current) use of aspirin; Z79.899 Other long term (current) drug therapy
CPT/HCPCS: 88305; 45385; J2704